=== PATIENT | male | born 1930 | race Caucasian/White ===

== ENCOUNTER 2017-07-30 17:25 | Emergency (ER) | payer MEDICARE, BC ==
[2017-07-30] MEDS ORDERED: NS 0.9% 1000 ML* 1,000 ML IV ONE (18:01)
[2017-07-30 18:27] LABS: ABS Basophils 0.1 10^3/ul (0-0.2); ABS Eosinophils 0.2 10^3/ul (0-0.6); ABS Lymphocytes 2.1 10^3/ul (1.0-4.8); ABS Monocytes 1.2 10^3/ul (0-0.8); ABS Neutrophils 5.3 10^3/ul (1.5-7.7); ABS Nucleated RBC 0.01 10^3/ul; Eosinophil % 2.1 % (0-6); Hematocrit 47 % (42-52); Hemoglobin 16.1 g/dl (14.0-18.0); Lymphocyte % 23.8 % (25-47); Mean Corpuscular HGB Conc 34 g/dl (31-36); Mean Corpuscular Hemoglobin 34 pg (27-31); Mean Corpuscular Volume 98 fL (80-94); Mean Platelet Volume 8 um3 (7.4-10.4); Nucleated Red Blood Cells % 0.1; Platelet Count 256 10^3/ul (150-450); Red Cell Distribution Width 15 % (10.5-15); White Blood Count 8.9 10^3/ul (3.5-10.8)
[2017-07-30 18:34] LABS: INR 1.49 (0.77-1.02)
[2017-07-30 18:42] LABS: EGFR Non-African American 73.6 (>60)
--- NOTE | 2017-07-30 18:48 | ED ---
Kang Medina Angela, scribed for Olimpia Borden MD on 07/30/17 at 1753 . Adult Trauma - HPI Summary HPI Summary: This pt is a 86 y/o male presenting to [facility] via EMS from [place] c/o mechanical fall today. Pt reports he was walking to the bathroom (with his walker) when he went to open the door and he believes he tripped on his left foot, subsequently falling. He denies head strike or LOC. When asked if anything hurts, pt replies "just my pride." He reports his hips are sore, more left than right, and states they have been sore for a long time. Pt notes "I'm embarrassed that I fell." He denies having chest pain or dizziness prior to his fall. Pt currently denies headache, neck pain, abd pain, nausea, vomiting. Pt normally ambulates with his walker. Pt is unsure if he is on any anticoagulants. Per EMS records: Pt's Tramadol has changed to TID from qd, trazodone changed from 100 mg to 200 mg. Pt is currently on Ativan TID. PMHx includes depression, anxiety, diabetes, chronic back pain, pacemaker. EMS also report that [place] stated pt had decreased appetite, not his usual self. Medication list later faxed from [facility] show pt is on Eliquis Vital signs on initial encounter are: Blood Pressure: 126/75 Pulse: 75 O2 Sat: 96 Respiration: 17 - History of Current Complaint Chief Complaint: EDGeneral Stated Complaint: INCREASED WEAKNESS Hx Obtained From: Patient Mechanism of Injury: Fall Loss of Consciousness: no loss of consciousness Onset/Duration: Started Hours Ago, Traumatic, Still Present Onset of Pain: Hours Onset Severity: Moderate Current Severity: Severe Pain Intensity: 8 Pain Scale Used: 0-10 Numeric Location: Other - left hip Character: Aching Aggravating Factor(s): Nothing Alleviating Factor(s): Nothing Associated Signs & Symptoms: Positive: Other: - left hip pain. Negative: SOB, Chest Pain, Nausea/Vomiting, Loss of Consciousness Related History: Anticoagulants - Additional Pertinent History Primary Care Physician: ISRA - Allergy/Home Medications Allergies/Adverse Reactions: Allergies Allergy/AdvReac Type Severity Reaction Status Date / Time No Known Allergies Allergy Verified 05/26/16 11:30 Home Medications: Home Medications Acetaminophen [Acetaminophen Extra Stren] 1,000 mg PO Q8HR PRN 07/30/17 [ History Confirmed 07/30/17] Apixaban* [Eliquis*] 5 mg PO Q12HR 07/30/17 [History Confirmed 07/30/17] Artificial Tear OPHTH.OINT* [Lacrilube OINT*] 1 applic BOTH EYES Q8HR PRN [History Confirmed 07/30/17] Carvedilol TAB* [Coreg TAB*] 3.125 mg PO BID 07/30/17 [History Confirmed ] Cholecalciferol TAB* [Vitamin D TAB*] 2,000 units PO DAILY PRN 07/30/17 [ History Confirmed 07/30/17] Finasteride TAB* [Proscar TAB*] 5 mg PO DAILY PRN 07/30/17 [History Confirmed ] LORazepam TAB(*) [Ativan 1 MG TAB (*)] 1 mg PO BID 07/30/17 [History Confirmed 07/30/17] Polyethylene Glycol 3350* [Miralax*] 17 gm PO DAILY 07/30/17 [History Confirmed 07/30/17] Senna/Docusate (NF) [Sennokot-S] 1 tab PO BID 07/30/17 [History Confirmed ] traZODone TAB* [Desyrel TAB*] 200 mg PO BEDTIME 07/30/17 [History Confirmed ] PMH/Surg Hx/FS Hx/Imm Hx Previously Healthy: No Endocrine/Hematology History: Reports: Hx Diabetes, Hx Anemia - receives B12 shots Cardiovascular History: Reports: Hx Congestive Heart Failure, Hx Coronary Artery Disease, Hx Hypercholesterolemia, Hx Hypertension, Hx Pacemaker/ICD, Other Cardiovascular Problems/Disorders - cardiomyopathy GI History: Reports: Hx Gastroesophageal Reflux Disease, Other GI Disorders - hernia repair Musculoskeletal History: Reports: Hx Back Problems - chronic back pain Sensory History: Reports: Hx Contacts or Glasses - not with the patient Opthamlomology History: Reports: Hx Contacts or Glasses - not with the patient Psychiatric History: Reports: Hx Anxiety - Cancer History Cancer Type, Location and Year: Hodgkin's lymphoma - Surgical History Surgery Procedure, Year, and Place: Hernia repair, pacemaker Hx Anesthesia Reactions: No Infectious Disease History: No Infectious Disease History: Denies: Traveled Outside the [place] in Last 30 Days - Family History Known Family History: Positive: Diabetes, Renal Disease - father, Other - Mother : [place] - Social History Lives: [facility] [place] Alcohol Use: Rare Substance Use Type: Reports: None Substance Use Comment - Amount & Last Used: pt said he drank socially when he was younger Smoking Status (MU): Former Smoker Type: Cigarettes Review of Systems Negative: Fever Eyes: Negative ENT: Negative Cardiovascular: Negative Respiratory: Negative Negative: Abdominal Pain, Vomiting, Nausea Musculoskeletal: Other - hip pain, more L than R Negative: Other - neck pain Skin: Negative Negative: Headache Psychological: Normal All Other Systems Reviewed And Are Negative: Yes Physical Exam - Summary Physical Exam Summary: Appearance: Well-appearing, mild pain distress, Well-nourished. Pt is wearing depends. Skin: Warm. Minor abrasion on the left patella. No ecchymosis or skin breaks on his back. There is 2 cm erythema on the left trochanter of the left hip. Head: Normal Head/Face inspection, no sign of trauma Eyes: Conjunctiva clear, PERRL EOMI ENT: Normal ENT inspection Neck: Supple. No c-spine tenderness. Respiratory: Lungs clear, Normal breath sounds, no respiratory distress, no chest wall or rib tenderness Cardio: RRR, No murmur, pulses normal, brisk capillary refill Abdomen: soft, nontender, no masses Musculoskeletal: Strength Intact/ ROM intact. No calf tenderness. No edema. No spinal tenderness, left hip with full ROM, able to lift off stretcher, full rotation, no leg weakness or deformity or foreshortening. Pelvis stable and nontender. Neuro: Alert, muscle tone normal, facial symmetry, speech normal, sensory/motor intact. A&Ox3, CN II-XII intact, Motor function 5/5, Sensation intact. Psychological: Normal GCS: 15 Triage Information Reviewed: Yes Vital Signs On Initial Exam: Initial Vitals Temp Pulse Resp BP Pulse Ox 97.4 F 75 24 117/80 93 07/30/17 17:29 07/30/17 17:29 07/30/17 17:29 07/30/17 17:29 07/30/17 17:29 Vital Signs Reviewed: Yes - [place] Coma Scale Best Eye Response: 4 - Spontaneous Best Motor Response: 6 - Obeys Commands Best Verbal Response: 5 - Oriented Diagnostics - Vital Signs Vital Signs Temp Pulse Resp BP Pulse Ox 07/30/17 17:29 97.4 F 75 24 117/80 93 - Laboratory Lab Results: Lab Results 07/30/17 07/30/17 07/30/17 Range/Units 18:16 18:16 18:16 WBC 8.9 (3.5-10.8) 10^3/ul RBC 4.80 (4.0-5.4) 10^6/ul Hgb 16.1 (14.0-18.0) g/dl Hct 47 (42-52) % MCV 98 H (80-94) fL MCH 34 H (27-31) pg MCHC 34 (31-36) g/dl RDW 15 (10.5-15) % Plt Count 256 (150-450) 10^3/ul MPV 8 (7.4-10.4) um3 Neut % (Auto) 59.8 (38-83) % Lymph % (Auto) 23.8 L (25-47) % Mclean % (Auto) 13.1 H (1-9) % Eos % (Auto) 2.1 (0-6) % Baso % (Auto) 1.2 (0-2) % Absolute Neuts (auto) 5.3 (1.5-7.7) 10^3/ul Absolute Lymphs (auto) 2.1 (1.0-4.8) 10^3/ul Absolute Monos (auto) 1.2 H (0-0.8) 10^3/ul Absolute Eos (auto) 0.2 (0-0.6) 10^3/ul Absolute Basos (auto) 0.1 (0-0.2) 10^3/ul Absolute Nucleated RBC 0.01 10^3/ul Nucleated RBC % 0.1 INR (Anticoag Therapy) 1.49 H (0.77-1.02) Sodium 134 (133-145) mmol/L Potassium 4.1 (3.5-5.0) mmol/L Chloride 103 (101-111) mmol/L Carbon Dioxide 21 L (22-32) mmol/L Anion Gap 10 (2-11) mmol/L BUN 15 (6-24) mg/dL Creatinine 0.97 (0.67-1.17) mg/dL Est GFR ( Amer) 94.6 (>60) Est GFR (Non-Af Amer) 73.6 (>60) BUN/Creatinine Ratio 15.5 (8-20) Glucose 103 H (70-100) mg/dL Lactic Acid (0.5-2.0) mmol/L Calcium 9.5 (8.6-10.3) mg/dL Magnesium 1.9 (1.9-2.7) mg/dL Total Bilirubin 0.90 (0.2-1.0) mg/dL AST 15 (13-39) U/L ALT 9 (7-52) U/L Alkaline Phosphatase 107 H (34-104) U/L Troponin I 0.03 (<0.04) ng/mL C-Reactive Protein 10.50 H (< 5.00) mg/L Total Protein 7.1 (6.4-8.9) g/dL Albumin 4.0 (3.2-5.2) g/dL Globulin 3.1 (2-4) g/dL Albumin/Globulin Ratio 1.3 (1-3) TSH Pending 07/30/17 Range/Units 18:16 WBC (3.5-10.8) 10^3/ul RBC (4.0-5.4) 10^6/ul Hgb (14.0-18.0) g/dl Hct (42-52) % MCV (80-94) fL MCH (27-31) pg MCHC (31-36) g/dl RDW (10.5-15) % Plt Count (150-450) 10^3/ul MPV (7.4-10.4) um3 Neut % (Auto) (38-83) % Lymph % (Auto) (25-47) % Mclean % (Auto) (1-9) % Eos % (Auto) (0-6) % Baso % (Auto) (0-2) % Absolute Neuts (auto) (1.5-7.7) 10^3/ul Absolute Lymphs (auto) (1.0-4.8) 10^3/ul Absolute Monos (auto) (0-0.8) 10^3/ul Absolute Eos (auto) (0-0.6) 10^3/ul Absolute Basos (auto) (0-0.2) 10^3/ul Absolute Nucleated RBC 10^3/ul Nucleated RBC % INR (Anticoag Therapy) (0.77-1.02) Sodium (133-145) mmol/L Potassium (3.5-5.0) mmol/L Chloride (101-111) mmol/L Carbon Dioxide (22-32) mmol/L Anion Gap (2-11) mmol/L BUN (6-24) mg/dL Creatinine (0.67-1.17) mg/dL Est GFR ( Amer) (>60) Est GFR (Non-Af Amer) (>60) BUN/Creatinine Ratio (8-20) Glucose (70-100) mg/dL Lactic Acid 1.5 (0.5-2.0) mmol/L Calcium (8.6-10.3) mg/dL Magnesium (1.9-2.7) mg/dL Total Bilirubin (0.2-1.0) mg/dL AST (13-39) U/L ALT (7-52) U/L Alkaline Phosphatase (34-104) U/L Troponin I (<0.04) ng/mL C-Reactive Protein (< 5.00) mg/L Total Protein (6.4-8.9) g/dL Albumin (3.2-5.2) g/dL Globulin (2-4) g/dL Albumin/Globulin Ratio (1-3) TSH Result Diagrams: 07/30/17 18:16 07/30/17 18:16 Lab Statement: Any lab studies that have been ordered have been reviewed, and results considered in the medical decision making process. - Radiology Chest XR Radiology Interpretation Completed By: Radiologist - pending official radiology report, please see [facility]. Left hip XR Radiology Interpretation Completed By: Radiologist - pending official radiology report, please see [facility]. - CT brain CT CT Interpretation Completed By: Radiologist - pending official radiology report , please see [facility]. Cervical spine CT CT Interpretation Completed By: Radiologist - pending official radiology report , please see [facility]. - EKG 18:11 Cardiac Rate: NL EKG Interpretation: 100% paced rhythm at 74 bpm. EKG Comparison: No Significant Change - no change from prior EKG done on . Adult Trauma Course/Dx - Course Course Of Treatment: Medications reviewed this visit. EKG shows 100% paced rhythm at 74 bpm, no change from prior EKG done on 05/26/16. Pt will be signed out to Dr. Reyna, pending disposition, awaiting labs, chest XR, CT brain, CT cervical spine, and left hip XR. - Diagnoses Differential Diagnosis/HQI/PQRI: Positive: Abrasion(s), Contusion(s), Fracture Provider Diagnoses: Accident due to mechanical fall without injury Discharge - Discharge Plan Condition: Stable Disposition: OTHER Discharge Disposition Comment: signed out to Dr. Reyna, pending dispo, awaiting images Patient Education Materials: Fall Prevention (ED) Referrals: Bella Palomino MD [Primary Care Provider] - 1 Week Additional Instructions: Patient will be discharged to [facility] with diagnosis of Mechanical Fall, no Injury and follow up with PCP within the week. Patient is agreeable with this plan. RETURN TO EMERGENCY DEPARTMENT FOR ANY NEW OR WORSENING SYMPTOMS The documentation as recorded by the Kang wagner Angela accurately reflects the service I personally performed and the decisions made by , Olimpia Borden MD.
--- NOTE | 2017-07-30 19:30 | RAD ---
INDICATION: Head injury. COMPARISON: There are no prior studies available for comparison. TECHNIQUE: Contiguous axial sections of the brain were obtained from the skull base to the vertex without contrast. FINDINGS: The ventricles, cisterns and sulci are enlarged consistent with diffuse atrophy. There are multiple focal areas of decreased density in the subcortical and periventricular white matter suggestive of moderate chronic small vessel ischemic changes. No other focal abnormality or mass effect is seen. There is no evidence for hemorrhage. No significant focal osseous abnormality is seen. The visualized portion of the paranasal sinuses and mastoid air cells appear clear. IMPRESSION: 1. NO EVIDENCE FOR ACUTE INTRACRANIAL ABNORMALITY. 2. ATROPHY AND FINDINGS CONSISTENT WITH CHRONIC SMALL VESSEL ISCHEMIC CHANGES.
--- NOTE | 2017-07-30 19:36 | RAD ---
INDICATION: Trauma. COMPARISON: There are no prior studies available for comparison. TECHNIQUE: Contiguous axial sections were obtained from the skull base through the T1 vertebra. Images were reconstructed in the sagittal and coronal planes. FINDINGS: There is straightening of the cervical spine. There is retrolisthesis of C5 and C6 relative to C4 and C7 of approximately 3 mm. No prevertebral soft tissue swelling or fracture is seen At the C3-C4 level there is mild posterior uncinate process spurring and severe hypertrophic changes within the left facet joint. No spinal canal narrowing is present. There is moderate to severe neural foraminal narrowing on the left side. At the C4-C5 level there is mild posterior uncinate process spurring and mild hypertrophic changes within the facet joints. No spinal canal narrowing is present. There is mild bilateral neural foraminal narrowing. At the C5-C6 level there is mild posterior uncinate process spurring which causes mild spinal canal narrowing. There is moderate bilateral neural foraminal narrowing. At the C6-7 level there is mild posterior uncinate process spurring. There is mild to moderate spinal canal narrowing and moderate bilateral neural foraminal narrowing. IMPRESSION: 1. STRAIGHTENING OF THE CERVICAL SPINE AND RIGHT MILD RETROLISTHESIS AT THE C4-C5 LEVEL LIKELY DEGENERATIVE IN ORIGIN. NO FRACTURE IS SEEN. 2. MODERATE CERVICAL SPONDYLOSIS.
--- NOTE | 2017-07-30 19:38 | RAD ---
INDICATION: Fall and weakness. COMPARISON: Comparison is made with a prior chest x-ray study from May 26, 2016. TECHNIQUE: An AP view of the chest was obtained. FINDINGS: There is a dual-chamber transvenous pacemaker present. The heart is mildly enlarged. The lungs are underinflated and clear. No pleural effusion is seen. There are old healed left lower lateral rib fractures. IMPRESSION: NO EVIDENCE FOR ACUTE FINDING.
--- NOTE | 2017-07-30 19:39 | RAD ---
INDICATION: Left hip injury. COMPARISON: Comparison is made with a prior study from February 12, 2016. TECHNIQUE: An AP view of the pelvis and frontal and lateral views of the left hip were obtained. FINDINGS: The bones are in normal alignment. No fracture is seen. There is mild to moderate bilateral osteoarthritic change in the hips. IMPRESSION: NO EVIDENCE FOR FRACTURE, IF THE PATIENT'S SYMPTOMS PERSIST RECOMMEND FOLLOW-UP IMAGING.
--- NOTE | 2017-07-30 20:26 | ED ---
Dylan Medina Tecjoon, scribed for Ludwig Reyna MD on 07/30/17 at 2024 . Progress - Progress Note Progress Note: CXR reveals, per radiologist, NO EVIDENCE FOR ACUTE FINDING ED physician has reviewed this radiology report. CT Brain reveals, per radiologist, 1. NO EVIDENCE FOR ACUTE INTRACRANIAL ABNORMALITY. 2. ATROPHY AND FINDINGS CONSISTENT WITH CHRONIC SMALL VESSEL ISCHEMIC CHANGES. ED physician has reviewed this radiology report. CT Cervical Spine reveals, per radiologist, IMPRESSION: 1. STRAIGHTENING OF THE CERVICAL SPINE AND RIGHT MILD RETROLISTHESIS AT THE C4- C5 LEVEL LIKELY DEGENERATIVE IN ORIGIN. NO FRACTURE IS SEEN. 2. MODERATE CERVICAL SPONDYLOSIS. ED physician has reviewed this radiology report. Hip/Pel XR reveals, per radiologist, IMPRESSION: NO EVIDENCE FOR FRACTURE, IF THE PATIENT'S SYMPTOMS PERSIST RECOMMEND FOLLOW-UP IMAGING. ED physician has reviewed this radiology report. Re-Evaluation - Re-Evaluation First Eval Re-Evaluation Time: 20:22 Change: Improved Comment: Patient tripped on rug and fell. Reviewed imaging results with patient. Patient states that he feels better and no longer feels pain. Patient is currently eating in room. Patient will be discharged to [facility] with diagnosis of Mechanical Fall, no Injury and follow up with PCP within the week. Patient is agreeable with this plan. Course/Dx - Course Course Of Treatment: Medications reviewed this visit. EKG shows 100% paced rhythm at 74 bpm, no change from prior EKG done on 05/26/16. Pt will be signed out to Dr. Reyna, pending disposition, awaiting chest XR, CT brain, CT cervical spine, and left hip XR. Patient tripped on rug and fell. Reviewed imaging results with patient. Patient states that he feels better and no longer feels pain. Patient is currently eating in room. Patient will be discharged to [facility] with diagnosis of Mechanical Fall, no Injury and follow up with PCP within the week. Patient is agreeable with this plan. - Diagnoses Provider Diagnoses: Accident due to mechanical fall without injury The documentation as recorded by the Dylan wagner Tecjoon accurately reflects the service I personally performed and the decisions made by me, Ludwig Reyna MD.
[2017-07-30 20:48] VITALS: BP 130/78
== END 2017-07-30 21:56 ==
LOC: ED 17:25
DX: Z04.3 Encounter for examination and observation following other accident (principal); G31.9 Degenerative disease of nervous system, unspecified; M47.812 Spondylosis without myelopathy or radiculopathy, cervical region; Z91.81 History of falling; Z87.891 Personal history of nicotine dependence
CPT/HCPCS: 36415; 70450; 71010; 72125; 80053; 83605; 83735; 84443; 84484; 85025; 85610; 86140; 93005; 96360; 99283

== ENCOUNTER 2017-08-18 12:37 | Observation (INO) | payer BC, MEDICARE ==
--- NOTE | 2017-08-18 15:10 | RAD ---
Indication: Fall striking posterior head on floor. Comparison: July 30, 2017 Technique: Noncontrast CT vertex of skull through foramen magnum. Report: Moderate prominence of the cerebral sulci and cerebellar fissures reflecting atrophy. Unremarkable ventricles and basal cisterns. Decreased density in the periventricular and subcortical white matter while non-specific is most likely due to chronic microangiopathy. Negative for esparza matter white matter obscuration, intra or extra-axial hemorrhage, or mass effect. Unremarkable orbital contents. Negative for calvarial or skull base fracture. Clear visualized paranasal sinuses and mastoid air spaces. Negative for scalp hematoma. Chronic soft tissue density focal lesions at the anterior scalp at the vertex most suspicious for sebaceous cysts. IMPRESSION: 1. No evidence for traumatic brain injury or acute intracranial process. 2. Involutional change and stigmata of chronic small vessel ischemic disease.
[2017-08-18 17:45] LABS: Hematocrit 47 % (42-52); Hemoglobin 16.2 g/dl (14.0-18.0); Mean Corpuscular HGB Conc 34 g/dl (31-36); Mean Corpuscular Hemoglobin 33 pg (27-31); Mean Corpuscular Volume 96 fL (80-94); Mean Platelet Volume 9 um3 (7.4-10.4); Platelet Count 254 10^3/ul (150-450); Red Blood Count 4.89 10^6/ul (4.0-5.4); Red Cell Distribution Width 15 % (10.5-15); White Blood Count 10.4 10^3/ul (3.5-10.8)
[2017-08-18 17:47] LABS: ABS Basophils 0.1 10^3/ul (0-0.2); ABS Eosinophils 0.2 10^3/ul (0-0.6); ABS Monocytes 1.7 10^3/ul (0-0.8); ABS Neutrophils 6.5 10^3/ul (1.5-7.7); ABS Nucleated RBC 0 10^3/ul; Eosinophil % 1.5 % (0-6); Lymphocyte % 18.7 % (25-47); Nucleated Red Blood Cells % 0.1
[2017-08-18 18:10] LABS: EGFR Non-African American 66.4 (>60)
[2017-08-18] MEDS ORDERED: diPHENhydraMINE PO* 50 MG ONE (19:26)
[2017-08-18] MEDS ORDERED: diPHENhydraMINE PO* 50 MG PO ONE (19:29)
--- NOTE | 2017-08-18 20:39 | RAD ---
INDICATION: Altered mental status COMPARISON: Chest x-ray dated July 30, 2017 TECHNIQUE: Single AP portable view of the chest was obtained. FINDINGS: Again seen is a left upper chest cardiac pacemaker with 2 leads overlying the heart. Similar the prior chest x-ray the lung volumes are small possibly due to poor inspiratory effort. There is no focal mass or consolidation. The left costophrenic angle is obscured relative to the prior chest x-ray. IMPRESSION: Small lung volumes could be seen due to poor respiratory effort. There is potentially a small left-sided pleural effusion or left lung base atelectasis.
--- NOTE | 2017-08-18 23:14 | ED ---
Ryan Medina Gabriel, scribed for Yusuf Stafford MD on 08/18/17 at 1413 . Head Injury - HPI Summary HPI Summary: This patient is a 86 year old M BIBA to [facility] from [facility] living after he fell out of his motorized chair. Patient denies TALAVERA, neck pain, LOC, and back pain. The report states the patient is confused at baseline and that he fell out of a chair. Currently the patient is claiming her feel off a bicycle but is not in pain. - History Of Current Complaint Chief Complaint: EDHeadInjury Stated Complaint: FALL/HEAD INJURY Time Seen by Provider: 08/18/17 13:53 Hx Obtained From: Patient Mechanism Of Injury: Fall From Height Of: - chair Onset/Duration: Still Present Severity Currently: None Pain Intensity: 0 Pain Scale Used: 0-10 Numeric Associated Signs And Symptoms: Negative - TALAVERA, neck pain, LOC, and back pain - Allergies/Home Medications Allergies/Adverse Reactions: Allergies Allergy/AdvReac Type Severity Reaction Status Date / Time No Known Allergies Allergy Verified 05/26/16 11:30 Home Medications: Home Medications Cyanocobalamin INJ * [Vitamin B12 INJ *] 1,000 mcg IM MONTHLY 08/18/17 [History Confirmed 08/18/17] Loperamide CAP* [Imodium CAP*] 2 mg PO QID PRN 08/18/17 [History Confirmed 08/18] Senna TAB* [Senokot TAB*] 2 tab PO BID 08/18/17 [History Confirmed 08/18/17] PMH/Surg Hx/FS Hx/Imm Hx Endocrine/Hematology History: Reports: Hx Diabetes, Hx Anemia - receives B12 shots Cardiovascular History: Reports: Hx Congestive Heart Failure, Hx Coronary Artery Disease, Hx Hypercholesterolemia, Hx Hypertension, Hx Pacemaker/ICD, Other Cardiovascular Problems/Disorders - cardiomyopathy GI History: Reports: Hx Gastroesophageal Reflux Disease, Other GI Disorders - hernia repair History: Reports: Other Problems/Disorders - recent UTI Musculoskeletal History: Reports: Hx Back Problems - chronic back pain Sensory History: Reports: Hx Contacts or Glasses - not with the patient Opthamlomology History: Reports: Hx Contacts or Glasses - not with the patient Psychiatric History: Reports: Hx Anxiety - Cancer History Cancer Type, Location and Year: Hodgkin's lymphoma - Surgical History Surgery Procedure, Year, and Place: Hernia repair, pacemaker Hx Anesthesia Reactions: No Infectious Disease History: No Infectious Disease History: Denies: Traveled Outside the [place] in Last 30 Days - Family History Known Family History: Positive: Diabetes, Renal Disease - father, Other - Mother : [place] - Social History Alcohol Use: Rare Substance Use Type: Reports: None Substance Use Comment - Amount & Last Used: pt said he drank socially when he was younger Smoking Status (MU): Former Smoker Type: Cigarettes Review of Systems Negative: Fever, Chills Negative: Erythema Negative: Sore Throat Negative: Chest Pain Negative: Shortness Of Breath, Cough Negative: Abdominal Pain, Vomiting, Nausea Negative: dysuria, hematuria Musculoskeletal: Negative - neck and back pain Negative: Myalgia, Edema Neurological: Negative - dizziness and LOC Negative: Headache All Other Systems Reviewed And Are Negative: Yes Physical Exam - Summary Physical Exam Summary: Constitutional: Well-developed, Well-nourished, Alert. (-) Distressed Skin: Warm, Dry HENT: Normocephalic; Atraumatic Eyes: Conjunctiva normal Neck: Musculoskeletal ROM normal neck. (-) JVD, (-) Stridor, (-) Tracheal deviation Cardio: Rhythm regular, rate normal, Heart sounds normal; Intact distal pulses; The pedal pulses are 2+ and symmetric. Radial pulses are 2+ and symmetric. (-) Murmur Pulmonary/Chest wall: Effort normal. (-) Respiratory distress, (-) Wheezes, (-) Rales Abd: Soft, (-) Tenderness, (-) Distension, (-) Guarding, (-) Rebound Musculoskeletal: (-) Edema Lymph: (-) Cervical adenopathy Neuro: Alert, Oriented x3 Psych: Mood and affect Normal Triage Information Reviewed: Yes Vital Signs On Initial Exam: Initial Vitals Temp Pulse Resp BP Pulse Ox 97.3 F 75 15 114/76 99 08/18/17 12:42 08/18/17 12:42 08/18/17 12:42 08/18/17 12:42 08/18/17 12:42 Vital Signs Reviewed: Yes Diagnostics - Vital Signs Vital Signs Temp Pulse Resp BP Pulse Ox 08/18/17 12:42 97.3 F 75 15 114/76 99 - Laboratory Result Diagrams: 08/18/17 17:35 08/18/17 17:35 Lab Statement: Any lab studies that have been ordered have been reviewed, and results considered in the medical decision making process. - Radiology CXR Radiology Interpretation Completed By: Radiologist - CXR reveals, per radiologist, Small lung volumes could be seen due to poor respiratory effort. There is potentially a small left-sided pleural effusion or left lung base atelectasis. ED physician has reviewed this report. - CT CT brain CT Interpretation Completed By: Radiologist - 1. No evidence for traumatic brain injury or acute intracranial process. 2. Involutional change and stigmata of chronic small vessel ischemic disease. ED physician has reviewed this radiology report. - EKG 17:10 Cardiac Rate: NL EKG Rhythm: Sinus Rhythm - at 75 BPM EKG Interpretation: Paced, No STEMI Re-Evaluation - Re-Evaluation First Eval Re-Evaluation Time: 15:16 Change: Unchanged - Patient is still alert. Head Injury Course/Dx Assessment/Plan: This patient is a 86 year old M BIBA to [facility] from [facility] after he fell out of his motorized chair. Patient denies TALAVERA, neck pain, LOC, and back pain. The report states the patient is confused at baseline. Currently the patient is claiming her feel off a bicycle but is not in pain. An EKG reveals. CT Brain reveals, per radiologist, 1. No evidence for traumatic brain injury or acute intracranial process. 2. Involutional change and stigmata of chronic small vessel ischemic disease. The patient suffered a near fall in ED, was unable to support weight, and unable to use ED walker. His facility is unable to take him back with his current amount of ambulation but he can be placed on a higher floor tomorrow at his facility. He will be placed under observation tonight and will return to his facility tomorrow. The patient is agreeable with this plan. - Diagnoses Provider Diagnoses: Fall - Physician Notifications Discussed Care Of Patient With: Jesus Kothari Time Discussed With Above Provider: 21:03 Instructed by Provider To: Admit As Observation Discharge - Discharge Plan Condition: Stable Disposition: HOME Referrals: Stuart Umana MD [Primary Care Provider] - 5 Days Additional Instructions: RETURN TO THE EMERGENCY DEPARTMENT FOR CHANGING OR WORSENING SYMPTOMS. The documentation as recorded by the Ryan wagner Gabriel accurately reflects the service I personally performed and the decisions made by , Yusuf Stafford MD.
[2017-08-19] MEDS ORDERED: Artificial Tear OPHTH.OINT* 3.5 GM BOTH EYES PRN (01:06)
[2017-08-19] MEDS ORDERED: Cholecalciferol TAB* 1000 UNITS PO PRN (01:06)
[2017-08-19] MEDS ORDERED: Loperamide CAP* 2 MG PO PRN (01:06)
[2017-08-19] MEDS ORDERED: Finasteride TAB* 5 MG PO PRN (01:06)
[2017-08-19 04:54] LABS: Urine Appearance Cloudy; Urine Blood 1+ (Negative); Urine Color Yellow; Urine Ketones Negative (Negative); Urine Protein 1+(30 mg/dL) (Negative); Urine Urobilinogen Negative (Negative)
[2017-08-19] MEDS: Senna TAB PO SCH ×2 (09:35→20:30)
[2017-08-19] MEDS: cefTRIAXone(*) 1 GM in NS 0.9% 50 ML* 50 ML IVPB SCH (09:35)
[2017-08-19] MEDS: Carvedilol TAB* 3.125 MG PO SCH ×2 (09:36→20:36)
[2017-08-19] MEDS: Apixaban* 5 MG TAB PO SCH ×2 (09:36→20:30)
[2017-08-19] MEDS: Polyethylene Glycol 3350* 17 GM PACKET PO SCH (09:37)
--- NOTE | 2017-08-19 09:50 | HP ---
HISTORY AND PHYSICAL: DATE OF ADMISSION: 08/19/17 ADMITTING PROVIDER: Jesus Kothari MD PRIMARY CARE PROVIDER: Bella Palomino MD CHIEF COMPLAINT: Five to six falls and inability to return to his [facility] situation given the frequency of falls. HISTORY OF PRESENT ILLNESS: Mr. Hester is an 86-year-old male with past medical history of type 2 diabetes, GERD, hypertension, coronary artery disease, Hodgkin 's lymphoma, status post permanent pacemaker, systolic heart failure, last EF 20 % to 25% in February 2016, [id number] aortic insufficiency on 2015 echo improved to mild 2015, who has been residing at [place] and presents with inability to walk with 5 to 6 falls, he says within the last day. He is a very poor historian and is unable to give much consistent history. Denies any current chest pain, is oriented to hospital and name, but not year. The patient was admitted for inability to ambulate and need for higher level of care /[facility]ci facility. He was recently discharged on 05/31/17, again with multiple falls, intermittent confusion and had been discharged to [facility] [place] for rehab. He was diagnosed with a urinary tract infection at that time. Here in the [facility] ED, he got imaging, a CT of his head, which showed no acute process. Of note, this is being on Eliquis. CT head did demonstrate stigmata of chronic small vessel ischemic disease and involutional change. He had a chest x- ray, which demonstrated small lung volumes, potential small left-sided pleural effusion or atelectasis. His EKG demonstrated a paced rhythm, QRS 199, no T- wave inversions. Being admitted to observation status for need for higher level of care in the setting of frequent falls. MEDICATIONS: Unable to be completely verified, but per ED, medical reconciliation includes: 1. Trazodone 200 mg p.o. q.h.s. 2. Ativan 1 mg p.o. b.i.d. 3. Tramadol 50 mg p.o. t.i.d. 4. Lipitor 20 mg p.o. q.h.s. 5. Senna 2 tabs p.o. b.i.d. 6. Nitroglycerin patch transdermal daily. 7. Eliquis 5 mg q.12 hours. 8. Flomax 0.4 mg p.o. q.h.s. 9. Carvedilol 3.125 mg p.o. b.i.d. 10. MiraLAX 17 g p.o. daily. 11. Proscar 5 mg p.o. daily p.r.n. 12. Cholecalciferol 2000 units p.o. daily. 13. Cyanocobalamin 1000 mcg IM monthly. 14. Amlodipine 2 mg p.o. 4 times a day p.r.n. 15. Artificial tears both eyes q.8 hours p.r.n. 16. Acetaminophen 1000 mg p.o. q.8 hours p.r.n. ALLERGIES: No known drug allergies. FAMILY HISTORY: Unobtainable at this time. SOCIAL HISTORY: Remote tobacco use, quit many years ago. No alcohol use. The patient wanted his cousin, "Nader Huerta", to be his medical proxy. Of note, his previous admissions listed as Batsheva Lopez as is his healthcare proxy. Never . No children. REVIEW OF SYSTEMS: Poor historian. Negative except as per HPI. PHYSICAL EXAMINATION GENERAL APPEARANCE: No acute distress. Initially sleeping, but arousable. VITAL SIGNS: Temperature 97.8, heart rate 85, respiratory rate 18, satting 93% on room air, blood pressure 122/64. HEENT: Normocephalic, atraumatic. Pupils are equally round and reactive to light. Extraocular motions intact. NECK: Supple. PULMONARY: Clear to auscultation bilaterally with no wheezing, rales, or rhonchi. CARDIOVASCULAR: Regular rate and rhythm. Diastolic murmur 2/6 right upper sternal border. ABDOMEN: Soft, nontender, nondistended. No peritoneal signs. No guarding. EXTREMITIES: Warm, well perfused. No peripheral edema. SKIN: No lesions, no rashes appreciated. NEUROLOGIC: Senior Staff Psychologist strength intact 5/5 bilaterally. Cranial nerves II through XII intact. Sensation intact. LABORATORY DATA: White count 10.4, hemoglobin 16.2, hematocrit 47, platelets 254. Sodium 135, potassium 3.6, chloride 100, carbon dioxide 27, BUN 19, creatinine 1.06, glucose 119, lactic acid 1.8, magnesium 2.0. Total bili 1.10, LFTs otherwise within normal limits. TSH 3.04. IMAGING: As per HPI. ASSESSMENT AND PLAN: Harrison Hester is an 86-year-old male with history of frequent falls and significant cardiac history with hypertension, coronary artery disease, myocardial infarction, last systolic function 20 to 25% and Hx of [id number] aortic insufficiency though improved on to mild on last ECHO. He says his neurologist is Dr. Foster. We will try to obtain more outpatient records as patient is a poor historian. His last echo was in February 2016, and given his severe depressed systolic function, there could be a component of cardiogenic syncope evolved. I will order a repeat transthoracic echo for now unless we can confirm any more recent study or records from Dr. Foster. Otherwise, he is being admitted for need for placement of a higher level of care. We will get Physical Therapy to see him and maybe he will be able to return to [place] at the SNF side rather than the independent living side. I will continue his atorvastatin 20 mg q.h.s., his Eliquis 5 mg q.12 hours for unclear indication of this time, try to clarify. We will hold his tramadol and trazodone for now and his Ativan. Continue his Coreg 3.125 mg p.o. b.i.d. We will get orthostatic blood pressures on him. He is observation status currently desires to be DNR/DNI. He does not have a MOLST form on him currently. We will try to obtain. We will obtain records from [place]. [id number]/[facility] #: [id number] AUNG
--- NOTE | 2017-08-19 16:32 | ECHO ---
Patient: GIOVANNA LOPEZ [facility] Rec#: [id number] : 1930 Date: 08/19/2017 Age: 86y Height: 182.9 cm / 72.0 in Weight: 72.6 kg / 160.0 lbs Sex: M BSA: 1.9 Room#: [facility] Admit Date#: 08/18/2017 Type: Inpatient Referring: Jesus Kothari Reading: Dalton Pederson MD Rn First Assist: Dena Pride RN RDCS CC: Stuart Umana MD Transthoracic Echocardiogram Indication: CHF , recurrent falls, BP: 122/64 HR: 75 Rhythm: Paced Findings Technical Comments: The study quality is fair. The study is technically limited due to patient body habitus. Left Ventricle: The left ventricular chamber size is normal. Mild concentric left ventricular hypertrophy is observed. There is global hypokinesis of the left ventricle with minor regional variation. There is severely decreased left ventricular systolic function. The estimated ejection fraction is 25-30%. There is abnormal ventricular septal wall motion consistent with right ventricular pacemaker. The assessment of diastolic function is non-diagnostic. Left Atrium: The left atrium is moderately dilated. Right Ventricle: The right ventricular cavity size is normal. The right ventricular global systolic function is low normal. A pacemaker wire is visualized in the right ventricle. Right Atrium: The right atrium is mildly dilated. A pacemaker wire is visualized in the right atrium. Aortic Valve: The aortic valve is trileaflet. The aortic valve leaflets are moderately thickened. Systolic excursion of the aortic valve cusps is reduced. There is mild to moderate aortic regurgitation. There is mild to moderate aortic stenosis. The mean gradient of the aortic valve is 11 mmHg. The aortic valve area, by VTI's, is calculated at 1.4 cm2. The dimensionless index is .43 The measured aortic regurgitation pressure half-time is 503 msec. Mitral Valve: The mitral valve leaflets are mildly thickened. There is mild to moderate mitral regurgitation. There is no evidence of mitral stenosis. Tricuspid Valve: The tricuspid valve leaflets are normal. There is mild to moderate tricuspid regurgitation. There is evidence of moderate pulmonary hypertension. There is no tricuspid stenosis. Pulmonic Valve: The pulmonic valve appears normal. There is mild pulmonic regurgitation. There is no pulmonic stenosis. Pericardium: There is no significant pericardial effusion. A pericardial fat pad is visualized. Aorta: There is moderate dilatation of the ascending aorta. There is no dilatation of the aortic arch. There is mild dilatation of the aortic root. Pulmonary Artery: The main pulmonary artery appears normal. Venous: The venous system is not well visualized. The inferior vena cava is not visualized. Conclusions The study is technically limited due to patient body habitus. There is global hypokinesis of the left ventricle with minor regional variation. There is severely decreased left ventricular systolic function. The estimated ejection fraction is 25-30%. There is abnormal ventricular septal wall motion consistent with right ventricular pacemaker. The left atrium is moderately dilated. The right ventricular global systolic function is low normal. A pacemaker wire is visualized in the right ventricle. A pacemaker wire is visualized in the right atrium. There is mild to moderate aortic regurgitation. There is mild to moderate aortic stenosis. The aortic valve area, by VTI's, is calculated at 1.4 cm2. The dimensionless index is .43 There is mild to moderate mitral regurgitation. There is mild to moderate tricuspid regurgitation. There is evidence of moderate pulmonary hypertension. There is mild pulmonic regurgitation. There is moderate dilatation of the ascending aorta. Compared to repor of study from 02/14/2016 there is little change, the ascending aorta is minimally increased from 4.0 to 4.2cm, the degree of aortic regurgitation and stenosis mildly progressed (was reported as mild) although given low EF may be underestimated. Measurements Name Value Normal Range RVDdMajor (2D) 3.9 cm (2.2 - 4.4) RAd ISD 4CH 5.1 cm (3.4 - 4.9) RA (A4C)W 4.2 cm (2.9 - 4.6) IVSd (2D) 1.2 cm (0.6 - 1) LVPWd (2D) 1.2 cm (0.6 - 1) LVIDd (2D) 4.9 cm (3.6 - 5.4) LVIDs (2D) 4.3 cm - LV FS (2D) 12 % (25 - 45) Aortic Annulus 2.1 cm (1.4 - 2.6) Ao root diameter (2D) 3.7 cm (2.1 - 3.5) Ascending Ao 4.2 cm (2.1 - 3.4) Aortic arch 3.2 cm (1.8 - 3.4) LA dimension (AP) 2D 5 cm (2.3 - 3.8) LAd ISD 4CH 6.3 cm (2.9 - 5.3) LA ISD 4CH W 5.3 cm (2.5 - 4.5) Name Value Normal Range LA ESV SP 4CH (A/L) 107 ml - LA ESV SP 2CH (A/L) 73 ml - LA ESV BP (A/L) 90 ml - LA ESV BP (A/L) index 46.5 ml/m2 - LA ESV SP 4CH (MOD) 103 ml - LA ESV SP 2CH (MOD) 70 ml - Name Value Normal Range MV E-wave Vmax 0.92 m/sec - MV deceleration time 176 msec - MV A-wave Vmax 0.42 m/sec - MV E:A ratio 2.2 ratio - LV septal e' Vmax 0.03 m/sec - LV lateral e' Vmax 0.09 m/sec - LV E:e' septal ratio 30.7 ratio - LV E:e' lateral ratio 10.2 ratio - Name Value Normal Range AV Vmax 2.1 m/sec - AV VTI 40.3 cm - AV peak gradient 18 mmHg - AV mean gradient 11 mmHg - LVOT diameter 2 cm - LVOT Vmax 0.82 m/sec - LVOT VTI 17.5 cm - LVOT peak gradient 2.7 mmHg - LVOT mean gradient 1.4 mmHg - DOI (VTI) 0.43 ratio - DOI (Vmax) 0.39 ratio - SV LVOT 57 ml - MESHA (continuity Vmax) 1.2 cm2 - MESHA (continuity VTI) 1.4 cm2 - AR PHT 503 msec - BRANDI Vmax 0.39 m/sec - Name Value Normal Range TR Vmax 3 m/sec - TR peak gradient 36 mmHg - RAP 8 mmHg - RVSP 46 mmHg - Name Value Normal Range PV Vmax 0.57 m/sec -
--- NOTE | 2017-08-19 19:14 | PN ---
Subjective Date of Service: 08/19/17 Interval History: Pt feels well, thinks he is at [place]. no new complaints Objective Active Medications: Acetaminophen (Tylenol Tab*) 975 mg PO Q8H PRN PRN Reason: PAIN - MILD TO MODERATE Apixaban (Eliquis*) 5 mg PO Q12HR [facility] Last Admin: 08/19/17 09:36 Dose: 5 mg Artificial Tears (Lacrilube Oint*) 1 applic BOTH EYES Q8HR PRN PRN Reason: DRY EYE Atorvastatin Calcium (Lipitor*) 20 mg PO BEDTIME [facility] Carvedilol (Coreg Tab*) 3.125 mg PO BID [facility] Last Admin: 08/19/17 09:36 Dose: 3.125 mg Cholecalciferol (Vitamin D Tab*) 2,000 units PO DAILY PRN PRN Reason: DIZZINESS Finasteride (Proscar Tab*) 5 mg PO DAILY PRN PRN Reason: BLOOD PRESSURE Ceftriaxone Sodium 1 gm/ (Sodium Chloride) 50 mls @ 200 mls/hr IVPB Q24H [facility] Last Admin: 08/19/17 09:35 Dose: 200 mls/hr Loperamide HCl (Imodium Cap*) 2 mg PO QID PRN PRN Reason: LOOSE STOOLS Polyethylene Glycol/Electrolytes (Miralax*) 17 gm PO DAILY [facility] Last Admin: 08/19/17 09:37 Dose: Not Given Senna (Senokot Tab*) 2 tab PO BID [facility] Last Admin: 08/19/17 09:35 Dose: 2 tab Tamsulosin HCl (Flomax Cap*) 0.4 mg PO BEDTIME [facility] Vital Signs - 8 hr 08/19/17 08/19/17 16:01 17:17 Temperature 97.4 F 98.3 F Pulse Rate 15 75 Respiratory 16 20 Rate Blood Pressure 93/40 108/72 (mmHg) O2 Sat by Pulse 84 98 Oximetry Oxygen Devices in Use Now: None Appearance: 86 to M in nAD, aAOx2 Eyes: No Scleral Icterus, PERRLA Ears/Nose/Mouth/Throat: NL Teeth, Lips, Gums, Mucous Membranes Moist Neck: NL Appearance and Movements; NL JVP, Trachea Midline Respiratory: Symmetrical Chest Expansion and Respiratory Effort, Clear to Auscultation Cardiovascular: RRR, - - 2/6 FATEMEH Abdominal: NL Sounds; No Tenderness; No Distention, No Hepatosplenomegaly Lymphatic: No Cervical Adenopathy Extremities: No Edema, No Clubbing, Cyanosis Skin: No Rash or Ulcers, No Nodules or Sclerosis Neurological: NL Muscle Strength and Tone Result Diagrams: 08/18/17 17:35 08/18/17 17:35 Assess/Plan/Problems-Billing Assessment: Recurrent falls, confusion likely due in some part to UTI in an 85 yo M with hx of HTN, HLD, GERD, CAD, chronic systolic CHF with EF 25%, PPM - Patient Problems (1) Chronic systolic CHF (congestive heart failure) Comment: euvolemic, Echo shows EF 25% mod , mod AI-similar to 2016 (2) Anticoagulant long-term use Comment: Patient currently on eiquis, seems that it was unclear why patient was on this during previous admission. He is not sure why. (3) Abnormal gait Comment: chronic with worsening, plan to place in [facility] (4) UTI (urinary tract infection) Comment: Ceftriaxone started (5) DVT prophylaxis Comment: eliquis Status and Disposition: inpatient
[2017-08-19] MEDS: Atorvastatin* 20 MG TAB PO SCH (20:30)
[2017-08-19] MEDS: Tamsulosin CAP* 0.4 MG PO SCH (20:30)
[2017-08-20] MEDS: cefTRIAXone(*) 1 GM in NS 0.9% 50 ML* 50 ML IVPB SCH (08:54)
[2017-08-20] MEDS: Senna TAB PO SCH ×2 (09:01→21:03)
[2017-08-20] MEDS: Apixaban* 5 MG TAB PO SCH ×2 (09:01→21:05)
[2017-08-20] MEDS: Carvedilol TAB* 3.125 MG PO SCH ×2 (09:01→21:01)
[2017-08-20] MEDS: Polyethylene Glycol 3350* 17 GM PACKET PO SCH (09:02)
--- NOTE | 2017-08-20 15:47 | PN ---
Subjective Date of Service: 08/20/17 Interval History: Unable to form a coherent c/o. Objective Active Medications: Acetaminophen (Tylenol Tab*) 975 mg PO Q8H PRN PRN Reason: PAIN - MILD TO MODERATE Apixaban (Eliquis*) 5 mg PO Q12HR [facility] Last Admin: 08/20/17 09:01 Dose: 5 mg Artificial Tears (Lacrilube Oint*) 1 applic BOTH EYES Q8HR PRN PRN Reason: DRY EYE Atorvastatin Calcium (Lipitor*) 20 mg PO BEDTIME [facility] Last Admin: 08/19/17 20:30 Dose: 20 mg Carvedilol (Coreg Tab*) 3.125 mg PO BID [facility] Last Admin: 08/20/17 09:01 Dose: 3.125 mg Cholecalciferol (Vitamin D Tab*) 2,000 units PO DAILY PRN PRN Reason: DIZZINESS Finasteride (Proscar Tab*) 5 mg PO DAILY PRN PRN Reason: BLOOD PRESSURE Ceftriaxone Sodium 1 gm/ (Dextrose) 50 mls @ 200 mls/hr IVPB 0900 [facility] Loperamide HCl (Imodium Cap*) 2 mg PO QID PRN PRN Reason: LOOSE STOOLS Polyethylene Glycol/Electrolytes (Miralax*) 17 gm PO DAILY [facility] Last Admin: 08/20/17 09:02 Dose: Not Given Senna (Senokot Tab*) 2 tab PO BID [facility] Last Admin: 08/20/17 09:01 Dose: 2 tab Tamsulosin HCl (Flomax Cap*) 0.4 mg PO BEDTIME [facility] Last Admin: 08/19/17 20:30 Dose: 0.4 mg Vital Signs - 8 hr 08/20/17 08:00 Respiratory 16 Rate Oxygen Devices in Use Now: None Appearance: Alert, partly up in bed. Sociable. Looks comfortable. Eyes: No Scleral Icterus Respiratory: Symmetrical Chest Expansion and Respiratory Effort, Clear to Auscultation, Clear to Percussion Cardiovascular: NL Sounds; No Murmurs; No JVD, RRR, No Edema, - Extremities: No Edema, No Clubbing, Cyanosis, - Skin: No Rash or Ulcers, No Nodules or Sclerosis, - Neurological: NL Sensation - He gave his age as 82 or 83. He can say his full name. Poor short-term memory. Result Diagrams: 08/18/17 17:35 08/18/17 17:35 Assess/Plan/Problems-Billing Assessment: Recurrent falls, confusion likely due in some part to UTI in an 85 yo M with hx of HTN, HLD, GERD, CAD, chronic systolic CHF with EF 25%, PPM - Patient Problems (1) Abnormal gait Current Visit: No Status: Acute Priority: Medium Code(s): R26.9 - UNSPECIFIED ABNORMALITIES OF GAIT AND MOBILITY SNOMED Code(s): 48467746 Comment: Pt refused PT 08/20/17. Plan is to place in [facility] (2) Anticoagulant long-term use Current Visit: No Status: Acute Code(s): Z79.01 - PINION SORTER (CURRENT) USE OF ANTICOAGULANTS SNOMED Code(s): 183249061 Comment: Patient currently on apixaban; it was unclear why patient was on this during previous admissions. He is not sure why. (3) CAD (coronary artery disease) Current Visit: No Status: Acute Code(s): I25.10 - ATHSCL HEART DISEASE OF [place] CORONARY ARTERY W/O ANG PCTRS SNOMED Code(s): 33796158 Comment: Continue statin, BB. (4) Chronic systolic CHF (congestive heart failure) Current Visit: No Status: Acute Code(s): I50.22 - CHRONIC SYSTOLIC ( CONGESTIVE) HEART FAILURE SNOMED Code(s): 583763651 Comment: euvolemic, Echo shows EF 25% mod , mod AI-similar to 2016. Continue BB. With low BP and hx falls, ACEI contraindicated. (5) Dementia Current Visit: Yes Status: Acute Code(s): F03.90 - UNSPECIFIED DEMENTIA WITHOUT BEHAVIORAL DISTURBANCE SNOMED Code(s): 46106111 Comment: Dx noted. Status and Disposition: inpatient
[2017-08-20] MEDS: LORazepam TAB(*) 1 MG PO SCH (21:01)
[2017-08-20] MEDS: Tamsulosin CAP* 0.4 MG PO SCH (21:01)
[2017-08-20] MEDS: Atorvastatin* 20 MG TAB PO SCH (21:01)
[2017-08-21] MEDS ORDERED: cefTRIAXone(*) 1 GM in D5W 50 ML BAG* 50 ML IVPB SCH (09:00)
[2017-08-21] MEDS ORDERED: cefTRIAXone(*) 1 GM in NS 0.9% 50 ML* 50 ML IVPB SCH (09:00)
[2017-08-21] MEDS: Senna TAB PO SCH ×2 (09:41→20:46)
[2017-08-21] MEDS: Polyethylene Glycol 3350* 17 GM PACKET PO SCH (09:41)
[2017-08-21] MEDS: Acetaminophen TAB* 325 MG PO PRN ×2 (09:52→22:32)
[2017-08-21] MEDS: LORazepam TAB(*) 1 MG PO SCH ×2 (09:53→20:45)
[2017-08-21] MEDS: Carvedilol TAB* 3.125 MG PO SCH ×2 (09:53→20:48)
[2017-08-21] MEDS: Apixaban* 5 MG TAB PO SCH ×2 (09:53→20:46)
[2017-08-21] MEDS ORDERED: cefTRIAXone(*) 1 GM in D5W 50 ML BAG* 50 ML IVPB ONE (10:00)
--- NOTE | 2017-08-21 15:18 | PN ---
Subjective Date of Service: 08/21/17 Interval History: No specifc c/o. Objective Active Medications: Acetaminophen (Tylenol Tab*) 975 mg PO Q8H PRN PRN Reason: PAIN - MILD TO MODERATE Last Admin: 08/21/17 09:52 Dose: 975 mg Apixaban (Eliquis*) 5 mg PO Q12HR [facility] Last Admin: 08/21/17 09:53 Dose: 5 mg Artificial Tears (Lacrilube Oint*) 1 applic BOTH EYES Q8HR PRN PRN Reason: DRY EYE Atorvastatin Calcium (Lipitor*) 20 mg PO BEDTIME [facility] Last Admin: 08/20/17 21:01 Dose: 20 mg Carvedilol (Coreg Tab*) 3.125 mg PO BID [facility] Last Admin: 08/21/17 09:53 Dose: 3.125 mg Cholecalciferol (Vitamin D Tab*) 2,000 units PO DAILY PRN PRN Reason: DIZZINESS Finasteride (Proscar Tab*) 5 mg PO DAILY PRN PRN Reason: BLOOD PRESSURE Ceftriaxone Sodium 1 gm/ (Sodium Chloride) 50 mls @ 200 mls/hr IVPB Q24H [facility] Loperamide HCl (Imodium Cap*) 2 mg PO QID PRN PRN Reason: LOOSE STOOLS Lorazepam (Ativan Tab(*)) 1 mg PO BID [facility] Last Admin: 08/21/17 09:53 Dose: 1 mg Polyethylene Glycol/Electrolytes (Miralax*) 17 gm PO DAILY [facility] Last Admin: 08/21/17 09:41 Dose: Not Given Senna (Senokot Tab*) 2 tab PO BID [facility] Last Admin: 08/21/17 09:41 Dose: Not Given Tamsulosin HCl (Flomax Cap*) 0.4 mg PO BEDTIME [facility] Last Admin: 08/20/17 21:01 Dose: 0.4 mg Vital Signs - 8 hr 08/21/17 08/21/17 08/21/17 07:21 08:09 09:53 Temperature 98.1 F Pulse Rate 75 Respiratory 20 16 24 Rate Blood Pressure 104/65 (mmHg) O2 Sat by Pulse 95 Oximetry 08/21/17 08/21/17 11:55 11:58 Temperature 99.4 F Pulse Rate 74 Respiratory 14 18 Rate Blood Pressure 90/50 (mmHg) O2 Sat by Pulse 96 Oximetry Oxygen Devices in Use Now: None Appearance: Alert, somewhat restless/agitated, can't focus on anything well. In bed. Eyes: No Scleral Icterus Neurological: NL Sensation - Disoriented. SCHWARZ. No tremor. Result Diagrams: 08/18/17 17:35 08/18/17 17:35 Assess/Plan/Problems-Billing Assessment: Recurrent falls, confusion likely due in some part to UTI in an 85 yo M with hx of HTN, HLD, GERD, CAD, chronic systolic CHF with EF 25%, PPM - Patient Problems (1) Abnormal gait Current Visit: No Status: Acute Priority: Medium Code(s): R26.9 - UNSPECIFIED ABNORMALITIES OF GAIT AND MOBILITY SNOMED Code(s): 49844495 Comment: Pt refused PT 08/20/17. Plan is to place in enhanced assisted living (2) Anticoagulant long-term use Current Visit: No Status: Acute Code(s): Z79.01 - SNF (CURRENT) USE OF ANTICOAGULANTS SNOMED Code(s): 009749611 Comment: Patient currently on apixaban; it was unclear why patient was on this during previous admissions. He is not sure why. (3) CAD (coronary artery disease) Current Visit: No Status: Acute Code(s): I25.10 - ATHSCL HEART DISEASE OF [place] CORONARY ARTERY W/O ANG PCTRS SNOMED Code(s): 65292174 Comment: Continue statin, BB. (4) Chronic systolic CHF (congestive heart failure) Current Visit: No Status: Acute Code(s): I50.22 - CHRONIC SYSTOLIC ( CONGESTIVE) HEART FAILURE SNOMED Code(s): 275781206 Comment: euvolemic, Echo shows EF 25% mod , mod AI-similar to 2016. Continue BB. With low BP and hx falls, ACEI contraindicated. (5) Dementia Current Visit: Yes Status: Acute Code(s): F03.90 - UNSPECIFIED DEMENTIA WITHOUT BEHAVIORAL DISTURBANCE SNOMED Code(s): 50645896 Comment: Dx noted. Status and Disposition: inpatient
[2017-08-21] MEDS: Tamsulosin CAP* 0.4 MG PO SCH (20:45)
[2017-08-21] MEDS: Atorvastatin* 20 MG TAB PO SCH (20:45)
[2017-08-22] MEDS ORDERED: Haloperidol INJ IV/IM* 5 MG/ML AMP IV ONE (00:48)
[2017-08-22] MEDS: Polyethylene Glycol 3350* 17 GM PACKET PO SCH (09:51)
[2017-08-22] MEDS: Senna TAB PO SCH (09:51)
[2017-08-22] MEDS: Apixaban* 5 MG TAB PO SCH (09:53)
[2017-08-22] MEDS: LORazepam TAB(*) 1 MG PO SCH (09:53)
[2017-08-22] MEDS: Carvedilol TAB* 3.125 MG PO SCH (09:53)
[2017-08-22] MEDS ORDERED: cefTRIAXone* 1 GM in NS 0.9% 50 ML BAG IVPB SCH (10:00)
[2017-08-22 10:08] VITALS: BP 96/58
--- NOTE | 2017-08-22 11:06 | DS ---
DATE OF ADMISSION: 08/19/2017. DATE OF DISCHARGE: 08/22/2017. PRIMARY CARE PHYSICIAN: Dr. Bella Palomino. DISPOSITION ON DISCHARGE: To [facility]. PRIMARY DIAGNOSIS: Urinary tract infection, E. coli, pansensitive. 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 MEDICATIONS ON DISCHARGE: Unchanged from admission, except for the additional Ciprofloxacin b.i.d. for four additional days, include: 1. Loperamide 2 mg four times a day as needed for diarrhea. 2. Artificial Tears one drop both eyes every 8 hours as needed. 3. Acetaminophen 1,000 mg three times a day as needed. 4. Trazodone 200 mg twice daily. 5. Ativan 1 mg twice daily as needed. 6. Tramadol 50 mg three times a day as needed. 7. Atorvastatin 20 mg at bedtime. 8. Senna two tabs twice daily. 9. Nitroglycerin patch 0.2 mg per hour daily. 10. Eliquis 5 mg twice daily. 11. Tamsulosin 0.4 mg at bedtime. 12. Coreg 3.125 mg twice daily. 13. MiraLax 17 gm daily. 14. Finasteride 5 mg daily. 15. Cholecalciferol 2,000 units daily. 16. Vitamin B12 injection 1,000 mcg daily. 17. Ciprofloxacin 500 mg twice daily for 4 additional days. HISTORY OF PRESENT ILLNESS AND HOSPITAL COURSE: This is an 86-year-old man presenting from [place] who presented with decreased strength and inability to walk with additions falls from the day prior to presentation. On admission, he was found with a urinalysis consistent with a urinary tract infection with urine culture ultimately growing E. coli pansensitive to all antibiotics tested. He received Ceftriaxone for four days prior to discharged, transitioned to Ciprofloxacin for four additional days on discharge. He was evaluated by physical therapy during the course of his hospital stay. He was still noted to be weak and to benefit from a higher level of care. There are no other complications during the course of this hospital stay. AT FOLLOW-UP PLEASE: Evaluate for continued resolution of urinary tract infection. No reason to recheck urinalysis; however, if he develops fevers, chills, night sweats, or grossly malodorous urine, could consider rechecking. Greater than 30 minutes were spent on the discharge of this patient, greater than half was spent [id number] with the patient. [id number]/[facility] #: [id number] AUNG
== END 2017-08-22 12:35 | DRG 690 ==
LOC: ED 12:37 → INTOOBSV 21:01 → OBSVTOIN 21:01 → MED 21:01 → OBSVTOIN 08-19 15:30 → INTOOBSV 08-19 15:30 → MED 08-21 17:59
PROVIDERS: ADMIT Internal Medicine; ATTEND Internal Medicine
DX: N39.0 Urinary tract infection, site not specified (principal); B96.20 Unspecified Escherichia coli [E. coli] as the cause of diseases classified elsewhere; F03.90 Unspecified dementia, unspecified severity, without behavioral disturbance, psychotic disturbance, mood disturbance, and anxiety; E11.9 Type 2 diabetes mellitus without complications; I10 Essential (primary) hypertension; I25.10 Atherosclerotic heart disease of native coronary artery without angina pectoris; Z79.899 Other long term (current) drug therapy; Z95.0 Presence of cardiac pacemaker; K21.9 Gastro-esophageal reflux disease without esophagitis; C81.90 Hodgkin lymphoma, unspecified, unspecified site; Z87.891 Personal history of nicotine dependence; Z91.81 History of falling; I25.2 Old myocardial infarction
CPT/HCPCS: 36415; 70450; 71045; 80053; 81003; 81015; 83605; 83735; 84443; 84484; 85025; 87077; 87086; 87186; 87641; 93005; 93306; 99283; A9270-GY; G0378; G8978-GP-CK; G8979-GP-CI; J0696; J1630

== ENCOUNTER → 2018-06-02 16:01 | Emergency (ER) | payer MEDICARE ==
--- NOTE | 2018-06-02 16:36 | ED ---
Shortness of Breath - HPI Summary HPI Summary: The pt is an 87 y/o male presenting to [facility] c/o persistent SOB since 3 weeks ago. He notes productive cough, nasal congestion, dyspnea and difficulty ambulating but denies fever. The SOB is aggravated by exertion. He lives in [facility]. Dr. Cristian MD is his pharmacy clinical specialist. - History of Current Complaint Chief Complaint: EDShortnessOfBreath Time Seen by Provider: 06/02/18 16:09 Hx Obtained From: Patient Onset/Duration: Lasting Weeks - 3 weeks, Still Present Timing: Constant Dyspnea At: Exertion Alleviating Factors: Nothing Associated Signs & Symptoms: Cough (Productive), Nasal Congestion - Allergy/Home Medications Allergies/Adverse Reactions: Allergies Allergy/AdvReac Type Severity Reaction Status Date / Time No Known Allergies Allergy Verified 06/02/18 16:10 Home Medications: Home Medications Acetaminophen [Tylenol Extra Strength] 1,000 mg PO Q8HR 06/02/18 [History Confirmed 06/02/18] Apixaban* [Eliquis*] 5 mg PO BID 06/02/18 [History Confirmed 06/02/18] Carvedilol TAB* [Coreg TAB*] 3.125 mg PO BID 06/02/18 [History Confirmed ] Fluticasone NASAL SPRAY 50MCG* [Flonase NASAL SPRAY 50MCG*] 1 spray BOTH NARES DAILY 06/02/18 [History Confirmed 06/02/18] Furosemide TAB* [Lasix TAB*] 20 mg PO DAILY 06/02/18 [History Confirmed 06/02/18 ] LORazepam TAB(*) [Ativan 0.5 MG TAB (*)] 0.5 mg PO DAILY PRN 06/02/18 [History Confirmed 06/02/18] LORazepam TAB(*) [Ativan 0.5 MG TAB (*)] 0.5 mg PO TID 06/02/18 [History Confirmed 06/02/18] Sulfamethox/Trimethoprim DS* [Bactrim DS 800/160 TAB*] 1 tab PO DAILY 06/02/18 [ History Confirmed 06/02/18] Temazepam CAP* [Restoril CAP*] 15 mg PO BEDTIME PRN 06/02/18 [History Confirmed 06/02/18] Zolpidem TAB* [Ambien TAB*] 5 mg PO BEDTIME PRN 06/02/18 [History Confirmed ] traZODone TAB* [Desyrel TAB*] 300 mg PO BEDTIME PRN 06/02/18 [History Confirmed 06/02/18] PMH/Surg Hx/FS Hx/Imm Hx Previously Healthy: No Endocrine/Hematology History: Reports: Hx Diabetes, Hx Anemia - receives B12 shots Cardiovascular History: Reports: Hx Congestive Heart Failure, Hx Coronary Artery Disease, Hx Hypercholesterolemia, Hx Hypertension, Hx Pacemaker/ICD, Other Cardiovascular Problems/Disorders - cardiomyopathy GI History: Reports: Hx Gastroesophageal Reflux Disease, Other GI Disorders - hernia repair History: Reports: Other Problems/Disorders - recent UTI Musculoskeletal History: Reports: Hx Back Problems - chronic back pain Sensory History: Reports: Hx Contacts or Glasses - not with the patient, Hx Hearing Problem - Pt appears to be hard of hearing Denies: Hx Hearing Aid Opthamlomology History: Reports: Hx Contacts or Glasses - not with the patient Psychiatric History: Reports: Hx Anxiety - Cancer History Cancer Type, Location and Year: Hodgkin's lymphoma - Surgical History Surgery Procedure, Year, and Place: Hernia repair, pacemaker Hx Anesthesia Reactions: No Infectious Disease History: No Infectious Disease History: Denies: Hx of Known/Suspected MRSA, Traveled Outside the in Last 30 Days - Family History Known Family History: Positive: Diabetes, Renal Disease - father, Other - Mother : [place] - Social History Occupation: Employed Part-time, Retired Lives: At [facility] [place] Alcohol Use: Rare Substance Use Type: Reports: None Substance Use Comment - Amount & Last Used: pt said he drank socially when he was younger Smoking Status (MU): Former Smoker Type: Cigarettes Review of Systems Negative: Fever ENT: Other - Positive: Nasal congestion Respiratory: Other - Positive: Dyspnea Positive: Shortness Of Breath, Cough - Productive Musculoskeletal: Other - Positive: Difficulty ambulating All Other Systems Reviewed And Are Negative: Yes Physical Exam - Summary Physical Exam Summary: Appearance: The patient is well-nourished in no acute distress and in no acute pain. Skin: The skin is warm and dry and skin color reflects adequate perfusion. HEENT: The head is normocephalic and atraumatic. The pupils are equal and reactive. The conjunctivae are clear and without drainage. Nares are patent and without drainage. Mouth reveals moist mucous membranes and the throat is without erythema and exudate. The external ears are intact. The ear canals are patent and without drainage. The tympanic membranes are intact. Neck: The neck is supple with full range of motion and non-tender. There are no carotid bruits. There is no neck vein distension. Respiratory: Chest is non-tender. Coarse upper airway sounds. Cardiovascular: Heart is regular rate and rhythm. There is no murmur or rub auscultated. There is no peripheral edema and pulses are symmetrical and equal. Abdomen: The abdomen is soft and non-tender. There are normal bowel sounds heard in all four quadrants and there is no organomegaly palpated. Musculoskeletal: There is no back tenderness noted. Extremities are non-tender with full range of motion. There is good capillary refill. There is no peripheral edema or calf tenderness elicited. Neurological: Patient is alert and oriented to person, place and time. The patient has symmetrical motor strength in all four extremities. Cranial nerves are grossly intact. Deep tendon reflexes are symmetrical and equal in all four extremities. Psychiatric: The patient has an appropriate affect and does not exhibit any anxiety or depression. Triage Information Reviewed: Yes Vital Signs On Initial Exam: Initial Vitals Temp Pulse Resp BP Pulse Ox 97.8 F 74 18 109/64 91 06/02/18 16:06 06/02/18 16:06 06/02/18 16:06 06/02/18 16:06 06/02/18 16:06 Vital Signs Reviewed: Yes Diagnostics - Vital Signs Vital Signs Temp Pulse Resp BP Pulse Ox 06/02/18 16:06 97.8 F 74 18 109/64 91 - Laboratory Result Diagrams: 06/02/18 16:54 06/02/18 16:54 Lab Statement: Any lab studies that have been ordered have been reviewed, and results considered in the medical decision making process. - Radiology CXR Radiology Interpretation Completed By: Radiologist - ESSION: #. Cardiomegaly with mild pulmonary vascular congestion and interstitial edema. Negative for associated pleural effusions. The ED physician reviewed this radiology report. - EKG 17:11 Cardiac Rate: NL - 90 bpm Summary of EKG Findings: Ventricular paced rhythm Course/Dx - Course Course Of Treatment: Mr. Hester presented to the emergency department with a couple weeks of a productive cough and increasing shortness of breath. His respiratory status was marginal here especially given his age. Chest x-ray showed some mild CHF as did his labs which were consistent with his history. I think this is more likely infectious exacerbating some COPD. He is not willing to stay in the hospital. He has a MOLST form indicating he is a DNR but not a DNI. I will respect his wishes, although his pulse and respiratory rate increased some when we ambulated him his pulse ox did not drop. I'm going to give him antibiotic and a short steroid burst and recommended close follow-up. - Diagnoses Provider Diagnoses: Bronchitis Discharge - Sign-Out/Discharge Documenting (check all that apply): Patient Departure - DC - Discharge Plan Condition: Improved Disposition: HOME Prescriptions: Clarithromycin TAB* [Biaxin TAB*] 500 mg PO BID #20 tab methylPREDNISolone [Medrol Dosepak 4 MG*] 4 mg PO .SEE TOO INSTRUCTION #1 tab Patient Education Materials: Acute Bronchitis (ED) Referrals: Stuart Umana MD [Primary Care Provider] - Additional Instructions: Follow up with your PCP this week Return to ED for any new or worsening symptoms - Billing Disposition and Condition Condition: IMPROVED Disposition: Home - Attestation Statements Document Initiated by Scribe: Yes Documenting Scribe: Linda Friedman Provider For Whom Higinio is Documenting (Include Credential): Dr. Carlin Barr MD Scribe Attestation: Linda Medina scribed for Dr. Carlin Barr MD on 06/02/18 at 2013. Scribe Documentation Reviewed: Yes Provider Attestation: The documentation as recorded by the [email or web address] accurately reflects the service I personally performed and the decisions made by me, Dr. Carlin Barr MD
--- OUTSIDE RECORDS SUMMARY | 2018-06-02 17:00 | XMS REPORT | Continuity of Care Document ---
:1930 External Reference #:[id number] Author Name Marc Gray M.D. Address [address] [place] [address] Care Team Providers Name Role Phone Stuart Umana M.D. Primary Care Physician Unavailable Payers Type Date Identification Numbers Payment Provider Subscriber Policy Number: [id number] [employer] Harrison Hester PayID: [id number] [facility] [id number] [place] [address] Advance Directives Description No Information Available Problems Date Description Provider Status Onset: Essential hypertension Active Onset: Hypercholesterolemia Active Onset: Hodgkin's disease (clinical) Active Note: 08/2001 Onset: Muscle weakness Active Onset: Type 2 diabetes mellitus Active Onset: Acid reflux Active Onset: Vitamin D deficiency Active Onset: Coronary atherosclerosis Active Onset: Anxiety Active Onset: 01/07/2017 Epiretinal membrane Marc Gray M.D. Active Onset: 01/07/2017 Other secondary cataract, left eye Marc Gray M.D. Active Onset: 01/27/2017 Presence of intraocular lens Marc Gray M.D. Active Onset: Benign prostatic hypertrophy without Active outflow obstruction Onset: Bilateral hearing loss Active Family History Date Family Member(s) Problem(s) Comments Father No Current Problems Mother Cataract Social History Type Date Description Comments Sex Unknown Marital Status Single Occupation [employer] Work Status Retired ETOH Use Occasionally consumes alcohol Tobacco Use Start: Unknown End: Patient is a former smoker 1953 Unknown Recreational Drug Use Denies Drug Use Smoking Status Reviewed: 05/05/18 Patient is a former smoker 1953 Allergies, Adverse Reactions, Alerts Date Description Reaction Status Severity Comments 01/07/2017 Penicillin Active 01/07/2017 Bactrim Active 12/31/2016 NKDA Inactive Medications Medication Date Status Form Strength Qnty SIG Indications Ordering Provider Acetaminophen 00// Active Tablets 500mg Unknown 0000 Glycolax 00/ Active Powder 3350NF Unknown 0000 Nitroglycerin / Active Patches 24HR 0.1mg/HR Unknown 0000 Senna Plus 00/ Active Tablets 8.6-50mg Unknown 0000 Tamsulosin HCL 00/ Active Capsules 0.4mg hs Unknown 0000 Trazodone HCL / Active Tablets 100mg 1 tab Unknown 0000 po hs Vitamin D / Active Capsules [id number] 1 tab Unknown (Ergocalciferol) 0000 po daily Tramadol HCL / Active Tablets 50mg Unknown 0000 Cyanocobalamin 00/ Active Solution 1000mcg/ML Unknown 0000 Vitamin D3 00/ Active Capsules 2000Unit Unknown 0000 Finasteride 00// Active Tablets 5mg Unknown 0000 Furosemide 00/00/ Active Tablets 20mg Unknown 0000 Fluconazole 00/00/ Active Tablets 100mg Unknown 0000 Milk Of Magnesia 00/ Active Suspension 2400mg/10M Unknown Concentrate 0000 L Carvedilol / Active Tablets 6.25mg Unknown 0000 Eliquis 00/00/ Active Tablets 5mg Unknown 0000 Atorvastatin 00// Active Tablets 20mg Unknown Calcium 0000 Immunizations Description No Information Available Vital Signs Date Vital Result Comment 01/27/2017 1:59pm BP Systolic 118 mmHg BP Diastolic 72 mmHg Heart Rate 82 /min Respiratory Rate 18 /min Results Description No Information Available Procedures Date Code Description Status 01/27/2017 32509 Remove Secondary Cataract, Laser (Yag) Completed 01/07/2017 13119 Scanning Computerized Opthalmic Diagnostic Posterior Seg Completed Retina 01/07/2017 79899 New Patient Comprehensive Exam Completed 12/21/2013 11424 Fundus Photography With Interpretation And Report Completed 12/21/2013 93947 Est Patient Comprehensive Exam Completed 11/23/2012 42929 Scanning Computerized Opthalmic Diagnostic Posterior Seg Completed Retina 11/23/2012 39689 Est Patient Comprehensive Exam Completed 11/21/2011 49903 Scanning Computerized Opthalmic Diagnostic Posterior Seg Completed Retina 11/21/2011 63755 Est Patient Comprehensive Exam Completed 11/15/2010 66610 Remove Secondary Cataract, Laser (Yag) Completed 07/17/2010 39829 Scanning Laser W/Interp And Report Completed 07/17/2010 46328 Est Patient Comprehensive Exam Completed 06/01/2009 95522 Est Patient Comprehensive Exam Completed 03/08/2008 23207 Est Patient Comprehensive Exam Completed 03/08/2008 45628 Determination Of Refractive State Completed 03/30/2007 02029 Determination Of Refractive State Completed 03/30/2007 97861 New Patient Comprehensive Exam Completed 03/25/2005 73011 Determination Of Refractive State Completed 03/25/2005 39607 Est Patient Comprehensive Exam Completed 03/14/2004 20406 Extracapsular Cataract Extraction W/Intraocular Lens Completed 03/08/2004 57016 Ophthalmic Biometry Completed 03/07/2004 01816 Extracapsular Cataract Extraction W/Intraocular Lens Completed 02/27/2004 21268 Unlisted Procedure, Ophthalmological Completed 02/27/2004 57600 Ophthalmic Biometry Completed 12/30/2003 60091 Determination Of Refractive State Completed 12/30/2003 56625 Est Patient Comprehensive Exam Completed Encounters Description No Information Available Plan of Treatment 05/05/2018 - Marc Gray M.D.E11.9 Type 2 diabetes mellitus without complicationsComments:Smoking can increase the risk of developing or worsening any eye related disease, as well as affect your overall health. If you are a smoker, we strongly recommend that you quit.If you are not a smoker, we strongly recommend that you do not start. You have diabetes. I do not detect any changes in both of your retinas from diabetes at this time. Proper control of your diabetes is important for the health of your eyes. Changes in your eyes from diabetes can happen without symptoms, so it is important that you have your eyes examined. Dr. Gray has sent a report to your primary care doctor , lettingthem know there is no damage from the Diabetes in your eyes.Follow up: 1 Year Follow Up You can expect to have your eyes dilated at your next visit. If Dr. Gray orders any additional testing, it may require extra time. We recommend that you bring sunglasses, as dilationdrops often make you light sensitive until they wear off. We always recommend you bring someone to drive you home if you are uncomfortable driving with your eyes dilated. If you have any questions before your next visit, feel free to call our office at .H3.137 Puckering of macula, left eyeComments:A Macular Pucker is a wrinkling of the retina tissue. It can cause distortion in your vision. Pleasecall the office if you notice a decrease or new distortion in your vision before then.Z96.1 Presence of intraocular lensComments:The artificial lens implants in both eyes appear to be stable at this time.
[2018-06-02 17:03] LABS: ABS Basophils 0.1 10^3/ul (0-0.2); ABS Eosinophils 0.2 10^3/ul (0-0.6); ABS Lymphocytes 1.6 10^3/ul (1.0-4.8); ABS Neutrophils 4.6 10^3/ul (1.5-7.7); ABS Nucleated RBC 0 10^3/ul; Eosinophil % 2.8 % (0-6); Hematocrit 44 % (42-52); Hemoglobin 14.9 g/dl (14.0-18.0); Lymphocyte % 21.7 % (25-47); Mean Corpuscular HGB Conc 34 g/dl (31-36); Mean Corpuscular Hemoglobin 34 pg (27-31); Mean Corpuscular Volume 99 fL (80-94); Mean Platelet Volume 7.5 um3 (7.4-10.4); Nucleated Red Blood Cells % 0; Platelet Count 234 10^3/ul (150-450); Red Blood Count 4.45 10^6/ul (4.00-5.40); Red Cell Distribution Width 16 % (10.5-15); White Blood Count 7.5 10^3/ul (3.5-10.8)
[2018-06-02 17:19] LABS: INR 1.35 (0.77-1.02)
[2018-06-02 17:21] LABS: EGFR Non-African American 59.7 (>60)
--- NOTE | 2018-06-02 17:29 | RAD ---
INDICATION: Shortness of breath. History of cardiomyopathy and congestive heart failure. COMPARISON: August 18, 2017 TECHNIQUE: Sitting AP and lateral chest views. REPORT: RIGHT atrial and RIGHT ventricular level pacemaker leads. Cardiomegaly without gross change. Ill-defined central pulmonary vasculature and mild diffuse prominence of the interstitial markings. Grossly clear pleural spaces. Negative for pneumothorax. Moderate anterior compression fracture at the approximate T8 vertebral body appears chronic. IMPRESSION: #. Cardiomegaly with mild pulmonary vascular congestion and interstitial edema. Negative for associated pleural effusions.
[2018-06-02 18:59] VITALS: BP 153/84
== END | disposition home or self-care (01) ==
LOC: ED 16:01
DX: J40 Bronchitis, not specified as acute or chronic (principal); F41.9 Anxiety disorder, unspecified; I11.0 Hypertensive heart disease with heart failure; I50.9 Heart failure, unspecified; Z79.01 Long term (current) use of anticoagulants; Z95.810 Presence of automatic (implantable) cardiac defibrillator; Z87.891 Personal history of nicotine dependence
CPT/HCPCS: 36415; 71046; 80053; 83605; 83880; 84484; 85025; 85610; 86140; 87040; 93005; 99283

== ENCOUNTER 2018-09-29 19:20 | Emergency (ER) | payer MEDICARE ==
[2018-09-29] MEDS ORDERED: Phytonadione Oral Solution* 5 MG/25 ML UDC PO ONE (19:29)
--- NOTE | 2018-09-29 19:38 | ED ---
Medical Screening - HPI Summary HPI Summary: The patient is an 87 y/o M presenting to [facility] brought in by ambulance from [place], with a chief complaint of elevated INR starting today. He was advised to come here by his primary provider, although he denies hematochezia, hematuria , and bruising. He does not take any blood thinners but has hx of anemia. - History of Current Complaint Stated Complaint: ABNORMAL LABS Onset/Duration: Started Hours Ago - earlier today Severity: mild Associated Signs and Symptoms: Other - NEGATIVE: hematochezia, hematuria, bruising PMH/Surg Hx/FS Hx/Imm Hx Endocrine/Hematology History: Reports: Hx Diabetes, Hx Anemia - receives B12 shots Cardiovascular History: Reports: Hx Congestive Heart Failure, Hx Coronary Artery Disease, Hx Hypercholesterolemia, Hx Hypertension, Hx Pacemaker/ICD, Other Cardiovascular Problems/Disorders - cardiomyopathy GI History: Reports: Hx Gastroesophageal Reflux Disease, Other GI Disorders - hernia repair History: Reports: Other Problems/Disorders - recent UTI Musculoskeletal History: Reports: Hx Back Problems - chronic back pain Sensory History: Reports: Hx Contacts or Glasses - not with the patient, Hx Hearing Problem - Pt appears to be hard of hearing Denies: Hx Hearing Aid Opthamlomology History: Reports: Hx Contacts or Glasses - not with the patient Psychiatric History: Reports: Hx Anxiety - Cancer History Cancer Type, Location and Year: Hodgkin's lymphoma - Surgical History Surgery Procedure, Year, and Place: Hernia repair, pacemaker Hx Anesthesia Reactions: No Infectious Disease History: No Infectious Disease History: Denies: Hx of Known/Suspected MRSA, Traveled Outside the [place] in Last 30 Days - Family History Known Family History: Positive: Diabetes, Renal Disease - father, Other - Mother : [place] - Social History Alcohol Use: Rare Substance Use Type: Reports: None Substance Use Comment - Amount & Last Used: pt said he drank socially when he was younger Smoking Status (MU): Former Smoker Type: Cigarettes Review of Systems Positive: Other - NEGATIVE: hematochezia Negative: hematuria Negative: Bruising All Other Systems Reviewed And Are Negative: Yes Physical Exam - Summary Physical Exam Summary: Appearance: Well-appearing, Well-nourished, lying in bed comfortable Skin: Warm, dry, no obvious rash Eyes: sclera anicteric, no conjunctival pallor ENT: mucous membranes moist Neck: deferred Respiratory: No signs of respiratory distress Cardiovascular: Appears well perfused, pulses are nml Abdomen: deferred Musculoskeletal: Moving all 4 extremities without obvious discomfort Neurological: Awake and alert, mentation is normal, speech is fluent and appropriate Psychiatric: affect is normal, does not appear anxious or depressed Triage Information Reviewed: Yes Vital Signs On Initial Exam: Initial Vitals Pulse Pulse Ox 75 96 09/29/18 19:25 09/29/18 19:25 Vital Signs Reviewed: Yes Diagnostics - Vital Signs Vital Signs Temp Pulse Resp BP Pulse Ox 09/29/18 19:27 97.8 F 75 18 92/61 96 09/29/18 19:25 75 96 - Laboratory Lab Statement: Any lab studies that have been ordered have been reviewed, and results considered in the medical decision making process. Course/Dx - Course Course Of Treatment: The patient is an 87 y/o M presenting to [facility] brought in by ambulance from [place], with a chief complaint of elevated INR starting today. He was advised to come here by his primary provider, although he denies hematochezia, hematuria, and bruising. He does not take any blood thinners but has hx of anemia. Upon physical exam, there are no significant abnormalities present. In the ED course, the patient was given Vitamin K. He is diagnosed with elevated INR and will be discharged home with follow up to get INR rechecked. Patient agrees with this plan and understands the need for return to the ED for any new or worsening symptoms. He will return to [place]. - Diagnoses Provider Diagnoses: Elevated INR Discharge - Sign-Out/Discharge Documenting (check all that apply): Patient Departure - Patient will be discharged home. Patient Received Moderate/Deep Sedation with Procedure: No - Discharge Plan Condition: Good Disposition: HOME Patient Education Materials: Elevated INR (ED) Referrals: Stuart Umana MD [Primary Care Provider] - Additional Instructions: Check pt's INR tomorrow. As long as there is no sign of bleeding clinically, he does not need to come back to the ED. He was given 5 mg oral vitamin K here for supratherapeutic INR. If still high tomorrow >10 this can be repeated and followed serially. - Billing Disposition and Condition Condition: GOOD Disposition: Home - Attestation Statements Document Initiated by Scribe: Yes Documenting Scribe: Kayleigh Mata Provider For Whom Scribe is Documenting (Include Credential): Dr. Carlin Mcnally MD Scribe Attestation: I, Kayleigh Mata, scribed for Dr. Carlin Mcnally MD on 09/30/18 at 0459. Scribe Documentation Reviewed: Yes Provider Attestation: The documentation as recorded by the [email or web address] accurately reflects the service I personally performed and the decisions made by me, Dr. Carlin Mcnally MD Status of Scribe Document: Viewed
[2018-09-29 22:10] VITALS: BP 110/64
== END 2018-09-29 22:09 | disposition home or self-care (01) ==
LOC: ED 19:20
DX: R79.1 Abnormal coagulation profile (principal); D64.9 Anemia, unspecified; Z87.891 Personal history of nicotine dependence
CPT/HCPCS: 99283

== ENCOUNTER 2019-03-25 01:43 | Inpatient (IN) | payer MEDICARE ==
--- NOTE | 2019-03-25 02:11 | ED ---
Complex/Multi-Sys Presentation - HPI Summary HPI Summary: 88 year old M brought in by EMS from [place] to [facility] complains of shortness of breath and altered mental status since yesterday evening per [place] staff. The patient rates the pain 0/10 in severity. Symptoms aggravated by nothing. Symptoms alleviated by nothing. - History Of Current Complaint Chief Complaint: EDAltMentalStatus Time Seen by Provider: 03/25/19 02:04 Hx Obtained From: Other: - [place] staff Onset/Duration: Lasting Hours, Still Present Timing: Constant Severity Currently: None Aggravating Factor(s): Nothing Alleviating Factor(s): Nothing - Allergies/Home Medications Allergies/Adverse Reactions: Allergies Allergy/AdvReac Type Severity Reaction Status Date / Time No Known Allergies Allergy Verified 06/02/18 16:10 PMH/Surg Hx/FS Hx/Imm Hx Previously Healthy: No Endocrine/Hematology History: Reports: Hx Anticoagulant Therapy, Hx Diabetes, Hx Anemia - receives B12 shots Cardiovascular History: Reports: Hx Atrial Fibrillation, Hx Congestive Heart Failure, Hx Coronary Artery Disease, Hx Hypercholesterolemia, Hx Hypertension, Hx Pacemaker/ICD, Other Cardiovascular Problems/Disorders - cardiomyopathy GI History: Reports: Hx Gastroesophageal Reflux Disease, Hx Hiatal Hernia, Other GI Disorders - hernia repair History: Reports: Hx Benign Prostatic Hyperplasia, Other Problems/ Disorders - recent UTI Denies: Hx Renal Disease Musculoskeletal History: Reports: Hx Back Problems - chronic back pain Sensory History: Reports: Hx Contacts or Glasses - not with the patient, Hx Hearing Problem - Pt appears to be hard of hearing Denies: Hx Hearing Aid Opthamlomology History: Reports: Hx Contacts or Glasses - not with the patient Neurological History: Reports: Hx Dementia Psychiatric History: Reports: Hx Anxiety - Cancer History Cancer Type, Location and Year: Hodgkin's lymphoma - Surgical History Surgery Procedure, Year, and Place: Hernia repair, pacemaker Hx Anesthesia Reactions: No Infectious Disease History: Unable to Obtain/Confirm Infectious Disease History: Denies: Hx Clostridium Difficile, Hx Hepatitis, Hx of Known/Suspected MRSA, Hx Shingles, Hx Tuberculosis, Hx Known/Suspected VRE, Hx Known/Suspected VRSA, Traveled Outside the [place] in Last 30 Days - Family History Known Family History: Positive: Diabetes, Renal Disease - father, Other - Mother : [place] - Social History Alcohol Use: Rare Alcohol Amount: pt said he drank socially when he was younger Hx Substance Use: No Substance Use Type: Reports: None Hx Tobacco Use: Yes Smoking Status (MU): Former Smoker Type: Cigarettes Review of Systems Positive: Shortness Of Breath Neurological: Other - altered mental status All Other Systems Reviewed And Are Negative: Yes Physical Exam - Summary Physical Exam Summary: VITAL SIGNS: Reviewed. GENERAL: Patient is a well-developed and nourished MALE who is lying comfortable in the stretcher. Patient is mild respiratory distress. He is tachypneic. HEAD AND FACE: No signs of trauma. No ecchymosis, hematomas or skull depressions. No sinus tenderness. EYES: PERRLA, EOMI x 2, No injected conjunctiva, no nystagmus. EARS: Hearing grossly intact. Ear canals and tympanic membranes are within normal limits. MOUTH: Oropharynx within normal limits. NECK: Supple, trachea is midline, no adenopathy, no JVD, no carotid bruit, no c- spine tenderness, neck with full ROM CHEST: Symmetric, no tenderness at palpation LUNGS: Decreased breath sounds bilaterally CVS: Regular rate and rhythm, S1 and S2 present, no murmurs or gallops appreciated. ABDOMEN: Distended EXTREMITIES: FROM in all major joints, no edema, no cyanosis or clubbing. NEURO: Alert and oriented to his name. Patient has left sided facial droop which is old. SKIN: Dry and warm Triage Information Reviewed: Yes Vital Signs On Initial Exam: Initial Vitals Temp Pulse Resp BP Pulse Ox 97.2 F 75 28 97/70 97 03/25/19 02:03 03/25/19 02:03 03/25/19 02:03 03/25/19 02:03 03/25/19 02:03 Vital Signs Reviewed: Yes Diagnostics - Vital Signs Vital Signs Temp Pulse Resp BP Pulse Ox 03/25/19 02:03 97.2 F 75 28 97/70 97 - Laboratory Result Diagrams: 03/25/19 04:55 03/25/19 04:55 Lab Statement: Any lab studies that have been ordered have been reviewed, and results considered in the medical decision making process. - Radiology CXR Radiology Interpretation Completed By: ED Physician Summary of Radiographic Findings: Cardiomegaly, decreased volume, Mild interstitial infiltrate consistent with CHF. Pending offical report. - EKG 0336 Cardiac Rate: NL - 92 BPM Summary of EKG Findings: 100% paced Complex Multi-Symp Course/Dx Course Of Treatment: 88 year old M brought in by EMS from [place] to [facility] complains of shortness of breath and altered mental status since yesterday evening per [place] staff. Physical exam findings: He is in mild respiratory distress. He is tachypneic. His abdomen is distended. He has decreased breath sounds bilaterally. He is alert and oriented to his name. Patient has left sided facial droop which is old. EKG is 100% paced. CXR reveals cardiomegaly, decreased volume, Mild interstitial infiltrate consistent with CHF. Blood work with no significant abnormalities except for RBC 3.74, Hgb 12.2, Hct 36, MCV 96 , MCH 33, RDW 17, absolute monos 1.2, INR 3.87, APTT 45.1, glucose 110, B- natriuretic peptie 892, and total protein 5.7. Urinalysis with no significant abnormalities. In the ED course, the patient was given trazadone [address] PO[address] Spoke with Dr. Joseph, hospitalist, who agrees to admit patient. The patient will be admitted to the hospitalist. - Diagnoses Provider Diagnoses: CHF (congestive heart failure) - Physician Notifications Discussed Care Of Patient With: Raffi Joseph Time Discussed With Above Provider: 05:53 Instructed by Provider To: Other - Dr. Joseph, hospitalist, agrees to admit patient Discharge ED - Sign-Out/Discharge Documenting (check all that apply): Patient Departure - Admit Patient Received Moderate/Deep Sedation with Procedure: No - Discharge Plan Condition: Stable Disposition: ADMITTED TO [facility] Referrals: Stuart Umana MD [Primary Care Provider] - - Attestation Statements Document Initiated by Scribe: Yes Documenting Scribe: Yue Pandya Provider For Whom Serjioibe is Documenting (Include Credential): Ludwig Reyna MD Scribe Attestation: Yue Medina, serjioibed for Ludwig Reyna MD on 03/25/19 at 0553. Status of Scribe Document: Ready
[2019-03-25 03:17] LABS: Urine Appearance Cloudy; Urine Bilirubin Negative (Negative); Urine Blood Negative (Negative); Urine Color Amber; Urine Glucose Negative (Negative); Urine Ketones Negative (Negative); Urine Nitrite Negative (Negative); Urine Protein Negative (Negative); Urine Specific Gravity 1.026 (1.010-1.030); Urine Urobilinogen Negative (Negative)
[2019-03-25] MEDS ORDERED: traZODone TAB* 100 MG PO ONE (03:46)
[2019-03-25] MEDS ORDERED: traZODone TAB* 50 MG TAB PO ONE (04:00)
[2019-03-25 05:09] LABS: ABS Eosinophils 0.2 10^3/ul (0-0.6); ABS Lymphocytes 1.4 10^3/ul (1.0-4.8); ABS Monocytes 1.2 10^3/ul (0-0.8); Eosinophil % 3.6 %; Hematocrit 36 % (42-52); Hemoglobin 12.2 g/dL (14.0-18.0); Lymphocyte % 20.6 %; Mean Corpuscular HGB Conc 34 g/dL (31-36); Mean Corpuscular Hemoglobin 33 pg (27-31); Mean Corpuscular Volume 96 fL (80-94); Platelet Count 202 10^3/uL (150-450); Red Blood Count 3.74 10^6 /uL (4.18-5.48); Red Cell Distribution Width 17 % (10-15); White Blood Count 6.9 10^3/uL (3.5-10.8)
[2019-03-25 05:12] LABS: Activated Partial Thrombo Time 45.1 seconds (26.0-38.0); INR 3.87 (0.82-1.09)
[2019-03-25 05:24] LABS: Albumin 3.4 g/dL (3.2-5.2); Albumin/Globulin Ratio 1.5 (1-3); BUN/Creatinine Ratio 18.1 (8-20); Calcium 8.8 mg/dL (8.6-10.3); EGFR African American 80.8 (>60); EGFR Non-African American 66.8 (>60); Globulin 2.3 g/dL (2-4); Potassium 3.8 mmol/L (3.5-5.0); Total Bilirubin 0.6 mg/dL (0.2-1.0); Total Protein 5.7 g/dL (6.4-8.9)
[2019-03-25 05:25] LABS: Troponin I 0.03 ng/mL (<0.04)
[2019-03-25] MEDS ORDERED: traMADol TAB* 50 MG PO PRN (07:58)
[2019-03-25] MEDS ORDERED: guaiFENesin LIQ* 100 MG/5 ML UDC PO PRN (07:58)
[2019-03-25] MEDS ORDERED: Temazepam CAP* 15 MG PO PRN (07:58)
[2019-03-25] MEDS ORDERED: Loperamide CAP* 2 MG PO PRN (07:58)
[2019-03-25] MEDS ORDERED: Artificial Tear OPHTH.OINT* 3.5 GM BOTH EYES PRN (07:58)
[2019-03-25] MEDS ORDERED: Cyanocobalamin INJ * 1,000 MCG/ML VIAL 1 ML VIAL IM SCH (08:00)
[2019-03-25] MEDS ORDERED: Furosemide TAB* 20 MG PO SCH (09:00)
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
[2019-03-25] MEDS ORDERED: Albuterol/Ipratropium NEB.SOL* Albuterol 2.5 MG/Ipratropium 0.5 MG 3 ML INH PRN (10:34)
[2019-03-25] MEDS: Finasteride TAB* 5 MG PO SCH (10:38)
[2019-03-25] MEDS: Senna TAB 8.6 mg* TAB PO SCH ×2 (10:38→21:16)
[2019-03-25] MEDS: Sulfamethox/Trimethoprim DS 800/160* TAB PO SCH (10:38)
[2019-03-25] MEDS: Famotidine TAB* 20 MG PO SCH ×2 (10:38→21:16)
[2019-03-25] MEDS: LORazepam TAB(*) 0.5 MG PO PRN (10:38)
[2019-03-25] MEDS: Tamsulosin CAP* 0.4 MG PO SCH (10:39)
[2019-03-25] MEDS: Fluticasone NASAL SPRAY 50MCG* 16 gm SPRAY BTL BOTH NARES SCH (10:39)
[2019-03-25] MEDS: Aspirin 81 mg CHEW TAB* 81 MG TAB.CHEW PO SCH (10:40)
[2019-03-25] MEDS: Carvedilol TAB* 3.125 MG PO SCH ×2 (10:40→21:13)
[2019-03-25] MEDS ORDERED: Digoxin IV* 0.5 MG/2 ML AMP (0.25 MG/ML) IV SLOW PU ONE (20:00)
[2019-03-25] MEDS: Atorvastatin* 20 MG TAB PO SCH (21:14)
[2019-03-25] MEDS: Mirtazapine TAB* 15 MG PO SCH (21:16)
[2019-03-25] MEDS: traZODone TAB* 100 MG PO SCH (21:16)
[2019-03-26] MEDS ORDERED: Furosemide TAB* 20 MG PO SCH (07:35)
[2019-03-26 07:54] LABS: INR 3.79 (0.82-1.09)
[2019-03-26] MEDS: Famotidine TAB* 20 MG PO SCH ×2 (08:50→21:00)
[2019-03-26] MEDS: Tamsulosin CAP* 0.4 MG PO SCH (08:50)
[2019-03-26] MEDS: Finasteride TAB* 5 MG PO SCH (08:50)
[2019-03-26] MEDS: Aspirin 81 mg CHEW TAB* 81 MG TAB.CHEW PO SCH (08:50)
[2019-03-26] MEDS: Senna TAB 8.6 mg* TAB PO SCH ×2 (08:50→20:59)
[2019-03-26] MEDS: Sulfamethox/Trimethoprim DS 800/160* TAB PO SCH (08:50)
[2019-03-26] MEDS: Carvedilol TAB* 3.125 MG PO SCH ×2 (08:51→21:04)
[2019-03-26] MEDS: Fluticasone NASAL SPRAY 50MCG* 16 gm SPRAY BTL BOTH NARES SCH (10:35)
--- NOTE | 2019-03-26 16:25 | PN ---
Subjective Date of Service: 03/26/19 Interval History: HOSPITALIST PROGRESS NOTE Patient seen and examined at bedside. Care reviewed and d/w Norma Balderrama RN. He offers no complaints. Was upset because I went in as the aide was coming out and we "don't leave him alone!" Did not require medications for agitation overnight. Family History: Unchanged from Admission Social History: Unchanged from Admission Past Medical History: Unchanged from Admission Objective Active Medications: Acetaminophen (Tylenol Tab*) 650 mg PO Q4H PRN PRN Reason: PAIN-MODERATE/TEMP >/= 100.4 Albuterol/Ipratropium (Duoneb (Albuterol 2.5 Mg/Ipratropium 0.5 Mg)) 1 neb INH Q4H PRN PRN Reason: SOB/WHEEZING Artificial Tears (Lacrilube Oint*) 1 applic BOTH EYES Q8HR PRN PRN Reason: DRY EYE Aspirin (Aspirin 81 Mg Chew Tab*) 81 mg PO DAILY [facility] Last Admin: 03/26/19 08:50 Dose: 81 mg Atorvastatin Calcium (Lipitor*) 20 mg PO BEDTIME [facility] Last Admin: 03/25/19 21:14 Dose: Not Given Carvedilol (Coreg Tab*) 3.125 mg PO BID [facility] Last Admin: 03/26/19 08:51 Dose: Not Given Cyanocobalamin (Vitamin B12 Inj *) 1,000 mcg IM MONTHLY [facility] Famotidine (Pepcid Tab*) 20 mg PO BID [facility] Last Admin: 03/26/19 08:50 Dose: 20 mg Finasteride (Proscar Tab*) 5 mg PO DAILY [facility] Last Admin: 03/26/19 08:50 Dose: 5 mg Fluticasone Propionate (Flonase Nasal [place] 50mcg*) 2 spray BOTH NARES DAILY [facility] Last Admin: 03/26/19 10:35 Dose: Not Given Furosemide (Lasix Tab*) 20 mg PO DAILY [facility] Last Admin: 03/26/19 08:50 Dose: Not Given Guaifenesin (Robitussin*) 5 ml PO Q4HR PRN PRN Reason: CONSTIPATION Loperamide HCl (Imodium Cap*) 2 mg PO QID PRN PRN Reason: LOOSE STOOLS Lorazepam (Ativan Tab(*)) 0.5 mg PO TID PRN PRN Reason: ANXIETY Last Admin: 03/25/19 10:38 Dose: 0.5 mg Mirtazapine (Remeron Tab*) 7.5 mg PO BEDTIME [facility] Last Admin: 03/25/19 21:16 Dose: Not Given Polyethylene Glycol/Electrolytes (Miralax*) 17 gm PO DAILY PRN PRN Reason: CONSTIPATION Senna (Senokot 8.6 Mg Tab*) 1 tab PO BID [facility] Last Admin: 03/26/19 08:50 Dose: 1 tab Tamsulosin HCl (Flomax Cap*) 0.4 mg PO DAILY [facility] Last Admin: 03/26/19 08:50 Dose: 0.4 mg Temazepam (Restoril Cap*) 15 mg PO BEDTIME PRN PRN Reason: SLEEP Tramadol HCl (Ultram*) 50 mg PO Q6HR PRN PRN Reason: PAIN - MODERATE Trazodone HCl (Desyrel Tab*) 200 mg PO BEDTIME [facility] Last Admin: 03/25/19 21:16 Dose: Not Given Trimethoprim/Sulfamethoxazole (Bactrim Ds 800/160 Tab*) 1 tab PO DAILY [facility] Last Admin: 03/26/19 08:50 Dose: 1 tab Vital Signs - 8 hr 03/26/19 03/26/19 11:15 13:27 Temperature 97.1 F Pulse Rate 75 90 Respiratory 16 16 Rate Blood Pressure 96/56 (mmHg) O2 Sat by Pulse 93 Oximetry Oxygen Devices in Use Now: Nasal Cannula Appearance: Elderly gentleman lying in bed in NAD. Eyes: No Scleral Icterus Ears/Nose/Mouth/Throat: Mucous Membranes Moist Neck: Trachea Midline Respiratory: Symmetrical Chest Expansion and Respiratory Effort, - - BS+ bilaterally Cardiovascular: RRR - Normal S1 and S2 Abdominal: NL Sounds; No Tenderness; No Distention Neurological: - - AAOx2 (self and place), SCHWARZ Result Diagrams: 03/25/19 04:55 03/25/19 04:55 Assess/Plan/Problems-Billing Assessment: Mr Hester is an 88yo M with PMH of type 2 DM, dementia, GERD, HTN, CAD, Hodgkin' s lymphoma, s/p pacemaker, systolic CHF EF 20-25%, recent admission for ischemic stroke who was sent to ED due to hypoxia and agitation. - Patient Problems (1) Dementia Comment: - Patient with known h/o dementia, with periods of agitation and aggressivity. - Continue Mirtazapine, Lorazepam PRN, Trazodone. - Supportive care. (2) Hypoxia Comment: - On his prior admission, it was felt his hypoxia was secondary to fluid overload. He appears to be euvolemic at this time, but still requires 2-3 liters. (3) Chronic systolic CHF (congestive heart failure) Comment: - Stable. - EF low at 20-25%. Continue coreg, lasix as BP allows. (4) Atrial fibrillation Comment: - Continue Coreg. - Warfarin on hold as INR>3.0. (5) DVT prophylaxis Comment: - Warfarin. (6) DNR (do not resuscitate)
[2019-03-26] MEDS: traZODone TAB* 100 MG PO SCH (21:00)
[2019-03-26] MEDS: Mirtazapine TAB* 15 MG PO SCH (21:01)
[2019-03-26] MEDS: Atorvastatin* 20 MG TAB PO SCH (21:03)
[2019-03-27 05:55] LABS: INR 2.88 (0.82-1.09)
[2019-03-27] MEDS: Sulfamethox/Trimethoprim DS 800/160* TAB PO SCH (09:44)
[2019-03-27] MEDS: Famotidine TAB* 20 MG PO SCH ×2 (09:44→22:06)
[2019-03-27] MEDS: Aspirin 81 mg CHEW TAB* 81 MG TAB.CHEW PO SCH (09:44)
[2019-03-27] MEDS: Fluticasone NASAL SPRAY 50MCG* 16 gm SPRAY BTL BOTH NARES SCH (09:45)
[2019-03-27] MEDS: Finasteride TAB* 5 MG PO SCH (09:45)
[2019-03-27] MEDS: Carvedilol TAB* 3.125 MG PO SCH ×2 (09:45→21:46)
[2019-03-27] MEDS: Senna TAB 8.6 mg* TAB PO SCH ×2 (09:45→22:03)
[2019-03-27] MEDS: Tamsulosin CAP* 0.4 MG PO SCH (09:45)
[2019-03-27] MEDS: Warfarin TAB(*) 1 MG PO SCH (17:14)
[2019-03-27] MEDS: Atorvastatin* 20 MG TAB PO SCH (22:02)
[2019-03-27] MEDS: traZODone TAB* 100 MG PO SCH (22:02)
[2019-03-27] MEDS: Mirtazapine TAB* 15 MG PO SCH (22:03)
[2019-03-28 06:46] LABS: INR 2.23 (0.82-1.09)
[2019-03-28] MEDS: Aspirin 81 mg CHEW TAB* 81 MG TAB.CHEW PO SCH (08:09)
[2019-03-28] MEDS: Senna TAB 8.6 mg* TAB PO SCH ×2 (08:09→20:43)
[2019-03-28] MEDS: Finasteride TAB* 5 MG PO SCH (08:09)
[2019-03-28] MEDS: Sulfamethox/Trimethoprim DS 800/160* TAB PO SCH (08:09)
[2019-03-28] MEDS: Famotidine TAB* 20 MG PO SCH ×2 (08:09→20:41)
[2019-03-28] MEDS: Tamsulosin CAP* 0.4 MG PO SCH (08:09)
[2019-03-28] MEDS: Carvedilol TAB* 3.125 MG PO SCH ×2 (08:10→20:40)
[2019-03-28] MEDS: Fluticasone NASAL SPRAY 50MCG* 16 gm SPRAY BTL BOTH NARES SCH (09:02)
[2019-03-28] MEDS: Warfarin TAB(*) 1 MG PO SCH (17:32)
[2019-03-28] MEDS: Atorvastatin* 20 MG TAB PO SCH (20:40)
[2019-03-28] MEDS: Mirtazapine TAB* 15 MG PO SCH (20:40)
[2019-03-28] MEDS: traZODone TAB* 100 MG PO SCH (20:43)
[2019-03-29 06:17] LABS: INR 2.28 (0.82-1.09)
[2019-03-29] MEDS: Carvedilol TAB* 3.125 MG PO SCH ×2 (09:27→19:15)
[2019-03-29] MEDS: Furosemide TAB* 20 MG PO SCH (09:27)
[2019-03-29] MEDS: Sulfamethox/Trimethoprim DS 800/160* TAB PO SCH (09:29)
[2019-03-29] MEDS: Famotidine TAB* 20 MG PO SCH ×2 (09:29→20:52)
[2019-03-29] MEDS: Tamsulosin CAP* 0.4 MG PO SCH (09:29)
[2019-03-29] MEDS: Senna TAB 8.6 mg* TAB PO SCH ×2 (09:29→20:50)
[2019-03-29] MEDS: Fluticasone NASAL SPRAY 50MCG* 16 gm SPRAY BTL BOTH NARES SCH (09:29)
[2019-03-29] MEDS: Finasteride TAB* 5 MG PO SCH (09:29)
[2019-03-29] MEDS: Aspirin 81 mg CHEW TAB* 81 MG TAB.CHEW PO SCH (09:29)
[2019-03-29] MEDS ORDERED: Magnesium Hydroxide LIQ* 30 ML UDC PO PRN (10:44)
[2019-03-29] MEDS: Warfarin TAB(*) 1 MG PO SCH (16:44)
[2019-03-29] MEDS: traZODone TAB* 100 MG PO SCH (20:50)
[2019-03-29] MEDS: Polyethylene Glycol 3350* 17 GM PACKET PO PRN (20:50)
[2019-03-29] MEDS: Atorvastatin* 20 MG TAB PO SCH (20:51)
[2019-03-29] MEDS: Mirtazapine TAB* 15 MG PO SCH (20:51)
[2019-03-30] MEDS: Carvedilol TAB* 3.125 MG PO SCH ×3 (08:00→22:11)
[2019-03-30] MEDS: Tamsulosin CAP* 0.4 MG PO SCH (08:28)
[2019-03-30] MEDS: Aspirin 81 mg CHEW TAB* 81 MG TAB.CHEW PO SCH (08:28)
[2019-03-30] MEDS: Finasteride TAB* 5 MG PO SCH (08:28)
[2019-03-30] MEDS: Senna TAB 8.6 mg* TAB PO SCH ×2 (08:28→22:12)
[2019-03-30] MEDS: Famotidine TAB* 20 MG PO SCH ×2 (08:28→22:12)
[2019-03-30] MEDS: Sulfamethox/Trimethoprim DS 800/160* TAB PO SCH (08:28)
[2019-03-30] MEDS: Fluticasone NASAL SPRAY 50MCG* 16 gm SPRAY BTL BOTH NARES SCH (08:28)
[2019-03-30] MEDS: LORazepam TAB(*) 0.5 MG PO PRN (14:29)
[2019-03-30] MEDS: Warfarin TAB(*) 1 MG PO SCH (16:55)
[2019-03-30] MEDS: Atorvastatin* 20 MG TAB PO SCH (22:11)
[2019-03-30] MEDS: traZODone TAB* 100 MG PO SCH (22:12)
[2019-03-30] MEDS: Mirtazapine TAB* 15 MG PO SCH (22:12)
[2019-03-30] MEDS ORDERED: Haloperidol INJ IV/IM* 5 MG/ML AMP IM PRN (23:53)
[2019-03-31] MEDS: Carvedilol TAB* 3.125 MG PO SCH (08:17)
[2019-03-31] MEDS: Furosemide TAB* 20 MG PO SCH (08:30)
[2019-03-31] MEDS ORDERED: NS 0.9% 250 ML* 250 ML IV ONE (08:37)
--- NOTE | 2019-03-31 08:50 | PN ---
Subjective Date of Service: 03/31/19 Interval History: HOSPITALIST PROGRESS NOTE Patient seen and examined at bedside. Care reviewed and d/w Angelic Real RN. His BP was 58/30 this AM with no complaints, but he has not gotten out of bed or done any exertion. He denies chest pain or dyspnea. Family History: Unchanged from Admission Social History: Unchanged from Admission Past Medical History: Unchanged from Admission Objective Active Medications: Acetaminophen (Tylenol Tab*) 650 mg PO Q4H PRN PRN Reason: PAIN-MODERATE/TEMP >/= 100.4 Albuterol/Ipratropium (Duoneb (Albuterol 2.5 Mg/Ipratropium 0.5 Mg)) 1 neb INH Q4H PRN PRN Reason: SOB/WHEEZING Artificial Tears (Lacrilube Oint*) 1 applic BOTH EYES Q8HR PRN PRN Reason: DRY EYE Aspirin (Aspirin 81 Mg Chew Tab*) 81 mg PO DAILY [facility] Last Admin: 03/30/19 08:28 Dose: 81 mg Atorvastatin Calcium (Lipitor*) 20 mg PO BEDTIME [facility] Last Admin: 03/30/19 22:11 Dose: Not Given Carvedilol (Coreg Tab*) 1.56 mg PO BID [facility] Last Admin: 03/31/19 08:17 Dose: Not Given Cyanocobalamin (Vitamin B12 Inj *) 1,000 mcg IM MONTHLY [facility] Famotidine (Pepcid Tab*) 20 mg PO BID [facility] Last Admin: 03/30/19 22:12 Dose: Not Given Finasteride (Proscar Tab*) 5 mg PO DAILY [facility] Last Admin: 03/30/19 08:28 Dose: 5 mg Fluticasone Propionate (Flonase Nasal [place] 50mcg*) 2 spray BOTH NARES DAILY [facility] Last Admin: 03/30/19 08:28 Dose: 2 spray Furosemide (Lasix Tab*) 20 mg PO MOWEFR [facility] Last Admin: 03/31/19 08:30 Dose: Not Given Guaifenesin (Robitussin*) 5 ml PO Q4HR PRN PRN Reason: CONSTIPATION Haloperidol Lactate (Haldol Inj Iv/Im*) 2 mg IM Q6H PRN PRN Reason: AGITATION Loperamide HCl (Imodium Cap*) 2 mg PO QID PRN PRN Reason: LOOSE STOOLS Lorazepam (Ativan Tab(*)) 0.5 mg PO TID PRN PRN Reason: ANXIETY Last Admin: 03/30/19 14:29 Dose: 0.5 mg Magnesium Hydroxide (Milk Of Magnesia Liq*) 30 ml PO Q6H PRN PRN Reason: CONSTIPATION Last Admin: 03/29/19 16:44 Dose: 30 ml Midodrine (Midodrine) 5 mg PO TID [facility]; Protocol Mirtazapine (Remeron Tab*) 7.5 mg PO BEDTIME [facility] Last Admin: 03/30/19 22:12 Dose: Not Given Polyethylene Glycol/Electrolytes (Miralax*) 17 gm PO DAILY PRN PRN Reason: CONSTIPATION Last Admin: 03/29/19 20:50 Dose: 17 gm Senna (Senokot 8.6 Mg Tab*) 1 tab PO BID [facility] Last Admin: 03/30/19 22:12 Dose: Not Given Tamsulosin HCl (Flomax Cap*) 0.4 mg PO DAILY [facility] Last Admin: 03/30/19 08:28 Dose: 0.4 mg Temazepam (Restoril Cap*) 15 mg PO BEDTIME PRN PRN Reason: SLEEP Tramadol HCl (Ultram*) 50 mg PO Q6HR PRN PRN Reason: PAIN - MODERATE Last Admin: 03/30/19 15:44 Dose: 50 mg Trazodone HCl (Desyrel Tab*) 200 mg PO BEDTIME [facility] Last Admin: 03/30/19 22:12 Dose: Not Given Trimethoprim/Sulfamethoxazole (Bactrim Ds 800/160 Tab*) 1 tab PO DAILY [facility] Last Admin: 03/30/19 08:28 Dose: 1 tab Warfarin Sodium (Coumadin Tab(*)) 1.5 mg PO MOTUWEFRSA@1700 [facility]; Protocol Last Admin: 03/30/19 16:55 Dose: 1.5 mg Warfarin Sodium (Coumadin Tab(*)) 1 mg PO SUTH@1700 [facility]; Protocol Last Admin: 03/28/19 17:32 Dose: 1 mg Vital Signs - 8 hr 03/31/19 03/31/19 00:57 07:23 Temperature 97.4 F Pulse Rate 114 87 Respiratory 16 16 Rate Blood Pressure 58/30 (mmHg) O2 Sat by Pulse 97 98 Oximetry Oxygen Devices in Use Now: Nasal Cannula - 3 liters Appearance: Elderly gentleman lying in bed in NAD, non cooperative with physical exam Eyes: No Scleral Icterus Ears/Nose/Mouth/Throat: Mucous Membranes Moist Neck: Trachea Midline Respiratory: Symmetrical Chest Expansion and Respiratory Effort, - - BS+ bilaterally with bibasilar crackles Cardiovascular: RRR - Normal S1 and S2 Abdominal: NL Sounds; No Tenderness; No Distention Extremities: - - Bilateral LE edema Neurological: - - AAOx2 (self and place), SCHWARZ Result Diagrams: 03/25/19 04:55 03/25/19 04:55 Assess/Plan/Problems-Billing Assessment: Mr Hester is an 88yo M with PMH of type 2 DM, dementia, GERD, HTN, CAD, Hodgkin' s lymphoma, s/p pacemaker, systolic CHF EF 20-25%, recent admission for ischemic stroke who was sent to ED due to hypoxia and agitation. - Patient Problems (1) Hypotension Comment: - Suspect this is likely secondary to his systolic CHF and aortic stenosis/insufficiency. No signs of active infection at this time. Labs on admission were normal; will order repeat labs. - Cardiology consult requested with Dr Pastor. - Lengthy conversation with HCP to discuss goals of care. She was surprised I suspect patient has end stage CHF and could not give me a clear path forward. She's clear his quality of life is not good and he would not want aggressive/ invasive procedures done, but cannot elaborate more than that. - Will give NS 250ml bolus and start Midodrine. - Palliative care consult requested with Dr Breaux. (2) Dementia Comment: - Patient with known h/o dementia, with periods of agitation and aggressivity. - Continue Mirtazapine, Lorazepam PRN, Trazodone. - Supportive care. (3) Hypoxia Comment: - On his prior admission, it was felt his hypoxia was secondary to fluid overload. He appears to be euvolemic at this time, but still requires 2-3 liters. (4) Chronic systolic CHF (congestive heart failure) Comment: - EF low at 20-25% with moderate aortic stenosis/insufficiency. - BP could not tolerate coreg, lasix even with lower doses. (5) Atrial fibrillation Comment: - Continue Warfarin. (6) DVT prophylaxis Comment: - Warfarin. (7) DNR (do not resuscitate) Status and Disposition: Change from nursing home to inpatient.
[2019-03-31 09:39] LABS: ABS Basophils 0.1 10^3/ul (0-0.2); ABS Eosinophils 0.3 10^3/ul (0-0.6); ABS Lymphocytes 1.7 10^3/ul (1.0-4.8); ABS Monocytes 0.9 10^3/ul (0-0.8); ABS Neutrophils 3.6 10^3/ul (1.5-7.7); Eosinophil % 4.5 %; Hematocrit 39 % (42-52); Hemoglobin 13.2 g/dL (14.0-18.0); Lymphocyte % 25.4 %; Mean Corpuscular HGB Conc 34 g/dL (31-36); Mean Corpuscular Hemoglobin 33 pg (27-31); Mean Corpuscular Volume 96 fL (80-94); Mean Platelet Volume 7.9 fL (7.4-10.4); Nucleated Red Blood Cells % 0.1; Platelet Count 211 10^3/uL (150-450); Red Blood Count 4.05 10^6 /uL (4.18-5.48); Red Cell Distribution Width 17 % (10-15); White Blood Count 6.6 10^3/uL (3.5-10.8)
[2019-03-31 09:55] LABS: Albumin 3.7 g/dL (3.2-5.2); Albumin/Globulin Ratio 1.6 (1-3); BUN/Creatinine Ratio 18.3 (8-20); EGFR Non-African American 76.9 (>60); Globulin 2.3 g/dL (2-4); Potassium 4.2 mmol/L (3.5-5.0); Total Bilirubin 0.6 mg/dL (0.2-1.0)
[2019-03-31] MEDS: Fluticasone NASAL SPRAY 50MCG* 16 gm SPRAY BTL BOTH NARES SCH (12:34)
[2019-03-31] MEDS: Famotidine TAB* 20 MG PO SCH ×2 (12:35→21:11)
[2019-03-31] MEDS: Senna TAB 8.6 mg* TAB PO SCH ×2 (12:35→21:11)
[2019-03-31] MEDS: Tamsulosin CAP* 0.4 MG PO SCH (12:35)
[2019-03-31] MEDS: Finasteride TAB* 5 MG PO SCH (12:35)
[2019-03-31] MEDS: Aspirin 81 mg CHEW TAB* 81 MG TAB.CHEW PO SCH (12:35)
[2019-03-31] MEDS: Sulfamethox/Trimethoprim DS 800/160* TAB PO SCH (12:35)
--- NOTE | 2019-03-31 12:51 | PN ---
Hospitalist Progress Note Date of Service: 03/31/19 HOSPITALIST ADDENDUM Patient re-evaluated multiple times during the shift. Seen at bedside with Dr Pastor. Continues to have no complaints. Dr Pastor measures systolic BP in the 90s. Laboratory Tests 03/31/19 03/31/19 03/31/19 09:16 09:16 09:16 WBC 6.6 Hgb 13.2 L Hct 39 L Plt Count 211 Sodium 134 L Potassium 4.2 Chloride 104 Carbon Dioxide 26 BUN 17 Creatinine 0.93 Glucose 125 H Lactic Acid 1.4 Calcium 9.0 Total Bilirubin 0.60 AST 29 ALT 19 He has good perfusion, extremities are warm, so suspect prior numbers were not accurate. Will not give anymore fluid at this time. He spit Midodrine out. Will continue to monitor, await Palliative care consult and visit from his HCP.
[2019-03-31 14:35] LABS: Urine Appearance Cloudy; Urine Bacteria Absent (Absent); Urine Bilirubin Negative (Negative); Urine Blood 1+ (Negative); Urine Color Yellow; Urine Glucose Negative (Negative); Urine Ketones Negative (Negative); Urine Nitrite Negative (Negative); Urine Protein Negative (Negative); Urine Red Blood Cell 1+(3-5/hpf) (Absent); Urine Specific Gravity 1.017 (1.010-1.030); Urine Squamous Epithelial Cell Present (Absent); Urine Urobilinogen Negative (Negative); Urine White Blood Cell 1+(6-10/hpf) (Absent)
--- NOTE | 2019-03-31 15:24 | CONSULT ---
Palliative / Hospice Consult Ordering Provider: Silvana Bain - PCP-[facility] Referal Reason: Goals of care/on bowel regimen/SOB improved with O2 - Subjective Code Status: DNR Advance Directives Location: No Advance Directives MOLST Part A Completed: Yes - completed with HCP MOLST Part E Completed:: Yes - completed with HCP - History or Present Illness History or Present Illness: 88yo male resident of [facility] with dementia stage 6e and end-stage CHF presents with agitation and SOB. Pt was recently discharged on 03/23 after being admitted with L facial droop and ischemic stroke. PMH is significant for DM type 2, GERD, HTN, CAD, h/o hodgkins lymphoma, afib s/p pacer & on coumadin and mod aortic stenosis on home O2 2 liters. PSHx retired from [employer], never no children, ex tob user, occ etoh and no drug use, HCP is his cousin Batsheva Lopez [phone]. Studies show CXR-mild vascular congestion, ekg- ventricular paced, H/H 13.2/39, BUN/Cr 17/.93, egfr 76.9, tprot 6, alb 3.7, BNP 892 and INR 2.28. Pt was admitted with CHF exacerbation and hypoxia secondary to not wearing O2. All information is from family and medical record, pt is unable to contribute. Nursing notes that pt is incontinent of bowel, is unable to bathe or dress himself but can feed himself and use urinal with direction. Lab Values: Abnormal Lab Results 03/31/19 03/31/19 03/31/19 09:16 09:16 09:16 WBC 6.6 RBC 4.05 L Hgb 13.2 L Hct 39 L MCV 96 H MCH 33 H MCHC 34 RDW 17 H Plt Count 211 MPV 7.9 Neut % (Auto) 54.8 Lymph % (Auto) 25.4 Roberts % (Auto) 14.2 Eos % (Auto) 4.5 Baso % (Auto) 1.1 Absolute Neuts (auto) 3.6 Absolute Lymphs (auto) 1.7 Absolute Monos (auto) 0.9 H Absolute Eos (auto) 0.3 Absolute Basos (auto) 0.1 Absolute Nucleated RBC 0.0 Nucleated RBC % 0.1 Sodium 134 L Potassium 4.2 Chloride 104 Carbon Dioxide 26 Anion Gap 4 BUN 17 Creatinine 0.93 Est GFR ( Amer) 93.0 Est GFR (Non-Af Amer) 76.9 BUN/Creatinine Ratio 18.3 Glucose 125 H Lactic Acid 1.4 Calcium 9.0 Total Bilirubin 0.60 AST 29 ALT 19 Alkaline Phosphatase 72 Total Protein 6.0 L Albumin 3.7 Globulin 2.3 Albumin/Globulin Ratio 1.6 Urine Color Urine Appearance Urine pH Ur Specific [place] Urine Protein Urine Ketones Urine Blood Urine Nitrate Urine Bilirubin Urine Urobilinogen Ur Leukocyte Esterase Urine WBC (Auto) Urine RBC (Auto) Ur Squamous Epith Cells Urine Bacteria Urine Glucose 03/31/19 13:40 WBC RBC Hgb Hct MCV MCH MCHC RDW Plt Count MPV Neut % (Auto) Lymph % (Auto) Roberts % (Auto) Eos % (Auto) Baso % (Auto) Absolute Neuts (auto) Absolute Lymphs (auto) Absolute Monos (auto) Absolute Eos (auto) Absolute Basos (auto) Absolute Nucleated RBC Nucleated RBC % Sodium Potassium Chloride Carbon Dioxide Anion Gap BUN Creatinine Est GFR ( Amer) Est GFR (Non-Af Amer) BUN/Creatinine Ratio Glucose Lactic Acid Calcium Total Bilirubin AST ALT Alkaline Phosphatase Total Protein Albumin Globulin Albumin/Globulin Ratio Urine Color Yellow Urine Appearance Cloudy Urine pH 6.0 Ur Specific [place] 1.017 Urine Protein Negative Urine Ketones Negative Urine Blood 1+ A Urine Nitrate Negative Urine Bilirubin Negative Urine Urobilinogen Negative Ur Leukocyte Esterase Trace A Urine WBC (Auto) 1+(6-10/hpf) A Urine RBC (Auto) 1+(3-5/hpf) A Ur Squamous Epith Cells Present A Urine Bacteria Absent Urine Glucose Negative Laboratory Last Values WBC 6.6 10^3/uL (3.5-10.8) 03/31/19 09:16 RBC 4.05 10^6 /uL (4.18-5.48) L 03/31/19 09:16 Hgb 13.2 g/dL (14.0-18.0) L 03/31/19 09:16 Hct 39 % (42-52) L 03/31/19 09:16 MCV 96 fL (80-94) H 03/31/19 09:16 MCH 33 pg (27-31) H 03/31/19 09:16 MCHC 34 g/dL (31-36) 03/31/19 09:16 RDW 17 % (10-15) H 03/31/19 09:16 Plt Count 211 10^3/uL (150-450) 03/31/19 09:16 MPV 7.9 fL (7.4-10.4) 03/31/19 09:16 Neut % (Auto) 54.8 % 03/31/19 09:16 Lymph % (Auto) 25.4 % 03/31/19 09:16 Roberts % (Auto) 14.2 % 03/31/19 09:16 Eos % (Auto) 4.5 % 03/31/19 09:16 Baso % (Auto) 1.1 % 03/31/19 09:16 Absolute Neuts (auto) 3.6 10^3/ul (1.5-7.7) 03/31/19 09:16 Absolute Lymphs (auto) 1.7 10^3/ul (1.0-4.8) 03/31/19 09:16 Absolute Monos (auto) 0.9 10^3/ul (0-0.8) H 03/31/19 09:16 Absolute Eos (auto) 0.3 10^3/ul (0-0.6) 03/31/19 09:16 Absolute Basos (auto) 0.1 10^3/ul (0-0.2) 03/31/19 09:16 Absolute Nucleated RBC 0.0 10^3/ul 03/31/19 09:16 Nucleated RBC % 0.1 03/31/19 09:16 INR (Anticoag Therapy) 2.28 (0.82-1.09) H 03/29/19 05:22 APTT 45.1 seconds (26.0-38.0) H 03/25/19 04:55 Sodium 134 mmol/L (135-145) L 03/31/19 09:16 Potassium 4.2 mmol/L (3.5-5.0) 03/31/19 09:16 Chloride 104 mmol/L (101-111) 03/31/19 09:16 Carbon Dioxide 26 mmol/L (22-32) 03/31/19 09:16 Anion Gap 4 mmol/L (2-11) 03/31/19 09:16 BUN 17 mg/dL (6-24) 03/31/19 09:16 Creatinine 0.93 mg/dL (0.67-1.17) 03/31/19 09:16 Est GFR ( Amer) 93.0 (>60) 03/31/19 09:16 Est GFR (Non-Af Amer) 76.9 (>60) 03/31/19 09:16 BUN/Creatinine Ratio 18.3 (8-20) 03/31/19 09:16 Glucose 125 mg/dL (70-100) H 03/31/19 09:16 Lactic Acid 1.4 mmol/L (0.5-2.0) 03/31/19 09:16 Calcium 9.0 mg/dL (8.6-10.3) 03/31/19 09:16 Total Bilirubin 0.60 mg/dL (0.2-1.0) 03/31/19 09:16 AST 29 U/L (13-39) 03/31/19 09:16 ALT 19 U/L (7-52) 03/31/19 09:16 Alkaline Phosphatase 72 U/L (34-104) 03/31/19 09:16 Troponin I 0.03 ng/mL (<0.04) 03/25/19 04:55 B-Natriuretic Peptide 892 pg/mL (<=100) H 03/25/19 04:55 Total Protein 6.0 g/dL (6.4-8.9) L 03/31/19 09:16 Albumin 3.7 g/dL (3.2-5.2) 03/31/19 09:16 Globulin 2.3 g/dL (2-4) 03/31/19 09:16 Albumin/Globulin Ratio 1.6 (1-3) 03/31/19 09:16 Urine Color Yellow 03/31/19 13:40 Urine Appearance Cloudy 03/31/19 13:40 Urine pH 6.0 (5-9) 03/31/19 13:40 Ur Specific [place] 1.017 (1.010-1.030) 03/31/19 13:40 Urine Protein Negative (Negative) 03/31/19 13:40 Urine Ketones Negative (Negative) 03/31/19 13:40 Urine Blood 1+ (Negative) A 03/31/19 13:40 Urine Nitrate Negative (Negative) 03/31/19 13:40 Urine Bilirubin Negative (Negative) 03/31/19 13:40 Urine Urobilinogen Negative (Negative) 03/31/19 13:40 Ur Leukocyte Esterase Trace (Negative) A 03/31/19 13:40 Urine WBC (Auto) 1+(6-10/hpf) (Absent) A 03/31/19 13:40 Urine RBC (Auto) 1+(3-5/hpf) (Absent) A 03/31/19 13:40 Ur Squamous Epith Cells Present (Absent) A 03/31/19 13:40 Urine Bacteria Absent (Absent) 03/31/19 13:40 Urine Glucose Negative (Negative) 03/31/19 13:40 - Objective Active Medications: Acetaminophen (Tylenol Tab*) 650 mg PO Q4H PRN PRN Reason: PAIN-MODERATE/TEMP >/= 100.4 Albuterol/Ipratropium (Duoneb (Albuterol 2.5 Mg/Ipratropium 0.5 Mg)) 1 neb INH Q4H PRN PRN Reason: SOB/WHEEZING Artificial Tears (Lacrilube Oint*) 1 applic BOTH EYES Q8HR PRN PRN Reason: DRY EYE Aspirin (Aspirin 81 Mg Chew Tab*) 81 mg PO DAILY [facility] Last Admin: 03/31/19 12:35 Dose: 81 mg Atorvastatin Calcium (Lipitor*) 20 mg PO BEDTIME [facility] Last Admin: 03/30/19 22:11 Dose: Not Given Cyanocobalamin (Vitamin B12 Inj *) 1,000 mcg IM MONTHLY [facility] Famotidine (Pepcid Tab*) 20 mg PO BID [facility] Last Admin: 03/31/19 12:35 Dose: 20 mg Finasteride (Proscar Tab*) 5 mg PO DAILY [facility] Last Admin: 03/31/19 12:35 Dose: 5 mg Fluticasone Propionate (Flonase Nasal [place] 50mcg*) 2 spray BOTH NARES DAILY [facility] Last Admin: 03/31/19 12:34 Dose: 2 spray Guaifenesin (Robitussin*) 5 ml PO Q4HR PRN PRN Reason: CONSTIPATION Haloperidol Lactate (Haldol Inj Iv/Im*) 2 mg IM Q6H PRN PRN Reason: AGITATION Loperamide HCl (Imodium Cap*) 2 mg PO QID PRN PRN Reason: LOOSE STOOLS Lorazepam (Ativan Tab(*)) 0.5 mg PO TID PRN PRN Reason: ANXIETY Last Admin: 03/30/19 14:29 Dose: 0.5 mg Magnesium Hydroxide (Milk Of Magnesia Liq*) 30 ml PO Q6H PRN PRN Reason: CONSTIPATION Last Admin: 03/29/19 16:44 Dose: 30 ml Midodrine (Midodrine) 5 mg PO TID [facility]; Protocol Last Admin: 03/31/19 13:14 Dose: Not Given Mirtazapine (Remeron Tab*) 7.5 mg PO BEDTIME [facility] Last Admin: 03/30/19 22:12 Dose: Not Given Polyethylene Glycol/Electrolytes (Miralax*) 17 gm PO DAILY PRN PRN Reason: CONSTIPATION Last Admin: 03/29/19 20:50 Dose: 17 gm Senna (Senokot 8.6 Mg Tab*) 1 tab PO BID [facility] Last Admin: 03/31/19 12:35 Dose: 1 tab Tamsulosin HCl (Flomax Cap*) 0.4 mg PO DAILY [facility] Last Admin: 03/31/19 12:35 Dose: 0.4 mg Temazepam (Restoril Cap*) 15 mg PO BEDTIME PRN PRN Reason: SLEEP Tramadol HCl (Ultram*) 50 mg PO Q6HR PRN PRN Reason: PAIN - MODERATE Last Admin: 03/30/19 15:44 Dose: 50 mg Trazodone HCl (Desyrel Tab*) 200 mg PO BEDTIME [facility] Last Admin: 03/30/19 22:12 Dose: Not Given Trimethoprim/Sulfamethoxazole (Bactrim Ds 800/160 Tab*) 1 tab PO DAILY [facility] Last Admin: 03/31/19 12:35 Dose: 1 tab Warfarin Sodium (Coumadin Tab(*)) 1.5 mg PO MOTUWEFRSA@1700 [facility]; Protocol Last Admin: 03/30/19 16:55 Dose: 1.5 mg Warfarin Sodium (Coumadin Tab(*)) 1 mg PO SUTH@1700 [facility]; Protocol Last Admin: 03/28/19 17:32 Dose: 1 mg Vital Signs: Vital Signs: Temp Pulse Resp BP Pulse Ox 97.4 F 87 16 64/48 98 03/31/19 07:23 03/31/19 07:23 03/31/19 07:23 03/31/19 10:00 03/31/19 07:23 Patient Weight: Weight 94.256 kg Intake and Output: Intake & Output 03/29/19 03/30/19 03/31/19 04/01/19 06:59 06:59 06:59 06:59 Intake Total 4788 843 1466 800 Output Total 950 834 1647 350 Balance 230 290 160 450 Intake: Oral 1238 254 9187 800 Output: Urine 591 516 4296 350 Other: Estimated Void Small Large Medium Large Date of Last Bowel [id number] Movement # Bowel Movements 0 0 0 0 Estimated Stool Amount Medium # Voids 1 1 1 1 ADLs: Meal Record Start: 03/25/19 09: 36 Freq: DAILY@0900,1400,1800 Status: Active Protocol: Created 03/25/19 09:36 System (Rec: 03/25/19 09:36 System [facility]) Document 03/25/19 14:00 [id number] (Rec: 03/25/19 17:02 [id number] MED-C09) Document 03/25/19 18:00 [id number] (Rec: 03/25/19 19:02 [id number] MED-C09) Document 03/26/19 09:00 [id number] (Rec: 03/26/19 09:37 [id number] MED-C02) Document 03/26/19 13:20 [id number] (Rec: 03/26/19 13:21 [id number] MED-C09) Document 03/26/19 17:52 [id number] (Rec: 03/26/19 17:52 [id number] MED-C11) Document 03/27/19 09:00 [id number] (Rec: 03/27/19 10:16 [id number] MED-C09) Document 03/27/19 17:22 [id number] (Rec: 03/27/19 17:23 [id number] MED-C11) Document 03/27/19 19:15 [id number] (Rec: 03/27/19 19:15 [id number] MED-C09) Document 03/28/19 08:57 [id number] (Rec: 03/28/19 08:57 [id number] MED-C11) Document 03/28/19 13:34 [id number] (Rec: 03/28/19 13:34 [id number] MED-C09) Document 03/28/19 18:00 [id number] (Rec: 03/28/19 20:02 [id number] MED-C13) Document 03/29/19 09:00 [id number] (Rec: 03/29/19 09:44 [id number] MED-C09) Document 03/29/19 12:37 [id number] (Rec: 03/29/19 12:37 [id number] MED-C11) Document 03/29/19 18:00 [id number] (Rec: 03/29/19 20:38 [id number] MED-C05) Document 03/30/19 09:00 [id number] (Rec: 03/30/19 09:33 [id number] MED-C13) Document 03/30/19 14:00 [id number] (Rec: 03/30/19 14:01 [id number] MED-C13) Document 03/30/19 18:00 [id number] (Rec: 03/30/19 20:21 [id number] MED-C09) Document 03/31/19 09:00 [id number] (Rec: 03/31/19 09:15 [id number] MED-C05) Document 03/31/19 13:16 [id number] (Rec: 03/31/19 13:17 [id number] MED-C05) Intake and Output Start: 03/25/19 02: 07 Freq: Status: Active Protocol: Created 03/25/19 02:07 System (Rec: 03/25/19 02:07 System [id number]) Document 03/27/19 01:38 [id number] (Rec: 03/27/19 01:38 [id number] MED-C05) Intake and Output Start: 03/25/19 09: 36 Freq: DAILY@0600,1400,2200 Status: Active Protocol: Created 03/25/19 09:36 System (Rec: 03/25/19 09:36 System [id number]-M16) Document 03/25/19 14:00 [id number] (Rec: 03/25/19 17:02 [id number] MED-C09) Document 03/25/19 22:00 [id number] (Rec: 03/25/19 23:05 [id number] MED-C09) Document 03/26/19 04:34 [id number] (Rec: 03/26/19 04:34 [id number] MED-C11) Document 03/26/19 06:00 [id number] (Rec: 03/26/19 06:19 [id number] MED-C11) Document 03/26/19 22:00 [id number] (Rec: 03/27/19 01:08 [id number] MED-C11) Document 03/27/19 05:53 [id number] (Rec: 03/27/19 05:53 [id number] MED-C11) Document 03/27/19 21:17 [id number] (Rec: 03/27/19 21:17 [id number] MED-C07) Document 03/28/19 05:21 [id number] (Rec: 03/28/19 05:21 [id number] MED-C11) Document 03/28/19 14:00 [id number] (Rec: 03/28/19 14:33 [id number] MED-C09) Document 03/28/19 22:00 [id number] (Rec: 03/28/19 22:31 [id number] MED-C13) Document 03/29/19 05:23 [id number] (Rec: 03/29/19 05:24 [id number] MED-C07) Document 03/29/19 13:03 [id number] (Rec: 03/29/19 13:03 [id number] MED-C11) Document 03/29/19 22:00 [id number] (Rec: 03/29/19 22:39 [id number] MED-C05) Document 03/30/19 05:27 [id number] (Rec: 03/30/19 05:28 [id number] MED-C11) Document 03/30/19 14:00 [id number] (Rec: 03/30/19 14:01 [id number] MED-C13) Document 03/30/19 21:37 [id number] (Rec: 03/30/19 21:39 [id number] MED-C09) Document 03/31/19 00:52 [id number] (Rec: 03/31/19 00:53 [id number] MED-C12) Document 03/31/19 05:24 [id number] (Rec: 03/31/19 06:16 [id number] MED-C13) Document 03/31/19 13:16 [id number] (Rec: 03/31/19 13:17 [id number] MED-C05) Eyes: No Scleral Icterus Ears/Nose/Mouth/Throat: Mucous Membranes Moist Neck: Trachea Midline Cardiovascular: RRR - Normal S1 and S2 Abdominal: NL Sounds; No Tenderness; No Distention Extremities: - - Bilateral LE edema Neurological: - - AAOx2 (self and place), SCHWARZ - Assessment Assessment: 88yo male with dementia and end stage CHF presents with agitation and SOB eligible for hospice - Plan Consult Plan (MU): Hospice Plan: Long discussion with cousins Batsheva his HCP and Nandini. Dr. Bain was present for most of conversation, she explained his CHF is end stage and has a 3-6 month prognosis. Pt also has stage 6e dementia. Family understood and they want him to be comfortable with no aggressive medical interventions. He is a DNR/DNI and no feeding tube, new MOLST was completed. Pt was living at [facility] in assisted living but they will not take him back. He did receive a bed offer from [facility] and was going there today when his blood pressure dropped. Hospice information was given and family would like him to sign on with hospice. At this time they want to know if he is able to return to [facility] with hospice, if that is not an option they are interested in the residence. They are aware that there is a $300/day room charge. Their last choice is to go to SNF with hospice. HCP mentioned that pt didn't want to be kept alive if he had a poor quality of life and didn't want CPR or intubation. I explained MOLST and hospice can be changed at anytime. Pt is eligible for hospice with diagnosis of end stage CHF EF 20-25%, mod-severe aortic insufficiency and stage 6e dementia. KPS 40%, PPS 40% - Time On Unit Date of Evaluation: 03/31/19 Hospice Consult Time in: 14:00 Hospice Consult Time Out: 15:30 Hospice Consult Time Total: 90
[2019-03-31] MEDS: LORazepam TAB(*) 0.5 MG PO PRN (17:34)
[2019-03-31] MEDS: Warfarin TAB(*) 1 MG PO SCH (17:35)
[2019-03-31] MEDS: Mirtazapine TAB* 15 MG PO SCH (21:06)
[2019-03-31] MEDS: traZODone TAB* 100 MG PO SCH (21:07)
[2019-03-31] MEDS: Atorvastatin* 20 MG TAB PO SCH (21:11)
--- NOTE | 2019-04-01 02:13 | CONS ---
CC: Dr. Stuart Umana; Dr. Foster; hospitalist at [facility] * CARDIOLOGY CONSULTATION: DATE OF CONSULT: 03/31/19 REASON FOR CONSULT: Hypotension. CHIEF COMPLAINT: He states "he feels the same", nursing staff at [facility] sent the patient in change in mentation. HISTORY OF PRESENT ILLNESS: The patient was not cooperative to providing a history. He says he feels the same as always. He denies shortness of breath, chest pain, pressure, heaviness or discomfort. I reviewed records from his visit with Dr. Foster on 11/30/18 and his [facility] records. These document that the patient has a severe cardiomyopathy and severe valvular heart disease. He was admitted earlier this month with a left facial droop and ischemic stroke. [facility] also was concerned about shortness of breath. In the emergency room, he was noted to be hypoxic with an oxygen saturation of 86% (the patient is noncompliant with oxygen). Admission notes document history of change in mentation with trazodone , felt to be consistent with . Since admission on 03/26/19, the patient's blood pressure has been very low and has become progressively low and this morning was documented as low as 58/30. CURRENT MEDICATIONS: Outpatient medications include: 1. Coumadin. 2. Atorvastatin 20 mg a day, 3. Coreg 3.125 mg b.i.d. 4. Lasix 20 mg a day with titration p.r.n. 5. Tramadol 50 mg q.8 hours p.r.n. 6. Tamsulosin 0.4 mg a day. 7. Ativan 0.5 mg b.i.d. 8. MiraLAX 17 g daily. 9. Proscar 5 mg a day. 10. Senna. 11. B12 monthly. 12. Vitamin D3 2000 units daily. 13. Artificial tears. 14. Tylenol p.r.n. 15. Trazodone 100 mg q.h.s. 16. Remeron 7.5 mg q.h.s. 17. Famotidine 20 mg b.i.d. Current inpatient medications include, 1. Tylenol. 2. DuoNeb. 3. Lacri-Lube. 4. Aspirin 81 mg a day. 5. Lipitor 20 mg a day. 6. B12 monthly. 7. Pepcid. 8. Proscar. 9. Flonase. 10. Robitussin. 11. Haldol. 12. Imodium. 13. Ativan. 14. Milk of magnesia. 15. Remeron. 16. Senna. 17. Flomax. 18. Restoril. 19. Tramadol. 20. Trazodone. 21. Bactrim. 22. Coumadin. ALLERGIES: He has no known drug allergies. PAST MEDICAL HISTORY: The patient has a past medical history of: 1. Moderate to severe aortic stenosis. 2. Coronary artery disease, most recent cardiac catheterization is 2009 showing left main clear of disease, LAD mild to moderate plaque up to 50%, distal LAD 40%, circumflex mild plaque. Right coronary artery large caliber, dominant, diffuse ectasia. Ejection fraction was 30% to 35%. 3. Moderate to severe aortic stenosis. 4. Mild to moderate mitral insufficiency. 5. Mild to moderate tricuspid insufficiency. 6. Diabetes. 7. Hypertension. 8. Non-Hodgkin's lymphoma 2001. 9. History of chemotherapy. 10. Dyslipidemia. PAST SURGICAL HISTORY: Includes: 1. Left inguinal hernia repair. 2. Tonsillectomy. 3. I do not know if it is a pacemaker implantation for high degree heart block. 4. Recent ischemic stroke. FAMILY HISTORY: Positive for his father dying of kidney disease at age 47. His mother had a history of hypertension, of breast cancer at age 80. SOCIAL HISTORY: The patient is a resident of [place], has a healthcare proxy, Batsheva Lopez. He is a retired. Former smoker. Rare alcohol in the past, none now. REVIEW OF SYSTEMS: Not able to be obtained. The patient denies complaints. PHYSICAL EXAM: On exam, the patient is 5 feet 7 inches, weighs 207 pounds with a BMI of 32. Vitals at the time of my exam, blood pressure is 64/48, 52/30. Manual blood pressure done by myself personally showed systolic blood pressure around 88 by auscultation confirmed by radial pulse and needle pulse. General Appearance: Elderly gentleman lying flat, appeared comfortable. Psychologically , uncooperative in terms of not answering questions or following commands, but pleasant enough. Neurologically unable to evaluate, but not following commands, answered some questions. Spontaneous movements in the bed were grossly normal. Skin: No cyanosis, warm, and dry. HEENT: Mucous membranes moderately moist. Neck: Without appreciable increased JVP, although not in optimal position. Breath sounds diminished anterolaterally and on posterior basis. Coronary: Distant, hard to hear. S1 and S2 regular. Trace systolic murmur heard in the upper sternal border. Very distant heat sounds. Abdomen: Flat. Active bowel sounds. Soft and nontender. Lower extremities: Showed mild edema. DIAGNOSTIC STUDIES/LAB DATA: Chest x-ray from 03/25/19 showed vascular congestion. EKG from 03/27/19 showed ventricular paced rhythm, not significantly changed from office EKG of November 2018. Echocardiogram from 03/18/19 showed ejection fraction 20% to 25%, RV dilatation with pacer wire noted and moderate RV systolic dysfunction, biatrial enlargement. Moderate aortic valve stenosis, possibly overestimated. Mild to moderate aortic insufficiency. Mild to moderate mitral insufficiency. Mild to moderate tricuspid insufficiency. I cannot find the PA pressure. White count 6.6, hematocrit 39, platelets 211, INR 2.28. Sodium 134, potassium 4.2, chloride 104, bicarb 26, BUN 17, creatinine 0.93, glucose 125, normal transaminases, BNP of 892, total protein 6. Urinalysis, positive white cells, trace leukocyte esterase, positive blood, negative nitrites, negative ketones. No microbiology data. IMPRESSION AND PLAN: In summary, Mr. Hester is an 88-year-old gentleman with a longstanding severe cardiomyopathy that is out of proportion to his coronary artery disease; significant valvular heart disease with moderate to severe aortic stenosis, leaky aortic, mitral and tricuspid valves; history of chronic atrial fibrillation, on Coumadin and now presenting with mentation changes with noncompliance with oxygen and on several medications that could lead to change in his mentation. The patent's blood pressure has been low on this admission, although I think perhaps not in the 50s based on my own personal exam, but in low 90s and high 80s. 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 According to Dr. Foster 's noes, he has declined upgrading his pacer to a biventricular device many times in the past and his RV apical pacing is likely contributing to his cardiomyopathy as is his valvular heart disease. As when the patient was mentating at his baseline in the past and he declined more aggressive management , I do not feel he is a candidate for aggressive management at this point in time and I think we should proceed with palliative and comfort measures. I agree with the removal of any blood pressure lowering medicines, which include his carvedilol and diuretics. I also recommend stopping his Flomax (tamsulosin) as this can lower his blood pressure. I would look for other ways to manage his prostate issues. For blood pressure and mentation, I would try to avoid medications that lower blood pressure and maybe over aggressively managing sleep, agitation, and mentation issues. I agree with Dr. Lacy's addition of midodrine and would avoid Florinef as this will lead to worsening congestive heart failure and pulmonary hypertension. Dr. Breaux saw the patient after me and I did review her note and agree with the palliative approach. Additional recommendations can be made. Overall, Mr. Hester's end-stage cardiomyopathy likely due to RV pacing, valvular heart disease, and time now with marked hypotension c/w cardiogenic insufficiency/shock. I would remove all blood pressure lowering agents including Flomax as above and treat for comfort, palliative care. I do not feel any aggressive or invasive cardiac measures medical or interventional are indicated at this point. The patients regular ship pilot Dr Foster will be on service 04/01/19. Thank you for allowing me to assist in this nice gentleman's care. [id number]/[facility] #: [id number] AUNG
[2019-04-01] MEDS: Sulfamethox/Trimethoprim DS 800/160* TAB PO SCH (09:07)
[2019-04-01] MEDS: Famotidine TAB* 20 MG PO SCH (09:07)
[2019-04-01] MEDS: Finasteride TAB* 5 MG PO SCH (09:07)
[2019-04-01] MEDS: LORazepam TAB(*) 0.5 MG PO PRN ×2 (09:07→17:41)
[2019-04-01] MEDS: Senna TAB 8.6 mg* TAB PO SCH (09:08)
[2019-04-01] MEDS: Aspirin 81 mg CHEW TAB* 81 MG TAB.CHEW PO SCH (09:08)
[2019-04-01] MEDS: Fluticasone NASAL SPRAY 50MCG* 16 gm SPRAY BTL BOTH NARES SCH (09:08)
--- NOTE | 2019-04-01 09:49 | PN ---
Subjective Date of Service: 04/01/19 Interval History: HOSPITALIST PROGRESS NOTE Patient seen and examined at bedside. Care reviewed and d/w Ginny Mosqueda RN. He was sleeping when I saw him. Easily arousable, offered no complaints, just wanted to be covered with his blanket again. Family History: Unchanged from Admission Social History: Unchanged from Admission Past Medical History: Unchanged from Admission Objective Active Medications: Acetaminophen (Tylenol Tab*) 650 mg PO Q4H PRN PRN Reason: PAIN-MODERATE/TEMP >/= 100.4 Albuterol/Ipratropium (Duoneb (Albuterol 2.5 Mg/Ipratropium 0.5 Mg)) 1 neb INH Q4H PRN PRN Reason: SOB/WHEEZING Artificial Tears (Lacrilube Oint*) 1 applic BOTH EYES Q8HR PRN PRN Reason: DRY EYE Aspirin (Aspirin 81 Mg Chew Tab*) 81 mg PO DAILY [facility] Last Admin: 04/01/19 09:08 Dose: 81 mg Atorvastatin Calcium (Lipitor*) 20 mg PO BEDTIME [facility] Last Admin: 03/31/19 21:11 Dose: 20 mg Cyanocobalamin (Vitamin B12 Inj *) 1,000 mcg IM MONTHLY [facility] Famotidine (Pepcid Tab*) 20 mg PO BID [facility] Last Admin: 04/01/19 09:07 Dose: 20 mg Finasteride (Proscar Tab*) 5 mg PO DAILY [facility] Last Admin: 04/01/19 09:07 Dose: 5 mg Fluticasone Propionate (Flonase Nasal [place] 50mcg*) 2 spray BOTH NARES DAILY [facility] Last Admin: 04/01/19 09:08 Dose: 2 spray Guaifenesin (Robitussin*) 5 ml PO Q4HR PRN PRN Reason: CONSTIPATION Haloperidol Lactate (Haldol Inj Iv/Im*) 2 mg IM Q6H PRN PRN Reason: AGITATION Loperamide HCl (Imodium Cap*) 2 mg PO QID PRN PRN Reason: LOOSE STOOLS Lorazepam (Ativan Tab(*)) 0.5 mg PO TID PRN PRN Reason: ANXIETY Last Admin: 04/01/19 09:07 Dose: 0.5 mg Magnesium Hydroxide (Milk Of Magnesia Liq*) 30 ml PO Q6H PRN PRN Reason: CONSTIPATION Last Admin: 03/29/19 16:44 Dose: 30 ml Midodrine (Midodrine) 5 mg PO TID [facility]; Protocol Last Admin: 04/01/19 09:07 Dose: 5 mg Mirtazapine (Remeron Tab*) 7.5 mg PO BEDTIME [facility] Last Admin: 03/31/19 21:06 Dose: 7.5 mg Polyethylene Glycol/Electrolytes (Miralax*) 17 gm PO DAILY PRN PRN Reason: CONSTIPATION Last Admin: 03/29/19 20:50 Dose: 17 gm Senna (Senokot 8.6 Mg Tab*) 1 tab PO BID [facility] Last Admin: 04/01/19 09:08 Dose: 1 tab Temazepam (Restoril Cap*) 15 mg PO BEDTIME PRN PRN Reason: SLEEP Tramadol HCl (Ultram*) 50 mg PO Q6HR PRN PRN Reason: PAIN - MODERATE Last Admin: 03/30/19 15:44 Dose: 50 mg Trazodone HCl (Desyrel Tab*) 200 mg PO BEDTIME [facility] Last Admin: 03/31/19 21:07 Dose: 200 mg Trimethoprim/Sulfamethoxazole (Bactrim Ds 800/160 Tab*) 1 tab PO DAILY [facility] Last Admin: 04/01/19 09:07 Dose: 1 tab Warfarin Sodium (Coumadin Tab(*)) 1.5 mg PO MOTUWEFRSA@1700 [facility]; Protocol Last Admin: 03/31/19 17:35 Dose: 1.5 mg Warfarin Sodium (Coumadin Tab(*)) 1 mg PO SUTH@1700 GIOR[facility]IO; Protocol Last Admin: 03/28/19 17:32 Dose: 1 mg Vital Signs - 8 hr 04/01/19 04/01/19 04:00 09:07 Temperature 97.9 F Pulse Rate 110 Respiratory 19 18 Rate Blood Pressure 90/71 (mmHg) O2 Sat by Pulse 93 Oximetry Oxygen Devices in Use Now: Nasal Cannula Appearance: Elderly gentleman lying in bed in NAD. Eyes: No Scleral Icterus Ears/Nose/Mouth/Throat: Mucous Membranes Moist Neck: Trachea Midline Respiratory: Symmetrical Chest Expansion and Respiratory Effort, - - BS+ bilaterally diminished with bibasilar crackles Cardiovascular: RRR - Normal S1 and S2 Abdominal: NL Sounds; No Tenderness; No Distention - obese Neurological: - - Sleeping, arousable to voice, oriented to self Result Diagrams: 03/31/19 09:16 03/31/19 09:16 Assess/Plan/Problems-Billing Assessment: Mr Hester is an 88yo M with PMH of type 2 DM, dementia, GERD, HTN, CAD, Hodgkin' s lymphoma, s/p pacemaker, systolic CHF EF 20-25%, recent admission for ischemic stroke who was sent to ED due to hypoxia and agitation. - Patient Problems (1) Chronic systolic CHF (congestive heart failure) Comment: - End stage cardiomyopathy. - Palliative care and Cardiology consults much appreciated. Lengthy conversation with patient's HCP (his cousin) about his diagnosis and progressive decline. She has elected comfort care measures and plan is to discharge to SNF with Hospice. (2) Dementia Comment: - Patient with known h/o dementia, with periods of agitation and aggressivity. - Continue Mirtazapine, Lorazepam PRN, Trazodone. - Supportive care. (3) Atrial fibrillation Comment: - Continue Warfarin. (4) DVT prophylaxis Comment: - Warfarin. (5) DNR (do not resuscitate) Status and Disposition: Inpatient. Comfort care measures, plan to d/c to SNF with Hospice.
[2019-04-01] MEDS: Warfarin TAB(*) 1 MG PO SCH (17:41)
--- NOTE | 2019-04-01 23:16 | DS ---
CC: Dr. Umana; Dr. Foster; Dr. Breaux; Dr. Pastor; [facility] with Hospice * DISCHARGE SUMMARY: DATE OF ADMISSION: 03/25/19 TENTATIVE DATE OF DISCHARGE: 04/02/19 PRIMARY CARE PROVIDER: Dr. Umana. BINDING STITCHER: Dr. Foster. PALLIATIVE CARE PHYSICIAN: Dr. Breaux. CONSULTING BINDING STITCHER: Dr. Pastor. DISCHARGE DIAGNOSES: 1. Endstage systolic congestive heart failure. 2. Severe hypotension secondary to the above. 3. Dementia. SECONDARY DIAGNOSES: 1. Type 2 diabetes. 2. Gastroesophageal reflux disease. 3. Coronary artery disease. 4. History of Hodgkin's lymphoma. 5. Status post pacemaker. 6. Chronic congestive heart failure with ejection fraction of 20% to 25% with moderate aortic insufficiency and stenosis. 7. Recent ischemic stroke. MEDICATION LIST: 1. Acetaminophen 650 mg p.o. q.4 hours p.r.n. pain. 2. DuoNeb nebulized q.4 hours p.r.n. shortness of breath. 3. Lacri-Lube Artificial Tear ointment to both eyes every 8 hours as needed for dry eye. 4. Aspirin 81 mg p.o. daily. 5. Famotidine 20 mg p.o. b.i.d. 6. Finasteride 5 mg p.o. daily. 7. Guaifenesin 200 mg p.o. q.4 hours p.r.n. cough. 8. Loperamide 2 mg p.o. 4 times a day as needed for diarrhea. 9. Lorazepam 0.5 mg p.o. t.i.d. as needed for anxiety and agitation. 10. Milk of magnesia 30 mL q.6 hours p.r.n. for constipation. 11. Midodrine 5 mg p.o. t.i.d. 12. Mirtazapine 7.5 mg p.o. at bedtime. 13. MiraLAX 17 grams p.o. daily as needed for constipation. 14. Senna 1 tablet p.o. b.i.d. 15. Temazepam 15 mg p.o. at bedtime as needed for insomnia. 16. Tramadol 50 mg p.o. q. 6 hours p.r.n. pain. 17. Trazodone 200 mg p.o. at bedtime. 18. Warfarin 1 mg p.o. on Sundays and and 1.5 mg on Mondays, Tuesdays , Wednesdays, Fridays and Saturdays. HOSPITAL COURSE: Mr. Hester is an 88-year-old male with a past medical history as stated above who was discharged from [facility] on 03/23/19 with a diagnosis of ischemic stroke. He was discharged to [facility] and he was sent back with reports of altered mentation and hypoxia. For more details about his presentation, I refer you to his history and physical. The impression was that the patient was hypoxic because he was not wearing his supplemental oxygen and his agitation was secondary to his dementia. He was later on switched to care home care while he waited for [facility] to make a decision if they would be able to receive him back. In the meantime, in the hospital, the patient's blood pressure was on the lower side and that appeared to be his baseline. I decreased his Coreg dose and then I decreased his diuretic, but he continued to be hypotensive. On 03/31/19, the patient had a systolic blood pressure in the 50s. At that point, I contacted his family. We went over options and they were not interested in aggressive measures. The patient was seen in consultation by Cardiology (Dr. Pastor) and her impression is that the patient has endstage cardiomyopathy. According to the Dr. Foster's note, the patient declined upgrading his pacer to a biventricular device many times in the past and his RV apical pacing is likely contributing to his cardiomyopathy as is his valvular heart disease. As when the patient was maintaining at his baseline in the past, he declined more aggressive management. Dr. Pastor did not feel he was a candidate for aggressive management at this point in time and she was in agreement with proceeding with palliative and comfort measures. She recommended discontinuing his carvedilol and diuretics and also stopping his Flomax as this could also lower his blood pressure. Midodrine was also added to his regimen to try and improve his blood pressure and perfusion. The patient was seen by Palliative Care in consultation (Dr. Breaux) and we had a long family meeting with the patient's healthcare proxy, his cousin, Batsheva Lopez and Dr. Breaux stated that the patient was eligible for hospice with a diagnosis of endstage CHF, moderate to severe aortic insufficiency, endstage 6E dementia. After further discussion with healthcare proxy, [facility]. At this point, the patient's warfarin is going to continued as he had recent stroke, but later on this can once again be readdressed. PHYSICAL EXAMINATION: Vital Signs: Temperature 97.3, heart rate is 75, respiratory rate is 18, oxygen saturation 96% on 2 L, blood pressure is 73/42. General: The patient is an elderly gentleman, lying in bed in no acute distress. CVS: Normal S1, S2. Regular rate and rhythm. Chest: Breath sounds are present bilaterally with bibasilar crackles. Abdomen is obese. Neuro: He is alert and oriented x2, to self and place. Able to move all 4 extremities. DIET: Regular diet for comfort ACTIVITIES: As tolerated. DISPOSITION: To [facility] with hospice. CONDITION AT THE TIME OF DISCHARGE: Guarded. STATUS WHILE IN THE HOSPITAL: Inpatient. Please keep in mind that this is a summarized version of this patient's hospital stay. If you need more information, please feel free to call me at or please obtain full medical records. If there is any change in condition, a discharge addendum will be dictated. [id number]/[facility] #: [id number] MTDD
[2019-04-02] MEDS: traZODone TAB* 100 MG PO SCH ×2 (01:46→21:43)
[2019-04-02] MEDS: Mirtazapine TAB* 15 MG PO SCH (01:46)
[2019-04-02] MEDS: LORazepam TAB(*) 0.5 MG PO PRN (01:47)
[2019-04-02] MEDS: Atorvastatin* 20 MG TAB PO SCH (01:54)
[2019-04-02] MEDS: Famotidine TAB* 20 MG PO SCH ×3 (01:54→21:44)
[2019-04-02] MEDS: Senna TAB 8.6 mg* TAB PO SCH ×3 (01:55→21:44)
[2019-04-02] MEDS ORDERED: Atropine 1% (ORAL/SL)* 15 ML BTL SL PRN (08:08)
--- NOTE | 2019-04-02 08:17 | PN ---
Subjective Date of Service: 04/02/19 Interval History: Pt states he is "terrible", says his "gut" is the problem, cannot clarify this any better. Diminished communication skills. Family History: Unchanged from Admission Social History: Unchanged from Admission Past Medical History: Unchanged from Admission Objective Active Medications: Acetaminophen (Tylenol Tab*) 650 mg PO Q4H PRN PRN Reason: PAIN-MODERATE/TEMP >/= 100.4 Albuterol/Ipratropium (Duoneb (Albuterol 2.5 Mg/Ipratropium 0.5 Mg)) 1 neb INH Q4H PRN PRN Reason: SOB/WHEEZING Artificial Tears (Lacrilube Oint*) 1 applic BOTH EYES Q8HR PRN PRN Reason: DRY EYE Aspirin (Aspirin 81 Mg Chew Tab*) 81 mg PO DAILY [facility] Last Admin: 04/01/19 09:08 Dose: 81 mg Atropine Sulfate (Atropine 1% (Oral/Sl)*) 2 drop SL Q2H PRN PRN Reason: DYSPNEA Famotidine (Pepcid Tab*) 20 mg PO BID [facility] Last Admin: 04/02/19 01:54 Dose: Not Given Finasteride (Proscar Tab*) 5 mg PO DAILY [facility] Last Admin: 04/01/19 09:07 Dose: 5 mg Fluticasone Propionate (Flonase Nasal [place] 50mcg*) 2 spray BOTH NARES DAILY [facility] Last Admin: 04/01/19 09:08 Dose: 2 spray Guaifenesin (Robitussin*) 5 ml PO Q4HR PRN PRN Reason: CONSTIPATION Lorazepam (Ativan Tab(*)) 0.5 mg PO TID PRN PRN Reason: ANXIETY Last Admin: 04/01/19 17:41 Dose: 0.5 mg Magnesium Hydroxide (Milk Of Magnesia Liq*) 30 ml PO Q6H PRN PRN Reason: CONSTIPATION Last Admin: 03/29/19 16:44 Dose: 30 ml Midodrine (Midodrine) 5 mg PO TID [facility]; Protocol Last Admin: 04/02/19 01:55 Dose: Not Given Morphine Sulfate (Morphine Oral Concentrate*) 5 mg SL Q30M PRN PRN Reason: PAIN - MILD Polyethylene Glycol/Electrolytes (Miralax*) 17 gm PO DAILY PRN PRN Reason: CONSTIPATION Last Admin: 03/29/19 20:50 Dose: 17 gm Senna (Senokot 8.6 Mg Tab*) 1 tab PO BID [facility] Last Admin: 04/02/19 01:55 Dose: Not Given Temazepam (Restoril Cap*) 15 mg PO BEDTIME PRN PRN Reason: SLEEP Tramadol HCl (Ultram*) 50 mg PO Q6HR PRN PRN Reason: PAIN - MODERATE Last Admin: 03/30/19 15:44 Dose: 50 mg Trazodone HCl (Desyrel Tab*) 150 mg PO BEDTIME [facility] Trimethoprim/Sulfamethoxazole (Bactrim Ds 800/160 Tab*) 1 tab PO DAILY [facility] Last Admin: 04/01/19 09:07 Dose: 1 tab Warfarin Sodium (Coumadin Tab(*)) 1.5 mg PO MOTUWEFRSA@1700 GI[facility]; Protocol Last Admin: 03/31/19 17:35 Dose: 1.5 mg Warfarin Sodium (Coumadin Tab(*)) 1 mg PO SUTH@1700 GIOR[facility]; Protocol Last Admin: 04/01/19 17:41 Dose: 1 mg Vital Signs - 8 hr 04/02/19 00:20 Pulse Rate 75 Respiratory 16 Rate O2 Sat by Pulse 96 Oximetry Oxygen Devices in Use Now: Nasal Cannula Appearance: Alert, on Left side in bed. Tachypneic, somewhat agitated. Respiratory: Symmetrical Chest Expansion and Respiratory Effort, Clear to Auscultation, Clear to Percussion, - - tachypneic in bed Abdominal: NL Sounds; No Tenderness; No Distention, No Hepatosplenomegaly, - Extremities: No Edema, No Clubbing, Cyanosis, - Skin: No Rash or Ulcers, No Nodules or Sclerosis, - Neurological: NL Sensation - Gave his age as 82, seems [place], unable to answer most questions, probably disoriented. Result Diagrams: 03/31/19 09:16 03/31/19 09:16 Assess/Plan/Problems-Billing Assessment: Mr Hester is an 88yo M with PMH of type 2 DM, dementia, GERD, HTN, CAD, Hodgkin' s lymphoma, s/p pacemaker, systolic CHF EF 20-25%, recent admission for ischemic stroke who was sent to ED due to hypoxia and agitation. - Patient Problems (1) Atrial fibrillation Current Visit: Yes Status: Acute Code(s): I48.91 - UNSPECIFIED ATRIAL FIBRILLATION SNOMED Code(s): 80447569 Comment: Stat INR 04/02 pending. Stop sulfa. (2) Chronic systolic CHF (congestive heart failure) Current Visit: Yes Status: Acute Code(s): I50.22 - CHRONIC SYSTOLIC ( CONGESTIVE) HEART FAILURE SNOMED Code(s): 317851266 Comment: - End stage cardiomyopathy and mod on echo. - Palliative care and Cardiology consults much appreciated. Patient's HCP (his cousin) has elected comfort care measures and plan is to discharge to SNF with Hospice. (3) Dementia Current Visit: Yes Status: Acute Code(s): F03.90 - UNSPECIFIED DEMENTIA WITHOUT BEHAVIORAL DISTURBANCE SNOMED Code(s): 75696636 Comment: - Patient with known h/o dementia, with periods of agitation and aggressivity. - Stop Mirtazapine, continue Lorazepam PRN, Reduce Trazodone. - Supportive care. (4) Hypotension Current Visit: Yes Status: Acute Comment: - Suspect this is likely secondary to his systolic CHF and aortic stenosis/insufficiency. No signs of active infection at this time. - Palliative care consult with Dr Breaux appreciated. (5) End of life care Current Visit: Yes Status: Acute Code(s): Z51.5 - ENCOUNTER FOR PALLIATIVE CARE SNOMED Code(s): 140321028 Comment: If possible will discuss stopping warfarin and other drugs with HCP. Stop statin. Status and Disposition: Inpatient. Comfort care measures, plan to d/c to SNF with Hospice.
[2019-04-02] MEDS: Fluticasone NASAL SPRAY 50MCG* 16 gm SPRAY BTL BOTH NARES SCH (08:58)
[2019-04-02] MEDS: Morphine ORAL CONCENTRATE* 5 MG/0.25 ML ORAL.SYRIN SL PRN ×3 (09:00→16:51)
[2019-04-02] MEDS: Aspirin 81 mg CHEW TAB* 81 MG TAB.CHEW PO SCH (09:00)
[2019-04-02] MEDS: Finasteride TAB* 5 MG PO SCH (09:00)
[2019-04-02] MEDS: LORazepam TAB(*) 0.5 MG SL PRN ×2 (13:23→16:51)
[2019-04-02] MEDS: Polyethylene Glycol 3350* 17 GM PACKET PO PRN (13:24)
[2019-04-02] MEDS: Warfarin TAB(*) 1 MG PO SCH (16:52)
[2019-04-03 08:34] LABS: INR 2.62 (0.82-1.09)
[2019-04-03] MEDS: Famotidine TAB* 20 MG PO SCH ×2 (09:02→21:25)
[2019-04-03] MEDS: Aspirin 81 mg CHEW TAB* 81 MG TAB.CHEW PO SCH (09:02)
[2019-04-03] MEDS: Finasteride TAB* 5 MG PO SCH (09:02)
[2019-04-03] MEDS: Senna TAB 8.6 mg* TAB PO SCH ×2 (09:02→21:25)
[2019-04-03] MEDS: Fluticasone NASAL SPRAY 50MCG* 16 gm SPRAY BTL BOTH NARES SCH (09:11)
[2019-04-03] MEDS: LORazepam TAB(*) 0.5 MG SL PRN ×2 (12:38→19:58)
--- NOTE | 2019-04-03 16:02 | PN ---
Subjective Date of Service: 04/03/19 Interval History: Sleeping quietly in bed. Family History: Unchanged from Admission Social History: Unchanged from Admission Past Medical History: Unchanged from Admission Objective Active Medications: Acetaminophen (Tylenol Tab*) 650 mg PO Q4H PRN PRN Reason: PAIN-MODERATE/TEMP >/= 100.4 Albuterol/Ipratropium (Duoneb (Albuterol 2.5 Mg/Ipratropium 0.5 Mg)) 1 neb INH Q4H PRN PRN Reason: SOB/WHEEZING Artificial Tears (Lacrilube Oint*) 1 applic BOTH EYES Q8HR PRN PRN Reason: DRY EYE Aspirin (Aspirin 81 Mg Chew Tab*) 81 mg PO DAILY [facility] Last Admin: 04/03/19 09:02 Dose: 81 mg Atropine Sulfate (Atropine 1% (Oral/Sl)*) 2 drop SL Q2H PRN PRN Reason: DYSPNEA Famotidine (Pepcid Tab*) 20 mg PO BID [facility] Last Admin: 04/03/19 09:02 Dose: 20 mg Finasteride (Proscar Tab*) 5 mg PO DAILY [facility] Last Admin: 04/03/19 09:02 Dose: 5 mg Fluticasone Propionate (Flonase Nasal [place] 50mcg*) 2 spray BOTH NARES DAILY [facility] Last Admin: 04/03/19 09:11 Dose: Not Given Guaifenesin (Robitussin*) 5 ml PO Q4HR PRN PRN Reason: CONSTIPATION Lorazepam (Ativan Tab(*)) 0.5 mg SL Q3H PRN PRN Reason: ANXIETY Last Admin: 04/03/19 12:38 Dose: 0.5 mg Magnesium Hydroxide (Milk Of Magnesia Liq*) 30 ml PO Q6H PRN PRN Reason: CONSTIPATION Last Admin: 03/29/19 16:44 Dose: 30 ml Midodrine (Midodrine) 5 mg PO TID [facility]; Protocol Last Admin: 04/03/19 15:17 Dose: 5 mg Morphine Sulfate (Morphine Oral Concentrate*) 5 mg SL Q30M PRN PRN Reason: PAIN - MILD Last Admin: 04/02/19 16:51 Dose: 5 mg Polyethylene Glycol/Electrolytes (Miralax*) 17 gm PO DAILY PRN PRN Reason: CONSTIPATION Last Admin: 04/02/19 13:24 Dose: 17 gm Senna (Senokot 8.6 Mg Tab*) 1 tab PO BID [facility] Last Admin: 04/03/19 09:02 Dose: 1 tab Temazepam (Restoril Cap*) 15 mg PO BEDTIME PRN PRN Reason: SLEEP Tramadol HCl (Ultram*) 50 mg PO Q6HR PRN PRN Reason: PAIN - MODERATE Last Admin: 03/30/19 15:44 Dose: 50 mg Trazodone HCl (Desyrel Tab*) 150 mg PO BEDTIME [facility] Last Admin: 04/02/19 21:43 Dose: 150 mg Warfarin Sodium (Coumadin Tab(*)) 1.5 mg PO MOTUWEFRSA@1700 [facility]; Protocol Last Admin: 04/02/19 16:52 Dose: 1.5 mg Warfarin Sodium (Coumadin Tab(*)) 1 mg PO SUTH@1700 [facility]; Protocol Last Admin: 04/01/19 17:41 Dose: 1 mg Vital Signs - 8 hr 04/03/19 04/03/19 08:00 12:38 Respiratory 22 20 Rate Oxygen Devices in Use Now: Nasal Cannula Appearance: Lying on L side in bed, asleep. Looks comfortable. Eyes: No Scleral Icterus Result Diagrams: 03/31/19 09:16 03/31/19 09:16 Microbiology and Other Data: Microbiology 03/31/19 13:40 Urine Culture - Final Urine Enterococcus Faecalis Assess/Plan/Problems-Billing Assessment: Mr Hester is an 88yo M with PMH of type 2 DM, dementia, GERD, HTN, CAD, Hodgkin' s lymphoma, s/p pacemaker, systolic CHF EF 20-25%, recent admission for ischemic stroke who was sent to ED due to hypoxia and agitation. - Patient Problems (1) Atrial fibrillation Current Visit: Yes Status: Acute Code(s): I48.91 - UNSPECIFIED ATRIAL FIBRILLATION SNOMED Code(s): 29466582 Comment: Last dose of sulfa was 04/01/19. INR 9/1. 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 - Palliative care and Cardiology consults much appreciated. Patient's HCP (his cousin) has elected comfort care measures and plan is to discharge to SNF with Hospice. (3) Dementia Current Visit: Yes Status: Acute Code(s): F03.90 - UNSPECIFIED DEMENTIA WITHOUT BEHAVIORAL DISTURBANCE SNOMED Code(s): 46846791 Comment: - Patient with known h/o dementia, with periods of agitation and aggressivity. - Stop temazepam as not using it. Continue GDR of trazodone. - Supportive care. (4) Hypotension Current Visit: Yes Status: Acute Comment: - Suspect this is likely secondary to his systolic CHF and aortic stenosis/insufficiency. No signs of active infection at this time. - Palliative care consult with Dr Saeid burris. (5) End of life care Current Visit: Yes Status: Acute Code(s): Z51.5 - ENCOUNTER FOR PALLIATIVE CARE SNOMED Code(s): 943492688 Comment: If possible will discuss stopping warfarin and other drugs with HCP. Stop statin. Status and Disposition: Inpatient. Comfort care measures, plan to d/c to SNF with Hospice.
[2019-04-03] MEDS: Warfarin TAB(*) 1 MG PO SCH (18:02)
[2019-04-03] MEDS: traZODone TAB* 100 MG PO SCH (19:57)
[2019-04-04 06:05] LABS: INR 2.72 (0.82-1.09)
[2019-04-04] MEDS: LORazepam TAB(*) 0.5 MG SL PRN ×2 (07:57→16:20)
[2019-04-04] MEDS: Senna TAB 8.6 mg* TAB PO SCH ×2 (07:58→21:04)
[2019-04-04] MEDS: Polyethylene Glycol 3350* 17 GM PACKET PO PRN (07:58)
[2019-04-04] MEDS: Famotidine TAB* 20 MG PO SCH ×2 (07:58→21:03)
[2019-04-04] MEDS: Finasteride TAB* 5 MG PO SCH (07:58)
[2019-04-04] MEDS: Aspirin 81 mg CHEW TAB* 81 MG TAB.CHEW PO SCH (07:58)
[2019-04-04] MEDS: Fluticasone NASAL SPRAY 50MCG* 16 gm SPRAY BTL BOTH NARES SCH (08:01)
--- NOTE | 2019-04-04 08:57 | PN ---
Subjective Date of Service: 04/04/19 Interval History: Sleeping, does not c/o to staff. Family History: Unchanged from Admission Social History: Unchanged from Admission Past Medical History: Unchanged from Admission Objective Active Medications: Acetaminophen (Tylenol Tab*) 650 mg PO Q4H PRN PRN Reason: PAIN-MODERATE/TEMP >/= 100.4 Albuterol/Ipratropium (Duoneb (Albuterol 2.5 Mg/Ipratropium 0.5 Mg)) 1 neb INH Q4H PRN PRN Reason: SOB/WHEEZING Artificial Tears (Lacrilube Oint*) 1 applic BOTH EYES Q8HR PRN PRN Reason: DRY EYE Aspirin (Aspirin 81 Mg Chew Tab*) 81 mg PO DAILY [facility] Last Admin: 04/04/19 07:58 Dose: 81 mg Atropine Sulfate (Atropine 1% (Oral/Sl)*) 2 drop SL Q2H PRN PRN Reason: DYSPNEA Famotidine (Pepcid Tab*) 20 mg PO BID [facility] Last Admin: 04/04/19 07:58 Dose: 20 mg Finasteride (Proscar Tab*) 5 mg PO DAILY [facility] Last Admin: 04/04/19 07:58 Dose: 5 mg Fluticasone Propionate (Flonase Nasal [place] 50mcg*) 2 spray BOTH NARES DAILY [facility] Last Admin: 04/04/19 08:01 Dose: Not Given Guaifenesin (Robitussin*) 5 ml PO Q4HR PRN PRN Reason: CONSTIPATION Lorazepam (Ativan Tab(*)) 0.5 mg SL Q3H PRN PRN Reason: ANXIETY Last Admin: 04/04/19 07:57 Dose: 0.5 mg Magnesium Hydroxide (Milk Of Magnesia Liq*) 30 ml PO Q6H PRN PRN Reason: CONSTIPATION Last Admin: 03/29/19 16:44 Dose: 30 ml Midodrine (Midodrine) 5 mg PO TID [facility]; Protocol Last Admin: 04/04/19 07:58 Dose: 5 mg Morphine Sulfate (Morphine Oral Concentrate*) 5 mg SL Q30M PRN PRN Reason: PAIN - MILD Last Admin: 04/02/19 16:51 Dose: 5 mg Nystatin (Nystatin Top Powder*) 1 applic TOPICAL BID [facility] Polyethylene Glycol/Electrolytes (Miralax*) 17 gm PO DAILY PRN PRN Reason: CONSTIPATION Last Admin: 04/04/19 07:58 Dose: 17 gm Senna (Senokot 8.6 Mg Tab*) 1 tab PO BID [facility] Last Admin: 04/04/19 07:58 Dose: 1 tab Tramadol HCl (Ultram*) 50 mg PO Q6HR PRN PRN Reason: PAIN - MODERATE Last Admin: 03/30/19 15:44 Dose: 50 mg Trazodone HCl (Desyrel Tab*) 100 mg PO BEDTIME [facility] Warfarin Sodium (Coumadin Tab(*)) 1 mg PO 1700 [facility]; Protocol Vital Signs - 8 hr 04/04/19 07:57 Respiratory 18 Rate Oxygen Devices in Use Now: Nasal Cannula Appearance: Sleeping on Left side, looks comfortable. Respiratory: - - resp sl increased, quiet Extremities: No Edema, No Clubbing, Cyanosis, - Skin: No Rash or Ulcers, No Nodules or Sclerosis, - Neurological: - - sleeping Result Diagrams: 03/31/19 09:16 03/31/19 09:16 Microbiology and Other Data: Microbiology 03/31/19 13:40 Urine Culture - Final Urine Enterococcus Faecalis Assess/Plan/Problems-Billing Assessment: Mr Hester is an 88yo M with PMH of type 2 DM, dementia, GERD, HTN, CAD, Hodgkin' s lymphoma, s/p pacemaker, systolic CHF EF 20-25%, recent admission for ischemic stroke who was sent to ED due to hypoxia and agitation. - Patient Problems (1) Atrial fibrillation Current Visit: Yes Status: Acute Code(s): I48.91 - UNSPECIFIED ATRIAL FIBRILLATION SNOMED Code(s): 48100795 Comment: Last dose of sulfa was 04/01/19. Reduced warfarin to 1 mg daily, started 04/04. Plan INR in 2-3 days. His HCP Batsheva John wants to continue warfarin. I spoke with her 04/04 and explained why it might be better to stop it. 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 - Palliative care and Cardiology consults much appreciated. Patient's HCP (his cousin) has elected comfort care measures and plan is to discharge to SNF with Hospice. (3) Dementia Current Visit: Yes Status: Acute Code(s): F03.90 - UNSPECIFIED DEMENTIA WITHOUT BEHAVIORAL DISTURBANCE SNOMED Code(s): 93566879 Comment: - Patient with known h/o dementia, with periods of agitation and aggressivity. - Stop temazepam as not using it. Continue GDR of trazodone. - Supportive care. (4) Hypotension Current Visit: Yes Status: Acute Comment: - Suspect this is likely secondary to his systolic CHF and aortic stenosis/insufficiency. No signs of active infection at this time. - Palliative care consult with Dr Saeid burris. (5) End of life care Current Visit: Yes Status: Acute Code(s): Z51.5 - ENCOUNTER FOR PALLIATIVE CARE SNOMED Code(s): 378739453 Comment: If discussed reducing his meds with Batsheva Lopez, his HCP. She would like to continue warfarin and ASA to prevent a stroke. Status and Disposition: Inpatient. Comfort care measures, plan to d/c to SNF with Hospice.
[2019-04-04] MEDS: Nystatin TOP POWDER* 15 GM BTL TOPICAL SCH ×2 (09:21→21:04)
[2019-04-04] MEDS: Warfarin TAB(*) 1 MG PO SCH (16:21)
[2019-04-04] MEDS: traZODone TAB* 100 MG PO SCH (21:03)
[2019-04-05 05:51] LABS: INR 2.4 (0.82-1.09)
[2019-04-05] MEDS: Polyethylene Glycol 3350* 17 GM PACKET PO PRN (08:39)
[2019-04-05] MEDS: LORazepam TAB(*) 0.5 MG SL PRN (08:40)
[2019-04-05] MEDS: Senna TAB 8.6 mg* TAB PO SCH ×2 (08:40→21:20)
[2019-04-05] MEDS: Finasteride TAB* 5 MG PO SCH (08:41)
[2019-04-05] MEDS: Famotidine TAB* 20 MG PO SCH ×2 (08:41→21:21)
[2019-04-05] MEDS: Nystatin TOP POWDER* 15 GM BTL TOPICAL SCH ×2 (08:41→21:23)
[2019-04-05] MEDS: Fluticasone NASAL SPRAY 50MCG* 16 gm SPRAY BTL BOTH NARES SCH (08:41)
[2019-04-05] MEDS: Aspirin 81 mg CHEW TAB* 81 MG TAB.CHEW PO SCH (08:41)
--- NOTE | 2019-04-05 11:09 | PN ---
Subjective Date of Service: 04/05/19 Interval History: No c/o. He said breakfast was "terrible," and it was scrambled eggs and a hard roll. Family History: Unchanged from Admission Social History: Unchanged from Admission Past Medical History: Unchanged from Admission Objective Active Medications: Acetaminophen (Tylenol Tab*) 650 mg PO Q4H PRN PRN Reason: PAIN-MODERATE/TEMP >/= 100.4 Albuterol/Ipratropium (Duoneb (Albuterol 2.5 Mg/Ipratropium 0.5 Mg)) 1 neb INH Q4H PRN PRN Reason: SOB/WHEEZING Artificial Tears (Lacrilube Oint*) 1 applic BOTH EYES Q8HR PRN PRN Reason: DRY EYE Aspirin (Aspirin 81 Mg Chew Tab*) 81 mg PO DAILY [facility] Last Admin: 04/05/19 08:41 Dose: 81 mg Atropine Sulfate (Atropine 1% (Oral/Sl)*) 2 drop SL Q2H PRN PRN Reason: DYSPNEA Famotidine (Pepcid Tab*) 20 mg PO BID [facility] Last Admin: 04/05/19 08:41 Dose: 20 mg Finasteride (Proscar Tab*) 5 mg PO DAILY [facility] Last Admin: 04/05/19 08:41 Dose: 5 mg Fluticasone Propionate (Flonase Nasal [place] 50mcg*) 2 spray BOTH NARES DAILY [facility] Last Admin: 04/05/19 08:41 Dose: Not Given Guaifenesin (Robitussin*) 5 ml PO Q4HR PRN PRN Reason: CONSTIPATION Lorazepam (Ativan Tab(*)) 0.5 mg SL Q3H PRN PRN Reason: ANXIETY Last Admin: 04/05/19 08:40 Dose: 0.5 mg Magnesium Hydroxide (Milk Of Magnesia Liq*) 30 ml PO Q6H PRN PRN Reason: CONSTIPATION Last Admin: 03/29/19 16:44 Dose: 30 ml Midodrine (Midodrine) 5 mg PO TID [facility]; Protocol Last Admin: 04/05/19 08:41 Dose: 5 mg Morphine Sulfate (Morphine Oral Concentrate*) 5 mg SL Q30M PRN PRN Reason: PAIN - MILD Last Admin: 04/02/19 16:51 Dose: 5 mg Nystatin (Nystatin Top Powder*) 1 applic TOPICAL BID [facility] Last Admin: 04/05/19 08:41 Dose: 1 applic Polyethylene Glycol/Electrolytes (Miralax*) 17 gm PO DAILY PRN PRN Reason: CONSTIPATION Last Admin: 04/05/19 08:39 Dose: 17 gm Senna (Senokot 8.6 Mg Tab*) 1 tab PO BID [facility] Last Admin: 04/05/19 08:40 Dose: 1 tab Tramadol HCl (Ultram*) 50 mg PO Q6HR PRN PRN Reason: PAIN - MODERATE Last Admin: 03/30/19 15:44 Dose: 50 mg Trazodone HCl (Desyrel Tab*) 100 mg PO BEDTIME [facility] Last Admin: 04/04/19 21:03 Dose: 100 mg Warfarin Sodium (Coumadin Tab(*)) 1 mg PO 1700 [facility]; Protocol Last Admin: 04/04/19 16:21 Dose: 1 mg Vital Signs - 8 hr 04/05/19 08:40 Respiratory 20 Rate Oxygen Devices in Use Now: Nasal Cannula Appearance: Alert, partly on L side. In fair spirits. Looks comfortable, sl tachypneic. Eyes: No Scleral Icterus Respiratory: Symmetrical Chest Expansion and Respiratory Effort, Clear to Auscultation, Clear to Percussion Cardiovascular: RRR, No Edema, - - 1-2/6 systolic murmur RSB Extremities: No Edema, No Clubbing, Cyanosis, - Skin: No Rash or Ulcers, No Nodules or Sclerosis, - Neurological: NL Sensation - Gave his age as 82, present month as December, doesn't know the name of this facility, says it is a , - - Gave his age as 82, present month as December. Doesn't know the name of this facility, states it is a "[facility]." KARISHMA. Result Diagrams: 03/31/19 09:16 03/31/19 09:16 Microbiology and Other Data: Microbiology 03/31/19 13:40 Urine Culture - Final Urine Enterococcus Faecalis Assess/Plan/Problems-Billing Assessment: Mr Hester is an 88yo M with PMH of type 2 DM, dementia, GERD, HTN, CAD, Hodgkin' s lymphoma, s/p pacemaker, systolic CHF EF 20-25%, recent admission for ischemic stroke who was sent to ED due to hypoxia and agitation. - Patient Problems (1) Atrial fibrillation Current Visit: Yes Status: Acute Code(s): I48.91 - UNSPECIFIED ATRIAL FIBRILLATION SNOMED Code(s): 48803784 Comment: Last dose of sulfa was 04/01/19. Reduced warfarin to 1 mg daily, started 04/04. Plan INR in 2-3 days. His HCP Batsheva Lopez wants to continue warfarin. I spoke with her 04/04 and explained why it might be better to stop it. 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 - Palliative care and Cardiology consults much appreciated. Patient's HCP (his cousin) has elected comfort care measures and plan is to discharge to SNF with Hospice. (3) Dementia Current Visit: Yes Status: Acute Code(s): F03.90 - UNSPECIFIED DEMENTIA WITHOUT BEHAVIORAL DISTURBANCE SNOMED Code(s): 86112486 Comment: - Patient with known h/o dementia, with periods of agitation and aggressivity. - Stop temazepam as not using it. Continue GDR of trazodone. - Supportive care. (4) Hypotension Current Visit: Yes Status: Acute Comment: - Suspect this is likely secondary to his systolic CHF and aortic stenosis/insufficiency. No signs of active infection at this time. - Palliative care consult with Dr Breaux appreciated. (5) End of life care Current Visit: Yes Status: Acute Code(s): Z51.5 - ENCOUNTER FOR PALLIATIVE CARE SNOMED Code(s): 279242519 Comment: If discussed reducing his meds with Batsheva Lopez, his HCP. She would like to continue warfarin and ASA to prevent a stroke. Status and Disposition: Inpatient. Comfort care measures, plan to d/c to SNF with Hospice.
[2019-04-05] MEDS: Acetaminophen TAB* 325 MG PO PRN (13:03)
[2019-04-05] MEDS: Morphine ORAL CONCENTRATE* 5 MG/0.25 ML ORAL.SYRIN SL PRN ×2 (13:04→22:53)
[2019-04-05] MEDS: Warfarin TAB(*) 1 MG PO SCH (18:06)
[2019-04-05] MEDS: traZODone TAB* 100 MG PO SCH (21:20)
[2019-04-06] MEDS: LORazepam TAB(*) 0.5 MG SL PRN ×3 (01:16→20:39)
[2019-04-06] MEDS: Aspirin 81 mg CHEW TAB* 81 MG TAB.CHEW PO SCH (08:36)
[2019-04-06] MEDS: Finasteride TAB* 5 MG PO SCH (08:36)
[2019-04-06] MEDS: Famotidine TAB* 20 MG PO SCH ×2 (08:36→20:40)
[2019-04-06] MEDS: Senna TAB 8.6 mg* TAB PO SCH ×2 (08:36→20:40)
[2019-04-06] MEDS: Nystatin TOP POWDER* 15 GM BTL TOPICAL SCH ×2 (08:39→20:38)
[2019-04-06] MEDS: Fluticasone NASAL SPRAY 50MCG* 16 gm SPRAY BTL BOTH NARES SCH (08:39)
--- NOTE | 2019-04-06 08:59 | PN ---
Subjective Date of Service: 04/06/19 Interval History: Mr. Hester is not feeling well this morning, but he is unable to further describe any complaints. He feels "all screwed up" and thinks he needs something , but is not sure what. Denies CP, SOB. No concerns from nursing. Family History: Unchanged from Admission Social History: Unchanged from Admission Past Medical History: Unchanged from Admission Objective Active Medications: Acetaminophen (Tylenol Tab*) 650 mg PO Q4H PRN PAIN-MODERATE/TEMP >/= 100.4 Albuterol/Ipratropium (Duoneb (Albuterol 2.5 Mg/Ipratropium 0.5 Mg)) 1 neb INH Q4H PRN SOB/WHEEZING Artificial Tears (Lacrilube Oint*) 1 applic BOTH EYES Q8HR PRN DRY EYE Aspirin (Aspirin 81 Mg Chew Tab*) 81 mg PO DAILY [facility] Atropine Sulfate (Atropine 1% (Oral/Sl)*) 2 drop SL Q2H PRN DYSPNEA Famotidine (Pepcid Tab*) 20 mg PO BID [facility] Finasteride (Proscar Tab*) 5 mg PO DAILY [facility] Fluticasone Propionate (Flonase Nasal [place] 50mcg*) 2 spray BOTH NARES DAILY [facility] Guaifenesin (Robitussin*) 5 ml PO Q4HR PRN CONSTIPATION Lorazepam (Ativan Tab(*)) 0.5 mg SL Q3H PRN ANXIETY Magnesium Hydroxide (Milk Of Magnesia Liq*) 30 ml PO Q6H PRN CONSTIPATION Midodrine (Midodrine) 5 mg PO TID [facility]; Protocol Morphine Sulfate (Morphine Oral Concentrate*) 5 mg SL Q30M PRN PAIN - MILD Nystatin (Nystatin Top Powder*) 1 applic TOPICAL BID [facility] Polyethylene Glycol/Electrolytes (Miralax*) 17 gm PO DAILY PRN CONSTIPATION Senna (Senokot 8.6 Mg Tab*) 1 tab PO BID [facility] Tramadol HCl (Ultram*) 50 mg PO Q6HR PRN PAIN - MODERATE Trazodone HCl (Desyrel Tab*) 100 mg PO BEDTIME [facility] Warfarin Sodium (Coumadin Tab(*)) 1 mg PO 1700 [facility]; Protocol Vital Signs - 8 hr 04/06/19 04/06/19 01:16 04:49 Respiratory 18 16 Rate Oxygen Devices in Use Now: Nasal Cannula - 2L Appearance: Elderly male sitting in bed, dyspneic, but in NAD Eyes: No Scleral Icterus Ears/Nose/Mouth/Throat: Mucous Membranes Moist Neck: NL Appearance and Movements; NL JVP, Trachea Midline Respiratory: Symmetrical Chest Expansion and Respiratory Effort, Clear to Auscultation Cardiovascular: NL Sounds; No Murmurs; No JVD Abdominal: NL Sounds; No Tenderness; No Distention Extremities: No Edema Neurological: - - Oriented to self Lines/Tubes/Other Access: Clean, Dry and Intact Peripheral IV Nutrition: Taking PO's Result Diagrams: 03/31/19 09:16 03/31/19 09:16 Assess/Plan/Problems-Billing Assessment: Mr. Hester is an 88 yo M with PMH of type 2 DM, dementia, GERD, HTN, CAD, Hodgkin 's lymphoma, s/p pacemaker, systolic CHF EF 20-25%, with recent admission for ischemic stroke, who was sent to ED due to hypoxia and agitation and subsequently made comfort care. - Patient Problems (1) Comfort measures only status Code(s): Z51.5 - ENCOUNTER FOR PALLIATIVE CARE Comment: - Appreciate Palliative consult - Continue morphine, atropine (2) Hypotension Comment: - Suspect this is likely secondary to his systolic CHF and aortic stenosis/ insufficiency - No signs of active infection at this time - Continue midodrine (3) Chronic systolic CHF (congestive heart failure) Code(s): I50.22 - CHRONIC SYSTOLIC (CONGESTIVE) HEART FAILURE Comment: - End stage cardiomyopathy and mod - Palliative care and Cardiology consults much appreciated - BB and diuretics stopped d/t hypotension (4) Atrial fibrillation Code(s): I48.91 - UNSPECIFIED ATRIAL FIBRILLATION Comment: - HCP would like to continue warfarin despite risks - Reduced warfarin to 1 mg daily, started 04/04 - Repeat INR tomorrow (5) Dementia Code(s): F03.90 - UNSPECIFIED DEMENTIA WITHOUT BEHAVIORAL DISTURBANCE Comment : - Previous history periods of agitation and aggression, though has been appropriate - Continue GDR of trazodone (6) DVT prophylaxis Comment: - Warfarin (7) DNR (do not resuscitate) Comment: Status and Disposition: Inpatient. Comfort care measures with plan to d/c to SNF with Hospice when bed available. Attending: Frida Hope
[2019-04-06] MEDS: Warfarin TAB(*) 1 MG PO SCH (17:26)
[2019-04-06] MEDS: traZODone TAB* 100 MG PO SCH (20:39)
[2019-04-06] MEDS: Acetaminophen TAB* 325 MG PO PRN (20:40)
[2019-04-07] MEDS: Nystatin TOP POWDER* 15 GM BTL TOPICAL SCH (09:54)
[2019-04-07] MEDS: Fluticasone NASAL SPRAY 50MCG* 16 gm SPRAY BTL BOTH NARES SCH (09:55)
[2019-04-07] MEDS: Finasteride TAB* 5 MG PO SCH (10:03)
[2019-04-07] MEDS: Senna TAB 8.6 mg* TAB PO SCH (10:03)
[2019-04-07] MEDS: Famotidine TAB* 20 MG PO SCH (10:03)
[2019-04-07] MEDS: Aspirin 81 mg CHEW TAB* 81 MG TAB.CHEW PO SCH (10:03)
--- NOTE | 2019-04-07 14:04 | PN ---
Subjective Date of Service: 04/07/19 Interval History: Mr. Hester is feeling fine this morning. He offers no complaints and would like to go back to sleep. He does not think he is having any SOB or CP. Was up sitting in a chair earlier today. No concerns from nursing. Family History: Unchanged from Admission Social History: Unchanged from Admission Past Medical History: Unchanged from Admission Objective Active Medications: Acetaminophen (Tylenol Tab*) 650 mg PO Q4H PRN PAIN-MODERATE/TEMP >/= 100.4 Albuterol/Ipratropium (Duoneb (Albuterol 2.5 Mg/Ipratropium 0.5 Mg)) 1 neb INH Q4H PRN SOB/WHEEZING Artificial Tears (Lacrilube Oint*) 1 applic BOTH EYES Q8HR PRN DRY EYE Aspirin (Aspirin 81 Mg Chew Tab*) 81 mg PO DAILY [facility] Atropine Sulfate (Atropine 1% (Oral/Sl)*) 2 drop SL Q2H PRN DYSPNEA Famotidine (Pepcid Tab*) 20 mg PO BID [facility] Finasteride (Proscar Tab*) 5 mg PO DAILY [facility] Fluticasone Propionate (Flonase Nasal [place] 50mcg*) 2 spray BOTH NARES DAILY [facility] Guaifenesin (Robitussin*) 5 ml PO Q4HR PRN CONSTIPATION Lorazepam (Ativan Tab(*)) 0.5 mg SL Q3H PRN ANXIETY Magnesium Hydroxide (Milk Of Magnesia Liq*) 30 ml PO Q6H PRN CONSTIPATION Midodrine (Midodrine) 5 mg PO TID [facility]; Protocol Morphine Sulfate (Morphine Oral Concentrate*) 5 mg SL Q30M PRN PAIN - MILD Nystatin (Nystatin Top Powder*) 1 applic TOPICAL BID [facility] Polyethylene Glycol/Electrolytes (Miralax*) 17 gm PO DAILY PRN CONSTIPATION Senna (Senokot 8.6 Mg Tab*) 1 tab PO BID [facility] Tramadol HCl (Ultram*) 50 mg PO Q6HR PRN PAIN - MODERATE Trazodone HCl (Desyrel Tab*) 100 mg PO BEDTIME [facility] Warfarin Sodium (Coumadin Tab(*)) 1 mg PO 1700 [facility]; Protocol Vital Signs - 8 hr 04/07/19 04/07/19 07:47 09:56 Temperature 98.1 F Pulse Rate 76 90 Respiratory 14 Rate Blood Pressure 79/61 (mmHg) O2 Sat by Pulse 96 95 Oximetry Oxygen Devices in Use Now: Nasal Cannula - 2L Appearance: Elderly male laying in bed in NAD Eyes: No Scleral Icterus Ears/Nose/Mouth/Throat: Mucous Membranes Moist Neck: NL Appearance and Movements; NL JVP, Trachea Midline Respiratory: Symmetrical Chest Expansion and Respiratory Effort, Clear to Auscultation Cardiovascular: NL Sounds; No Murmurs; No JVD Extremities: No Edema Neurological: - - Oriented to self Lines/Tubes/Other Access: Clean, Dry and Intact Peripheral IV Nutrition: Taking PO's Result Diagrams: 03/31/19 09:16 03/31/19 09:16 Assess/Plan/Problems-Billing Assessment: Mr. Hester is an 88 yo M with PMH of type 2 DM, dementia, GERD, HTN, CAD, Hodgkin 's lymphoma, s/p pacemaker, systolic CHF EF 20-25%, with recent admission for ischemic stroke, who was sent to ED due to hypoxia and agitation and subsequently made comfort care. - Patient Problems (1) Comfort measures only status Code(s): Z51.5 - ENCOUNTER FOR PALLIATIVE CARE Comment: - Appreciate Palliative consult - Continue morphine, atropine (2) UTI (urinary tract infection) Comment: - Urine culture grew >100k colonies Enterococcus - Spoke with HCP who would like him to receive abx for this - Start Augmentin (3) Hypotension Comment: - Suspect this is likely secondary to his systolic CHF and aortic stenosis/ insufficiency - No signs of active infection at this time - Continue midodrine (4) Chronic systolic CHF (congestive heart failure) Code(s): I50.22 - CHRONIC SYSTOLIC (CONGESTIVE) HEART FAILURE Comment: - End stage cardiomyopathy and moderate - Palliative care and Cardiology consults much appreciated - BB and diuretics stopped d/t hypotension (5) Atrial fibrillation Code(s): I48.91 - UNSPECIFIED ATRIAL FIBRILLATION Comment: - HCP would like to continue warfarin despite risks - Reduced warfarin to 1 mg daily, started 04/04 - Repeat INR tomorrow (6) Dementia Code(s): F03.90 - UNSPECIFIED DEMENTIA WITHOUT BEHAVIORAL DISTURBANCE Comment : - Previous history periods of agitation and aggression, though has been appropriate - Continue GDR of trazodone (7) DVT prophylaxis Comment: - Warfarin (8) DNR (do not resuscitate) Comment: Status and Disposition: Inpatient. Comfort care measures with plan to d/c to SNF with hospice when bed available. Attending: Frida Hope
[2019-04-07] MEDS: LORazepam TAB(*) 0.5 MG SL PRN (16:47)
[2019-04-07] MEDS: Warfarin TAB(*) 1 MG PO SCH (16:48)
[2019-04-07] MEDS: Acetaminophen TAB* 325 MG PO PRN (16:48)
[2019-04-08] MEDS: Famotidine TAB* 20 MG PO SCH ×3 (02:36→21:01)
[2019-04-08] MEDS: Amoxicillin/Clavulanate TAB* 500 MG PO SCH ×3 (02:36→20:56)
[2019-04-08] MEDS: Nystatin TOP POWDER* 15 GM BTL TOPICAL SCH ×2 (02:36→10:19)
[2019-04-08] MEDS: Senna TAB 8.6 mg* TAB PO SCH ×3 (02:36→21:01)
[2019-04-08] MEDS: traZODone TAB* 100 MG PO SCH (02:37)
[2019-04-08 07:31] LABS: INR 1.96 (0.82-1.09)
[2019-04-08 10:17] VITALS: BP 92/64
[2019-04-08] MEDS: Finasteride TAB* 5 MG PO SCH (10:19)
[2019-04-08] MEDS: Fluticasone NASAL SPRAY 50MCG* 16 gm SPRAY BTL BOTH NARES SCH (10:20)
--- NOTE | 2019-04-08 13:59 | PN ---
Subjective Date of Service: 04/08/19 Interval History: No c/o. Denies pain, SOB, nausea. Appetite OK. Family History: Unchanged from Admission Social History: Unchanged from Admission Past Medical History: Unchanged from Admission Objective Active Medications: Acetaminophen (Tylenol Tab*) 650 mg PO Q4H PRN PRN Reason: PAIN-MODERATE/TEMP >/= 100.4 Last Admin: 04/07/19 16:48 Dose: 650 mg Albuterol/Ipratropium (Duoneb (Albuterol 2.5 Mg/Ipratropium 0.5 Mg)) 1 neb INH Q4H PRN PRN Reason: SOB/WHEEZING Amoxicillin/Clavulanate Potassium (Augmentin Tab*) 500 mg PO BID [facility] Stop: 04/14/19 20:59 Last Admin: 04/08/19 10:19 Dose: 500 mg Artificial Tears (Lacrilube Oint*) 1 applic BOTH EYES Q8HR PRN PRN Reason: DRY EYE Atropine Sulfate (Atropine 1% (Oral/Sl)*) 2 drop SL Q2H PRN PRN Reason: DYSPNEA Famotidine (Pepcid Tab*) 20 mg PO BID [facility] Last Admin: 04/08/19 10:19 Dose: 20 mg Finasteride (Proscar Tab*) 5 mg PO DAILY [facility] Last Admin: 04/08/19 10:19 Dose: 5 mg Fluticasone Propionate (Flonase Nasal [place] 50mcg*) 2 spray BOTH NARES DAILY [facility] Last Admin: 04/08/19 10:20 Dose: 2 spray Guaifenesin (Robitussin*) 5 ml PO Q4HR PRN PRN Reason: CONSTIPATION Lorazepam (Ativan Tab(*)) 0.5 mg SL Q3H PRN PRN Reason: ANXIETY Last Admin: 04/07/19 16:47 Dose: 0.5 mg Magnesium Hydroxide (Milk Of Magnesia Liq*) 30 ml PO Q6H PRN PRN Reason: CONSTIPATION Last Admin: 03/29/19 16:44 Dose: 30 ml Midodrine (Midodrine) 5 mg PO TID [facility]; Protocol Last Admin: 04/08/19 13:51 Dose: 5 mg Morphine Sulfate (Morphine Oral Concentrate*) 5 mg SL Q30M PRN PRN Reason: PAIN - MILD Last Admin: 04/05/19 22:53 Dose: 5 mg Nystatin (Nystatin Top Powder*) 1 applic TOPICAL BID [facility] Last Admin: 04/08/19 10:19 Dose: 1 applic Polyethylene Glycol/Electrolytes (Miralax*) 17 gm PO DAILY PRN PRN Reason: CONSTIPATION Last Admin: 04/05/19 08:39 Dose: 17 gm Senna (Senokot 8.6 Mg Tab*) 1 tab PO BID [facility] Last Admin: 04/08/19 10:19 Dose: 1 tab Tramadol HCl (Ultram*) 50 mg PO Q6HR PRN PRN Reason: PAIN - MODERATE Last Admin: 03/30/19 15:44 Dose: 50 mg Trazodone HCl (Desyrel Tab*) 100 mg PO BEDTIME [facility] Last Admin: 04/08/19 02:37 Dose: Not Given Warfarin Sodium (Coumadin Tab(*)) 1 mg PO 1700 [facility]; Protocol Last Admin: 04/07/19 16:48 Dose: 1 mg Vital Signs - 8 hr 04/08/19 04/08/19 08:00 08:10 Temperature 97.1 F Pulse Rate 77 Respiratory 19 23 Rate Blood Pressure 92/64 (mmHg) O2 Sat by Pulse 96 Oximetry Oxygen Devices in Use Now: Nasal Cannula Appearance: Alert, supine in bed. Cheerful, praises the staff. Looks comfortable. Eyes: No Scleral Icterus Respiratory: Symmetrical Chest Expansion and Respiratory Effort, Clear to Auscultation, Clear to Percussion Cardiovascular: NL Sounds; No Murmurs; No JVD, RRR, No Edema, - Extremities: No Edema, No Clubbing, Cyanosis, - Skin: No Rash or Ulcers, No Nodules or Sclerosis, - Neurological: Alert and Oriented x 3, NL Sensation Result Diagrams: 03/31/19 09:16 03/31/19 09:16 Microbiology and Other Data: Microbiology 03/31/19 13:40 Urine Culture - Final Urine Enterococcus Faecalis Assess/Plan/Problems-Billing Assessment: Mr. Hester is an 88 yo M with PMH of type 2 DM, dementia, GERD, HTN, CAD, Hodgkin 's lymphoma, s/p pacemaker, systolic CHF EF 20-25%, with recent admission for ischemic stroke, who was sent to ED due to hypoxia and agitation and subsequently made comfort care. - Patient Problems (1) Atrial fibrillation Current Visit: Yes Status: Acute Code(s): I48.91 - UNSPECIFIED ATRIAL FIBRILLATION SNOMED Code(s): 91315255 Comment: - HCP would like to continue warfarin despite risks INR 1.96 04/08, would repeat weekly uintil stable then less often. (2) Chronic systolic CHF (congestive heart failure) Current Visit: Yes Status: Acute Code(s): I50.22 - CHRONIC SYSTOLIC ( CONGESTIVE) HEART FAILURE SNOMED Code(s): 960633684 Comment: - End stage cardiomyopathy and moderate - Palliative care and Cardiology consults much appreciated - BB and diuretics stopped d/t hypotension (3) Dementia Current Visit: Yes Status: Acute Code(s): F03.90 - UNSPECIFIED DEMENTIA WITHOUT BEHAVIORAL DISTURBANCE SNOMED Code(s): 74947136 Comment: - Previous history of agitation and aggression, though no behavior problems noted here. - Continue GDR of trazodone, reduced to 75 mg on 04/08/19 (4) Hypotension Current Visit: Yes Status: Acute Comment: - Suspect this is likely secondary to his systolic CHF and aortic stenosis/ insufficiency - No signs of active infection at this time - Continue midodrine (5) End of life care Current Visit: Yes Status: Acute Code(s): Z51.5 - ENCOUNTER FOR PALLIATIVE CARE SNOMED Code(s): 307177587 Comment: If discussed reducing his meds with Batsheva Lopez, his HCP. She would like to continue warfarin and ASA to prevent a stroke. Status and Disposition: Inpatient. Comfort care measures with plan to d/c to SNF with hospice when bed available.
[2019-04-08] MEDS: LORazepam TAB(*) 0.5 MG SL PRN (14:04)
[2019-04-08] MEDS: Warfarin TAB(*) 1 MG PO SCH (18:26)
[2019-04-08] MEDS ORDERED: traZODone TAB* 50 MG TAB PO SCH (21:00)
[2019-04-09] MEDS: LORazepam TAB(*) 0.5 MG SL PRN (01:35)
[2019-04-09] MEDS: Nystatin TOP POWDER* 15 GM BTL TOPICAL SCH ×2 (03:44→09:28)
[2019-04-09] MEDS: Famotidine TAB* 20 MG PO SCH (09:27)
[2019-04-09] MEDS: Senna TAB 8.6 mg* TAB PO SCH (09:27)
[2019-04-09] MEDS: Finasteride TAB* 5 MG PO SCH (09:27)
[2019-04-09] MEDS: Amoxicillin/Clavulanate TAB* 500 MG PO SCH (09:28)
[2019-04-09] MEDS: Fluticasone NASAL SPRAY 50MCG* 16 gm SPRAY BTL BOTH NARES SCH (09:28)
--- NOTE | 2019-04-09 11:36 | DS ---
CC: Dr. Umana; veterinary pathologist, Dr. Foster; Palliative Care, Dr. Breaux; consulting veterinary pathologist, Dr. Pastor; [facility]. ADDENDUM: DATE OF ADMISSION: 03/25/19 DATE OF DISCHARGE: 04/09/19 If you need more details about the patient's hospice stay, I refer you to my original discharge summary from 04/02/19. After that discharge summary, the patient remained in stable condition and he was just waiting for a shelter bed offer. He had no new complaints and he continued to have the same issues with his congestive heart failure and hypotension. His urine culture done on admission grew Enterococcus faecalis greater than 100,000 colonies, but his UA showed only trace LE. The patient had no urinary symptoms and I believe this does not represent a urinary tract infection, only colonization, so antibiotics were discontinued. The patient is tolerating diet well and he has spent most of the day sleeping in his bed. He still has mild episodes of agitation overnight, but did not need escalation of medications. The patient was admitted for a stroke. The patient was admitted to [facility] in mid March with a CVA and after discussing with his healthcare proxy, the plan is to continue anticoagulation for now including warfarin and aspirin to prevent further stroke, but I believe as his condition continues to decline and he signed on to hospice, further conversation should be held to decide about streamlining his medication list and to remove things that are not adding to his comfort. The patient's last INR was 1.96 on 04/08/19 and the plan is to repeat his INR weekly to goal between 2 and 3. The patient is medically stable for discharge to [facility] today to be evaluated by hospice. PHYSICAL EXAMINATION: Vital Signs: Temperature is 97.1, heart rate 75, respiratory rate is 18, oxygen saturation is 96% on 2 L nasal cannula, blood pressure is 92/64. General: The patient is an elderly gentleman lying in bed in no acute distress. CVS: Normal S1, S2. Regular rate and rhythm. Chest: Breath sounds are present bilaterally with bibasilar crackles. Abdomen is obese. Bowel sounds are present. Extremities: Trace edema. Neuro: He is sleepy. Easily arousable. Oriented to self and place. Able to move all 4 extremities. REVISED MEDICATION LIST: 1. Acetaminophen 650 mg p.o. q.4 hours p.r.n. pain or fever. 2. Albuterol/ipratropium nebulized q.4 hours p.r.n. shortness of breath. 3. Lacri-Lube ointment to both eyes q. 8 hours p.r.n. dry eyes. 4. Aspirin 81 mg p.o. daily. 5. Atropine 1% 2 drops sublingual q.2 hours p.r.n. terminal secretions. 6. Famotidine 20 mg p.o. b.i.d. 7. Finasteride 5 mg p.o. daily. 8. Guaifenesin 100 to 200 mg p.o. q.4 hours p.r.n. cough. 9. Loperamide 2 mg p.o. q.i.d. p.r.n. diarrhea. 10. Lorazepam 0.5 mg sublingual q. 3 hours p.r.n. anxiety. 11. Milk of magnesia 30 mL p.o. q.6 hours p.r.n. constipation. 12. Midodrine 5 mg p.o. t.i.d. 13. Mirtazapine 7.5 mg p.o. at bedtime. 14. Morphine oral concentrate 5 mg q.1 hour p.r.n. pain and tachypnea with respiratory rate greater than 24. 15. Nystatin powder topical b.i.d. 16. MiraLAX 17 g p.o. daily as needed for constipation. 17. Senna 1 tablet p.o. b.i.d. hold for loose stools. 18. Temazepam 15 mg p.o. at bedtime as needed for insomnia. 19. Tramadol 50 mg p.o. q.6 hours p.r.n. pain. 20. Trazodone 200 mg p.o. at bedtime. 21. Warfarin 1 mg p.o. on Sundays and and 1.5 mg p.o. on Friday, Friday, Friday, Friday, and Friday. DIET: Regular diet for comfort. ACTIVITIES: As tolerated. DISPOSITION: To [facility] with hospice. CONDITION AT THE TIME OF DISCHARGE: Guarded. STATUS WHILE IN THE HOSPITAL: Inpatient. Please keep in mind that this a summarized version of this patient's hospital stay. If you need more information, please feel free to call me at [phone] or please obtain full medical records. TIME SPENT: Approximately 40 minutes was spent to complete the discharge of this patient. [id number]/[facility] #: [id number]
== END 2019-04-09 12:30 | DRG 884 ==
LOC: ED 01:43 → MED 07:55 → OBSVTOIN 03-27 10:00
PROVIDERS: ADMIT Internal Medicine; ATTEND Internal Medicine
DX: F03.90 Unspecified dementia, unspecified severity, without behavioral disturbance, psychotic disturbance, mood disturbance, and anxiety (principal); I50.22 Chronic systolic (congestive) heart failure; I42.9 Cardiomyopathy, unspecified; R09.02 Hypoxemia; I11.0 Hypertensive heart disease with heart failure; E11.9 Type 2 diabetes mellitus without complications; I48.91 Unspecified atrial fibrillation; I25.10 Atherosclerotic heart disease of native coronary artery without angina pectoris; E78.00 Pure hypercholesterolemia, unspecified; K21.9 Gastro-esophageal reflux disease without esophagitis; N40.0 Benign prostatic hyperplasia without lower urinary tract symptoms; G89.29 Other chronic pain; M54.9 Dorsalgia, unspecified; H91.90 Unspecified hearing loss, unspecified ear; F41.9 Anxiety disorder, unspecified; Z66 Do not resuscitate; I95.9 Hypotension, unspecified; I08.3 Combined rheumatic disorders of mitral, aortic and tricuspid valves; E78.5 Hyperlipidemia, unspecified; I27.20 Pulmonary hypertension, unspecified; Z95.0 Presence of cardiac pacemaker; Z85.71 Personal history of Hodgkin lymphoma; Z83.3 Family history of diabetes mellitus; Z87.440 Personal history of urinary (tract) infections; Z84.1 Family history of disorders of kidney and ureter; Z87.891 Personal history of nicotine dependence; Z91.19 Patient's noncompliance with other medical treatment and regimen; Z92.21 Personal history of antineoplastic chemotherapy; Z86.73 Personal history of transient ischemic attack (TIA), and cerebral infarction without residual deficits; Z51.5 Encounter for palliative care; Z79.82 Long term (current) use of aspirin; Z79.01 Long term (current) use of anticoagulants
CPT/HCPCS: 36415; 71045; 80053; 81003; 81015; 83605; 83880; 84484; 85025; 85610; 85730; 87077; 87086; 87186; 93005; 99284; A9270-GY; G8978-GP-CL; G8979-GP-CJ; G8987-GO-CL; G8988-GO-CJ; J1160